=== PATIENT | male | born 1930 | race Caucasian/White ===

== ENCOUNTER 2017-03-18 16:48 | Inpatient (IN) | payer MEDICARE, OTHER ==
[~2017-03-18] VITALS: Ht 195.6 cm; Wt 115.7 kg
[~2017-03-18 16:48] MED LIST: ACYCLOVIR 800800 MG PO; CIPRO500 MG PO; COUMADIN 1MG TAB1 M1 PO; CRESTOR5 MG PO; GLUCOSAMINE HC500 MG PO; I-CAPS; MUCINEX TA600 MG/TA1 PO; NORCO 5-325 TA1 EACH PO; OMEGA-31000 MG PO; OMEPRAZOLE20 M2 PO; PROPAFENONE 15150 MG PO; VERAPAMIL E.R240 M1 PO; VITAMIN D3400 UNIT PO
[2017-03-18 16:53] VITALS: BP 159/81
[2017-03-18] MEDS ORDERED: AMIODARONE HCL100 MG PO (16:58)
[2017-03-18] MEDS ORDERED: VITAMIN D3400 UNIT PO (17:00)
[2017-03-18] MEDS ORDERED: VITAMIN E400 UNIT PO (17:01)
[2017-03-18] MEDS ORDERED: SYNTHROID75 MCG PO (17:01)
[2017-03-18] MEDS ORDERED: ASPIR 8181 MG PO (17:01)
[2017-03-18 17:19] LABS: HEMATOCRIT 41.1 % (42.0-52.0); HEMOGLOBIN 13.5 gm/dL (14.0-18.0); MCH 31.4 pg (26.0-34.0); MCHC 32.9 g/dL (28.0-37.0); MCV 95.5 fL (80.0-100.0); MPV 8.7 fl. (7.2-11.1); NUCLEATED RBCS 0 /100WBC; PLATELET COUNT* 146 thou/uL (150-400); RBC 4.31 mil/uL (4.50-6.00); RDW-CV 15.2 % (10.5-14.5); WBC 7.3 thou/uL (4.0-11.0)
[2017-03-18 17:29] LABS: ANION GAP 11 mmol/L (7-16); BUN 13 mg/dL (7-18); CALCIUM 8.5 mg/dL (8.5-10.1); CHLORIDE 98 mmol/L (98-107); CO2 27 mmol/L (21-32); GLUCOSE 132 mg/dL (70-99); POTASSIUM 3.3 mmol/L (3.5-5.1); SODIUM 136 mmol/L (136-145)
--- NOTE | 2017-03-18 17:33 | NUR ---
PT UNABLE TO PROVIDE URINE AT THIS TIME.
[2017-03-18 17:38] LABS: INFLUENZA B ANTIGEN None Detected (None Detect)
[2017-03-18 17:40] LABS: ALBUMIN 3.8 g/dL (3.4-5.0); ALKALINE PHOSPHATASE 59 U/L (46-116); INR 2.5; LIPASE 76 U/L (73-393); NT-PRO BRAIN NAT PEPTIDE 2387 pg/mL (<300); PROTIME 24.1 Seconds (9.20-11.50); SGOT 52 U/L (15-37); SGPT 38 U/L (30-65); TOTAL BILIRUBIN 0.8 mg/dL (<0.1-1.0); TOTAL PROTEIN 8.1 g/dL (6.4-8.2); TROPONIN-I LEVEL <0.06 ng/mL (<0.06)
[2017-03-18 17:41] LABS: ABSOLUTE LYMPHOCYTES 0.4 thou/uL (0.8-5.3); ABSOLUTE MONOCYTES 0.1 thou/uL (0.0-1.2); ABSOLUTE NEUTROPHILS 6.8 thou/uL (1.6-8.1); PLATELET ESTIMATE ADEQUATE
--- NOTE | 2017-03-18 18:53 | NUR ---
REPORT GIVEN TO SANDRA RHOADES.
--- NOTE | 2017-03-18 19:49 | NUR ---
PATIENT ADMITTED WITH PNEUMONIA WITH ORDERS FROM DR MATHEWS FOR PHARMACY TO DOSE VANCOMYCIN. PT HAS NO HISTORY OF RENAL DYSFUNCTION AND CURRENT LABS INCLUDE WBC=7.3, CR=1.0, CRCL (ADJUSTED BW) =68.2. PER PHARMACY PROTOCOL, PATIENT WILL RECEIVE A 2G VANCOMYCIN BOLUS, FOLLOWED BY 1G Q8H THEREAFTER. A TROUGH IS SCHEDULED FOR 03/20 AT 1130 AND PHARMACY WILL FOLLOW.
[2017-03-18 20:15] VITALS: BP 121/70
[2017-03-18 21:30] VITALS: BP 115/77
[2017-03-19] VITALS: BP 112/67
--- NOTE | 2017-03-19 00:14 | NUR ---
PATIENT ADMITTED TO FLOOR FROM ER AT 2130, ADMITTED FOR RESP DISTRESS, INFLUENCA A, AND FALL AT HOME. PATIENT SUSTAINED A CONTUSION TO BACK AND RT RIB AREA FROM FALL AT HOME. PAIN MEDS WERE GIVEN IN ER AND WHEN ARRIVED TO FLOOR PATIENT DENIED ANY PAIN. LS DIMINISHED. ABD SOFT, COUGH LOOSE, O2 2 LITERS NC, IV VANCO RUNNING, NS AT 100. NO SIGNS OF DISTRESS OR DISCOMFORT AT THIS TIME.
--- NOTE | 2017-03-19 02:47 | NUR ---
IV ACCIDENTALLY PULLED OUT BY PT. NEW SITE IN RT HAND. VANCO INFUSING. COUGH NON-PRODUCTIVE. DENIES PAIN OR DISCOMFORT.
[2017-03-19 04:11] VITALS: BP 120/80
[2017-03-19 04:21] LABS: ABSOLUTE LYMPHOCYTES 0.3 thou/uL (0.8-5.3); ABSOLUTE MONOCYTES 0.1 thou/uL (0.0-1.2); ABSOLUTE NEUTROPHILS 5.2 thou/uL (1.6-8.1); BASOPHILS 0.3 %; HEMATOCRIT 38.6 % (42.0-52.0); HEMOGLOBIN 12.5 gm/dL (14.0-18.0); LYMPHOCYTES 4.9 %; MCH 31.5 pg (26.0-34.0); MCHC 32.5 g/dL (28.0-37.0); MCV 96.9 fL (80.0-100.0); MONOCYTES 2.6 %; MPV 8.9 fl. (7.2-11.1); NUCLEATED RBCS 0 /100WBC; PLATELET COUNT* 122 thou/uL (150-400); POLYS 92.2 %; RBC 3.98 mil/uL (4.50-6.00); RDW-CV 15.5 % (10.5-14.5); WBC 5.6 thou/uL (4.0-11.0)
[2017-03-19 04:33] LABS: INR 2.3; PROTIME 22.2 Seconds (9.20-11.50)
[2017-03-19 04:56] LABS: CALCIUM 7.8 mg/dL (8.5-10.1); CREATININE 0.9 mg/dL (0.6-1.3); POTASSIUM 3.4 mmol/L (3.5-5.1)
[2017-03-19 08:00] VITALS: BP 150/87
[2017-03-19 12:48] VITALS: BP 129/70
--- NOTE | 2017-03-19 12:53 | NUR ---
ASSUMED CARE OF PT AT APPROXIMATELY 0730. PT SITTING ON EDGE OF BED WAITING FOR BREAKFAST. PT A&0X4. DENIES ANY PAIN OR SHORTNESS OF BREATH. STATES THERE IS SOME DISCOMFORT WHEN HE COUGHS DUE TO HIS BRUISED RIBS. PT TRACING AFIB ON THE TESTING CONSULTANT. ON 2L NC SAT 96%. PT IN DROPLET ISOLATION FOR INFLUENZA A. PT UP WITH 1 ASSIST TO BATHROOM. IVF. AM ASSESSMENT CHARTED. MEDICATIONS PER MAR. PT REPOSITIONS SELF IN BED WITH REMINDERS, HOURLY ROUNDING OBSERVED. BED IN LOW POSITION. BED ALARM IN PLACE. FALL PRECAUTIONS IN PLACE. CALL LIGHT WITHIN REACH. WILL CONTINUE PLAN OF CARE.
[2017-03-19 16:00] VITALS: BP 130/71
--- NOTE | 2017-03-19 18:13 | NUR ---
NO ACUTE CHANGES THROUGHOUT SHIFT. REFER TO CHARTING. PT COMPLAINED OF PAIN TO BACK FROM COUGHING. TREATED WITH TRAMADOL WITH COMPLETE RELIEF. PT ALSO STARTED ON TESSALON PEARLS. CONTINUES TO BE IN DROPLET PRECAUTIONS FOR INFLUENZA. CONTINUES TO TRACE AFIB ON THE CHUCK BONER. PT TITRATED OFF OXYGEN AND IS CURRENTLY ON RA SAT 95%. DENIES ANY SHORTNESS OF BREATH. IVF DISCONTINUED. PT UP WITH 1 ASSIST TO BATHROOM. MEDICATIONS PER MAR. PT REPOSITIONS SELF IN BED WITH REMINDERS. HOURLY ROUNDING OBSERVED. BED IN LOW POSITION. BED ALARM IN PLACE. FALL PRECAUTIONS IN PLACE. CALL LIGHT WITHIN REACH. WILL CONTINUE PLAN OF CARE.
[2017-03-19 20:40] VITALS: BP 142/92
[2017-03-20] VITALS: BP 132/86
[2017-03-20 04:00] VITALS: BP 116/76
[2017-03-20 05:42] LABS: HEMATOCRIT 38.5 % (42.0-52.0); HEMOGLOBIN 12.8 gm/dL (14.0-18.0); MCH 31.7 pg (26.0-34.0); MCHC 33.1 g/dL (28.0-37.0); MCV 95.8 fL (80.0-100.0); MPV 9.4 fl. (7.2-11.1); NUCLEATED RBCS 0 /100WBC; PLATELET COUNT* 129 thou/uL (150-400); RBC 4.02 mil/uL (4.50-6.00); RDW-CV 15.5 % (10.5-14.5); WBC 14.6 thou/uL (4.0-11.0)
[2017-03-20 05:54] LABS: INR 2.1; PROTIME 20.1 Seconds (9.20-11.50)
[2017-03-20 05:56] LABS: CREATININE 0.9 mg/dL (0.6-1.3); POTASSIUM 3.7 mmol/L (3.5-5.1)
[2017-03-20 06:12] LABS: ABSOLUTE LYMPHOCYTES 1.2 thou/uL (0.8-5.3); ABSOLUTE MONOCYTES 0.3 thou/uL (0.0-1.2); ABSOLUTE NEUTROPHILS 13.1 thou/uL (1.6-8.1); ANISOCYTOSIS 1+; PLATELET ESTIMATE DECREASED; POIKILOCYTOSIS 1+
--- NOTE | 2017-03-20 07:49 | NUR ---
Pt reports nagging cough this am; loose and non-productive. VSS; Afib per monitor. Will continue to monitor.
[2017-03-20 08:00] VITALS: BP 126/83
[2017-03-20 09:46] LABS: URINE BILIRUBIN NEGATIVE (Negative); URINE BLOOD NEGATIVE (Negative); URINE CLARITY CLEAR; URINE COLOR YELLOW; URINE GLUCOSE-RANDOM NEGATIVE (Negative); URINE KETONES NEGATIVE (Negative); URINE LEUKOCYTES-REFLEX NEGATIVE (Negative); URINE NITRITE-REFLEX NEGATIVE (Negative); URINE PROTEIN TRACE (Negative); URINE SPECIFIC GRAVITY 1.025 (1.005-1.030); URINE UROBILINOGEN 0.2 E.U./dl (0.2-1.0)
--- NOTE | 2017-03-20 11:58 | NUR ---
ASSUMED RESPONSBILITY OF PT THIS AM PT IS ALERT AND ORIENTED ON PRECAUTIONS FOR THE FLU PT WITH WET COUGH AND CONGESTION, NONPRODUCTIVE ENCOURAGED FLUIDS C/O PAIN TO RIGHT RIB AREA AND BACK ESPECIALLY WHEN COUGHING PT FELL AT HOME BRUISING ALL OVER ON COUMADIN A-FIB TRACKING ON THE MONITOR DOES GET TACHY AT TIMES BUT CONTROLLED MOSTLY IV CONT TO RIGHT HAND WITH IV ANTIBIOTICS PT STATES FOR BROTHER THE END OF THIS WEEK AND WOULD LIKE TO GO GOALS FOR THIS TO HAPPEN SBA FOR WEAKNESS OTHERWISE PT USES URINAL DARK YELLOW URINE LBM T-1 TRAMADOL GIVEN EARLIER FOR PAIN AND PLAN FOR LIDOCAINE PATCH ACCORDING TO DR MATHEWS CALL LIGHT IN REACH
[2017-03-20 12:00] VITALS: BP 130/72
--- NOTE | 2017-03-20 14:24 | NUR ---
PATIENT HAS BEEN RECEIVING VANCOMYCIN 1G Q8H FOR THE TREATMENT OF PNEUMONIA. A LEVEL DRAWN 03/20 YIELDED A RESULT OF 35 MCG/ML. HOWEVER, THE MEDICATION WAS HUNG AT 1251, PRIOR TO THE BLOOD DRAW AT 1333. THEREFORE, THIS RESULT IS NOT A TROUGH. THE PATIENT'S CRCL REMAINS STEADY AND A NEW TROUGH HAS BEEN SCHEDULED FOR 03/21 AT 1330.
--- NOTE | 2017-03-20 14:28 | NUR ---
CHART REVIEWED, SPOKE WITH PT, EXPLAINED ROLE OF CASE T. PT LIVES AT HOME WITH HIS . HE SAID HE HAS BEEN ACTIVE AND INDEP. HE HAS NO DME AT HOME, NO OXYGEN OR NEBULIZER. HE SAID HE WAS HOSPITALIZED WITH PNEUMONIA ABOUT A YEAR AGO AND WAS TOLD TO GET AN O2 SAT MONITOR TO KEEP AN EYE ON HIS SATS. HE SAID HIS ROOM AIR O2 SAT IS USUALLY ABOUT 95-97%. PT PLANS ON RETURNING HOME WITH HIS , HE DENIES ANY DISCHARGE NEEDS. CASE JIM WILL CONTINUE TO FOLLOW.
--- NOTE | 2017-03-20 14:39 | NUR ---
CALLED PHARMACY WITH CRITICAL VANC TROUGH THIS NURSE HAD ALREADY HUNG THE BAG AND DIDN'T NOTICE IT WAS TO BE DRAWN CONT THE VANC BAG AND REDRAW TOMORROW
--- NOTE | 2017-03-20 15:28 | EKG ---
[place] [address] ELECTROCARDIOGRAM REPORT Name: CATHERINEALANAEDYO Room: [address] ADM IN M.R.#: [id number] Admission: 03/18/17 Attend Phys: Topher Pérez MD Discharge: Date of : 32 Report #: [id number] THIS REPORT FOR: //name// [facility] ED Test Date: 2017-03-18 Test Time: 17:03:12 Pat Name: JESSY KENT Department: Room: [facility] Gender: Bung Driver: Alexandra BARILLAS : 1930 Requested By: Demetrio De Los Santos Order Number: [id number] MD: Joselito Baeza Measurements Intervals [place] Rate: 95 P: [place]: QRS: 84 QRSD: 100 T: -90 QT: 376 QTc: 473 Interpretive Statements Atrial fibrillation Borderline right axis deviation Repol abnrm suggests ischemia, diffuse leads No previous ECG available for comparison Electronically Signed On 03-20-2017 15:28:42 INSTRUMENT LENS GENERATOR by Joselito Baeza [email or web address] <ELECTRONICALLY SIGNED> By: Joselito Baeza MD, [facility] 03/20/17 1528 1703 1703 Joselito Baeza MD, [facility] /EPI
[2017-03-20 16:59] VITALS: BP 129/85
--- NOTE | 2017-03-20 18:02 | NUR ---
CHEST X-RAY CAME BACK WITH RIGHT RIB FRACTURE CONT WITH PRN TRAMADOL A-FIB ON THE MONITOR TACHY AT TIMES PT USES URINAL DARK YELLOW IN COLOR COUGH AND CONGESTION CONTINUES INFECTIOUS DISEASE CONSULTED
[2017-03-20 20:44] VITALS: BP 147/88
[2017-03-21] VITALS: BP 165/97
[2017-03-21 04:00] VITALS: BP 109/71
[2017-03-21 04:52] LABS: INR 2.4; PROTIME 22.7 Seconds (9.20-11.50)
[2017-03-21 05:08] LABS: MAGNESIUM 2.1 mg/dL (1.8-2.4)
--- NOTE | 2017-03-21 05:57 | NUR ---
PT IS ABLE TO COMMUNICATE NEEDS TO STAFF EFFECTIVELY. CURRENT PAIN MEDICATION REGIMEN HAS BEEN ADEQUATE FOR CONTROLLING HIS PAIN UP TO THIS TIME. DROPLET ISOLATION MAINTAINED FOR POSITIVE FLU SWAB. VANCO ON HOLD (SUPRATHERAPEUTIC) UNTIL REPEAT TROUGH TO BE DRAWN LATER TODAY.
[2017-03-21 08:15] VITALS: BP 106/69
[2017-03-21 11:38] VITALS: BP 113/69
--- NOTE | 2017-03-21 12:00 | NUR ---
ASSUMED PT CARE AT 0730, FULL ASSESMENT DONE CHARTED. PT A/O X4, VERY [place], PT HAS BRUISING FROM RECENT FALL. REVIEWED FALL RISKS WITH PT, CALL LIGHT USED APPROPRIALTY AND BED ALARM ON. PT PROVIDED WITH IS FROM RT. PT STATES HE CANNOT TAKE A DEEP BREATH, IT IS PAINFUL. PT STARTED ON MUCINEX. UNPRODUCTIVE COUGH NOTED. TRAMADOL GIVEN FOR PAIN. VSS, A FIB ON THE MONITOR. WILL CONTINUE WITH PLAN OF CARE
[2017-03-21 15:38] VITALS: BP 136/78
[2017-03-21 19:45] VITALS: BP 145/77
[2017-03-22] VITALS: BP 125/79
[2017-03-22 04:00] VITALS: BP 107/59
[2017-03-22 04:44] LABS: ABSOLUTE LYMPHOCYTES 0.6 thou/uL (0.8-5.3); ABSOLUTE MONOCYTES 0.6 thou/uL (0.0-1.2); ABSOLUTE NEUTROPHILS 7.2 thou/uL (1.6-8.1); BASOPHILS 0.1 %; EOSINOPHILS 0.1 %; HEMATOCRIT 37.4 % (42.0-52.0); HEMOGLOBIN 12.5 gm/dL (14.0-18.0); LYMPHOCYTES 6.6 %; MCH 32.1 pg (26.0-34.0); MCHC 33.5 g/dL (28.0-37.0); MCV 95.9 fL (80.0-100.0); MONOCYTES 7.2 %; MPV 9.3 fl. (7.2-11.1); NUCLEATED RBCS 0 /100WBC; PLATELET COUNT* 112 thou/uL (150-400); RDW-CV 15.4 % (10.5-14.5); WBC 8.3 thou/uL (4.0-11.0)
[2017-03-22 04:50] LABS: CALCIUM 7.8 mg/dL (8.5-10.1); CREATININE 0.9 mg/dL (0.6-1.3); POTASSIUM 3.7 mmol/L (3.5-5.1)
[2017-03-22 05:02] LABS: INR 2.6; PROTIME 24.6 Seconds (9.20-11.50)
--- NOTE | 2017-03-22 05:16 | NUR ---
Pt pleasant and coperative. States he is finally able to cough up some phlegm during this shift. Afib per monitor, VSS. ON 2L O2 per NC overnight per pt request. Breath sounds continue to be coarse; and noted to have loose, nontpoductive cough. Will continue to monitor.
[2017-03-22 08:00] VITALS: BP 138/92
--- NOTE | 2017-03-22 08:00 | NUR ---
CHNAGE OF SHIFT, BEDSIDE REPORT GIVEN ASSUMED PATIENT CARE PATIENT SEEN AT BEDSIDE AWAKE AND LAYING IN BED, NO REQUESTS AT THIS TIME
[2017-03-22 11:51] VITALS: BP 134/72
[2017-03-22 16:19] VITALS: BP 140/87
--- NOTE | 2017-03-22 19:17 | NUR ---
patient remains a and o x 4 afib, rates 70s-90s lungs coarse/dim o2 3l nc o2 sats mid 90s loose cough poor appetite last bm t-3 fair uo, dark yellow urine up with standby various bruises noted, there on admit freq c/o pain r rib, ref pain medication most of the day request for pain medication at end of day, treated with ultram with some relief remains in [facility] isolation for flu iv 22 ga in r h call light in place and instruction given and followed new orders for flexeril and increased steroids
[2017-03-22 21:08] VITALS: BP 161/96
[2017-03-23 00:05] VITALS: BP 143/80
[2017-03-23 04:00] VITALS: BP 94/64
[2017-03-23 04:59] LABS: INR 2.7; PROTIME 25.7 Seconds (9.20-11.50)
--- NOTE | 2017-03-23 06:48 | NUR ---
PT IS ABLE TO COMMUNICATE NEEDS TO STAFF EFFECTIVELY. CURRENT PAIN MEDICATION REGIMEN HAS BEEN ADEQUATE FOR CONTROLLING HIS PAIN UP TO THIS TIME. DROPLET ISOLATION FOR POSITIVE FLU SWAB MAINTAINED.
--- NOTE | 2017-03-23 07:15 | NUR ---
ASSUMED CARE OF PT ASSESSED AND DOCUMENTED. PT ON CARDIAC MONITER TRACING A-FIB HR 77. PT IS A&O WITH NO C/O OF PAIN. PAIN MED GIVEN BY PRIOR SHIFT RN FOR RIB PAIN. PT IS ON FALL PROTOCOL PER FACILITY. PT IS ON ISOLATION FOR THE FLU. PT REFUSES HIS SCD'S. EDUCATION GIVEN. .
[2017-03-23 08:00] VITALS: BP 126/80
--- NOTE | 2017-03-23 11:01 | NUR ---
PER DR PELAYO PT MAY BE REMOVED FROM ISOLATION.
[2017-03-23 12:13] VITALS: BP 145/83
[2017-03-23 16:20] VITALS: BP 137/78
--- NOTE | 2017-03-23 18:46 | NUR ---
PT HAS SET AT BEDSIDE CHAIR READING MOST OF THIS SHIFT. EDUCATION GIVEN ON DEMAND. HOURLY ROUNDING COMPLETE. PT WAS REMOVED FROM ISOLATION TODAY. PT HAS REMAINED ON ROOM AIR.
[2017-03-23 20:00] VITALS: BP 139/81
[2017-03-24 00:08] VITALS: BP 141/87
[2017-03-24 04:05] VITALS: BP 114/70
[2017-03-24 04:42] LABS: HEMATOCRIT 37.9 % (42.0-52.0); HEMOGLOBIN 12.6 gm/dL (14.0-18.0); MCH 31.5 pg (26.0-34.0); MCHC 33.2 g/dL (28.0-37.0); MCV 94.9 fL (80.0-100.0); MPV 9.1 fl. (7.2-11.1); NUCLEATED RBCS 0 /100WBC; PLATELET COUNT* 150 thou/uL (150-400); RBC 3.99 mil/uL (4.50-6.00); RDW-CV 15.2 % (10.5-14.5); WBC 8.9 thou/uL (4.0-11.0)
--- NOTE | 2017-03-24 04:44 | NUR ---
A&O X4, CALM COOPERITVE. PT [place]. PT HAS PAIN IN RIGHT RIBS, GIVEN PAIN MEDICATION X2 WITH RELIEF SHOWN. PT HAS BRUSES FROM PREVIOUS FALL AT HOME. PT REPORTS BM OVER A WEEK AGO, ACTIVE BOWEL SOUNDS, STOOL SOFTNER ORDERED. DIM LUNG SOUNDS. PT IS AFIB ON THE MONITOR, CHRONIC STABLE AFIB. ON RA O2 SAT 95. REPORTED LOOSE COUGH AND UNABLE TO TO COUGH ANYTHING UP DUE TO PAIN IN RIBS FROM BROKEN RIB. PT STANDBY DUE TO FALL. FALL PRECAUTIONS IN PLACE. HOURLY ROUNDIN FOR SAFETY. VITALS WNL.
[2017-03-24 04:48] LABS: CALCIUM 8.4 mg/dL (8.5-10.1); CREATININE 0.8 mg/dL (0.6-1.3); POTASSIUM 4.3 mmol/L (3.5-5.1)
[2017-03-24 04:51] LABS: INR 3.5; PROTIME 33.6 Seconds (9.20-11.50)
[2017-03-24 05:18] LABS: ABSOLUTE LYMPHOCYTES 0.4 thou/uL (0.8-5.3); ABSOLUTE MONOCYTES 0.2 thou/uL (0.0-1.2); ABSOLUTE NEUTROPHILS 8.4 thou/uL (1.6-8.1)
[2017-03-24 05:19] LABS: PLATELET ESTIMATE ADEQUATE
[2017-03-24 12:22] VITALS: BP 116/75
--- NOTE | 2017-03-24 13:30 | NUR ---
ASSUMED PT CARE AT 0700 PT STATES HAS PAIN WHEN UP MOVING AND DOES NOT HAVE PAIN WHEN SITTING PT UP WITH PHYSICIAL THERAPY USING WALKER AMBULATING IN HALLWAY GAVE PT PAIN MEDS REASSESSED PT STATES PAIN MEDS HELPED, PT DENIES SOA ON RA, PT IS COOPERATIVE FAMILY IN ROOM, PT HAS MULTIPLE BRUISING FROM FALL APPLIED LIDOCAINE PATCH, GAVE PT ANTIBIOTIC NO ADVERSE EFFECTS NOTED, PT IS SR ON MONITOR, WILL CONTINUE TO MONITOR
[2017-03-24 16:14] VITALS: BP 134/84
[2017-03-24 20:33] VITALS: BP 123/74
[2017-03-25] VITALS: BP 140/93
--- NOTE | 2017-03-25 03:37 | NUR ---
Pt states that he has been better able to control pain level to right side by utilizing his left side more for position changes, getting out of bed, etc. States it is still painful to cough; loose non-productive cough noted. States he coughs up some phlegm on occasion, but not able to cough very hard to clear secretions adequately. Afebrile, VSS. Otherwise no complaints. Will continue to monitor.
[2017-03-25 04:07] VITALS: BP 142/76
[2017-03-25 04:35] LABS: INR 4.7
[2017-03-25 07:30] VITALS: BP 155/92
[2017-03-25 08:00] VITALS: BP 155/92
[2017-03-25] MEDS ORDERED: PREDNISONE 10 M10 MG PO (08:45)
[2017-03-25 12:35] VITALS: BP 155/92
[2017-08-23] MEDS ORDERED: PACERONE 200 M200 M1 PO (13:36)
[2017-08-28] MEDS ORDERED: NORCO 5-325 TA1 EACH PO (14:53)
[2017-09-25] MEDS ORDERED: HYDROCODON-ACE1 EAC5 PO (14:37)
[2018-01-22] MEDS ORDERED: HYDROCODON-ACE1 EAC5 PO (08:23)
[2018-01-22] MEDS ORDERED: BUTRANS1 EAC1 TRANSDERM (15:18)
== END 2017-03-25 15:05 | disposition home or self-care (01) | DRG 871 ==
LOC: M.ERS 16:48 → M.2W 18:07 → M.TBA-ER 18:07 → M.2W 21:30
PROVIDERS: Family Medicine; Internal Medicine; ADMIT Internal Medicine
DX: A41.9 Sepsis, unspecified organism (principal); J09.X1 Influenza due to identified novel influenza A virus with pneumonia; J15.6 Pneumonia due to other Gram-negative bacteria; J44.1 Chronic obstructive pulmonary disease with (acute) exacerbation; S22.31XA Fracture of one rib, right side, initial encounter for closed fracture; J44.0 Chronic obstructive pulmonary disease with (acute) lower respiratory infection; R65.10 Systemic inflammatory response syndrome (SIRS) of non-infectious origin without acute organ dysfunction; I48.91 Unspecified atrial fibrillation; E78.5 Hyperlipidemia, unspecified; K21.9 Gastro-esophageal reflux disease without esophagitis; Z88.1 Allergy status to other antibiotic agents; Z88.8 Allergy status to other drugs, medicaments and biological substances; Z87.891 Personal history of nicotine dependence; Z79.01 Long term (current) use of anticoagulants; Z79.82 Long term (current) use of aspirin; Z79.899 Other long term (current) drug therapy; W18.39XA Other fall on same level, initial encounter; Y93.89 Activity, other specified; Y92.89 Other specified places as the place of occurrence of the external cause; Y99.8 Other external cause status

== ENCOUNTER 2017-03-27 09:56 | Emergency (ER) | payer MEDICARE, OTHER ==
[~2017-03-27] VITALS: Ht 195.6 cm; Wt 116.2 kg
[~2017-03-27 09:56] MED LIST changes: +AMIODARONE HCL100 MG PO; +ASPIR 8181 MG PO; +PREDNISONE 10 M10 MG PO; +SYNTHROID75 MCG PO; +VITAMIN E400 UNIT PO
[2017-03-27 10:57] LABS: HEMATOCRIT 43.8 % (42.0-52.0); HEMOGLOBIN 14.3 gm/dL (14.0-18.0); MCH 31.2 pg (26.0-34.0); MCHC 32.7 g/dL (28.0-37.0); MCV 95.5 fL (80.0-100.0); MPV 8.7 fl. (7.2-11.1); NUCLEATED RBCS 0 /100WBC; PLATELET COUNT* 234 thou/uL (150-400); RBC 4.59 mil/uL (4.50-6.00); RDW-CV 15.1 % (10.5-14.5); WBC 9.2 thou/uL (4.0-11.0)
[2017-03-27 11:00] LABS: ANION GAP 4 mmol/L (7-16); BUN 22 mg/dL (7-18); CALCIUM 8.5 mg/dL (8.5-10.1); CHLORIDE 99 mmol/L (98-107); CO2 35 mmol/L (21-32); GLUCOSE 122 mg/dL (70-99); POTASSIUM 3.4 mmol/L (3.5-5.1); SODIUM 138 mmol/L (136-145)
[2017-03-27 11:04] LABS: APTT 33.7 Seconds (25.0-31.3); INR 2.5; PROTIME 24.2 Seconds (9.20-11.50)
[2017-03-27 11:12] LABS: ALBUMIN 3.2 g/dL (3.4-5.0); ALKALINE PHOSPHATASE 67 U/L (46-116); LIPASE 197 U/L (73-393); SGOT 95 U/L (15-37); SGPT 160 U/L (30-65); TOTAL PROTEIN 7.6 g/dL (6.4-8.2)
[2017-03-27 11:15] LABS: ABSOLUTE LYMPHOCYTES 1.5 thou/uL (0.8-5.3); ABSOLUTE MONOCYTES 0.4 thou/uL (0.0-1.2); ABSOLUTE NEUTROPHILS 7.4 thou/uL (1.6-8.1); PLATELET ESTIMATE ADEQUATE
[2017-03-27 11:38] LABS: NT-PRO BRAIN NAT PEPTIDE 3660 pg/mL (<300); TROPONIN-I LEVEL <0.06 ng/mL (<0.06)
[2017-03-27 12:10] VITALS: BP 133/82
[2017-03-27 12:11] LABS: INFLUENZA A ANTIGEN None Detected (None Detect); INFLUENZA B ANTIGEN None Detected (None Detect)
--- NOTE | 2017-03-27 17:46 | EKG ---
[place] [address] ELECTROCARDIOGRAM REPORT Name: JESSY KENT Room: [facility]#: [id number] Admission: 03/27/17 Attend Phys: Discharge: 03/27/17 Date of : 32 Report #: [id number] THIS REPORT FOR: //name// [facility] ED Test Date: 2017-03-27 Test Time: 10:37:13 Pat Name: JESSY KENT Department: Room: Gender: M Auto Driver: Alexandra HANCOCK : 1930 Requested By: Demetrio De Los Santos Order Number: [id number] MD: Nabor Saldivar Measurements Intervals [place] Rate: 120 P: [place]: QRS: 75 QRSD: 98 T: -75 QT: 352 QTc: 498 Interpretive Statements Atrial fibrillation Nonspecific repol abnormality, diffuse leads Compared to ECG 03/18/2017 17:03:12 Possible ischemia no longer present Electronically Signed On 03-27-2017 17:46:46 ACADEMIC SPECIALIST by Nabor Saldivar [email or web address] <ELECTRONICALLY SIGNED> By: Nabor Saldivar MD, [facility] 03/27/17 1746 1037 1037 Nabor Saldivar MD, FAC /EPI
[2017-08-23] MEDS ORDERED: PACERONE 200 M200 M1 PO (13:36)
[2017-08-28] MEDS ORDERED: NORCO 5-325 TA1 EACH PO (14:53)
[2017-09-25] MEDS ORDERED: HYDROCODON-ACE1 EAC5 PO (14:37)
[2018-01-22] MEDS ORDERED: HYDROCODON-ACE1 EAC5 PO (08:23)
[2018-01-22] MEDS ORDERED: BUTRANS1 EAC1 TRANSDERM (15:18)
== END 2017-03-27 12:11 | disposition home or self-care (01) ==
LOC: M.ERS 09:56
PROVIDERS: Family Medicine
DX: R60.9 Edema, unspecified (principal); I10 Essential (primary) hypertension; I48.91 Unspecified atrial fibrillation; E03.9 Hypothyroidism, unspecified; Z95.2 Presence of prosthetic heart valve; Z98.890 Other specified postprocedural states; Z88.1 Allergy status to other antibiotic agents; Z88.8 Allergy status to other drugs, medicaments and biological substances

== ENCOUNTER → 2017-04-19 | Outpatient (CLI) | payer MEDICARE, OTHER ==
[~2017-04-19] MED LIST changes: +AZITHROMYCIN 2250 MG PO; +BUTRANS1 EAC1 TRANSDERM; +CARISOPRODOL 3350 MG PO; +CEFUROXIME500 MG PO; +COUMADIN 3 MG TA3 M1 PO; +DOXYCYCLINE 10100 MG PO; +HYDROCODON-ACE1 EAC5 PO; +LIDODERM1 EACH TRANSDERM; +PACERONE 200 M200 M1 PO; +PERCOCET PO; +PREDNISONE10 MG PO; +TESSALON PERLE100 MG PO
== END ==
LOC: M.RAD 09:59
DX: M16.0 Bilateral primary osteoarthritis of hip (principal); M47.896 Other spondylosis, lumbar region; M47.898 Other spondylosis, sacral and sacrococcygeal region; J44.1 Chronic obstructive pulmonary disease with (acute) exacerbation; J96.90 Respiratory failure, unspecified, unspecified whether with hypoxia or hypercapnia; I48.0 Paroxysmal atrial fibrillation; I35.0 Nonrheumatic aortic (valve) stenosis; J18.9 Pneumonia, unspecified organism; I10 Essential (primary) hypertension; E78.00 Pure hypercholesterolemia, unspecified

== ENCOUNTER 2017-05-25 19:27 | Inpatient (IN) | payer MEDICARE, OTHER ==
[~2017-05-25] VITALS: Ht 195.6 cm; Wt 113.1 kg
[~2017-05-25 19:27] MED LIST changes: -AZITHROMYCIN 2250 MG PO; -BUTRANS1 EAC1 TRANSDERM; -CARISOPRODOL 3350 MG PO; -CEFUROXIME500 MG PO; -COUMADIN 3 MG TA3 M1 PO; -DOXYCYCLINE 10100 MG PO; -HYDROCODON-ACE1 EAC5 PO; -LIDODERM1 EACH TRANSDERM; -PACERONE 200 M200 M1 PO; -PERCOCET PO; -PREDNISONE10 MG PO; -TESSALON PERLE100 MG PO
[2017-05-25 19:30] VITALS: BP 162/79
[2017-05-25 20:25] LABS: HEMATOCRIT 38.6 % (42.0-52.0); HEMOGLOBIN 12.6 gm/dL (14.0-18.0); MCH 31.3 pg (26.0-34.0); MCHC 32.6 g/dL (28.0-37.0); MCV 96.1 fL (80.0-100.0); MPV 8.1 fl. (7.2-11.1); NUCLEATED RBCS 0 /100WBC; PLATELET COUNT* 273 thou/uL (150-400); RBC 4.02 mil/uL (4.50-6.00); WBC 7.9 thou/uL (4.0-11.0)
[2017-05-25 20:31] LABS: ANION GAP 7 mmol/L (7-16); BUN 16 mg/dL (7-18); CALCIUM 8.8 mg/dL (8.5-10.1); CHLORIDE 103 mmol/L (98-107); CO2 29 mmol/L (21-32); CREATININE 0.8 mg/dL (0.6-1.3); GLUCOSE 116 mg/dL (70-99); INR 2.1; POTASSIUM 3.7 mmol/L (3.5-5.1); SODIUM 139 mmol/L (136-145)
[2017-05-25 20:42] LABS: ALBUMIN 3.4 g/dL (3.4-5.0); ALKALINE PHOSPHATASE 77 U/L (46-116); LIPASE 146 U/L (73-393); MAGNESIUM 1.9 mg/dL (1.8-2.4); NT-PRO BRAIN NAT PEPTIDE 1021 pg/mL (<300); SGOT 32 U/L (15-37); SGPT 27 U/L (30-65); TOTAL BILIRUBIN 0.7 mg/dL (<0.1-1.0); TOTAL PROTEIN 7.8 g/dL (6.4-8.2); TROPONIN-I LEVEL <0.06 ng/mL (<0.06)
[2017-05-25 21:03] LABS: ABSOLUTE BASOPHILS 0.2 thou/uL (0.0-0.2); ABSOLUTE EOSINOPHILS 0.2 thou/uL (0.0-0.7); ABSOLUTE LYMPHOCYTES 0.9 thou/uL (0.8-5.3); ABSOLUTE MONOCYTES 0.6 thou/uL (0.0-1.2); ABSOLUTE NEUTROPHILS 6.1 thou/uL (1.6-8.1); PLATELET ESTIMATE ADEQUATE
[2017-05-25 22:59] VITALS: BP 140/85
[2017-05-26 08:00] VITALS: BP 118/73
[2017-05-26 09:05] LABS: ABSOLUTE LYMPHOCYTES 0.3 thou/uL (0.8-5.3); ABSOLUTE MONOCYTES 0.1 thou/uL (0.0-1.2); ABSOLUTE NEUTROPHILS 7.9 thou/uL (1.6-8.1); BASOPHILS 0.2 %; HEMATOCRIT 38.8 % (42.0-52.0); LYMPHOCYTES 3.5 %; MCH 31.5 pg (26.0-34.0); MCHC 33.4 g/dL (28.0-37.0); MCV 94.4 fL (80.0-100.0); MONOCYTES 0.8 %; MPV 8.2 fl. (7.2-11.1); NUCLEATED RBCS 0 /100WBC; PLATELET COUNT* 275 thou/uL (150-400); POLYS 95.5 %; RBC 4.11 mil/uL (4.50-6.00); RDW-CV 15.6 % (10.5-14.5); WBC 8.3 thou/uL (4.0-11.0)
[2017-05-26 09:13] LABS: CALCIUM 8.7 mg/dL (8.5-10.1); CREATININE 0.9 mg/dL (0.6-1.3); POTASSIUM 3.9 mmol/L (3.5-5.1)
--- NOTE | 2017-05-26 12:48 | EKG ---
[place] [address] ELECTROCARDIOGRAM REPORT Name: JESSY KENT Room: [address] ADM IN .R.#: [id number] Admission: 05/25/17 Attend Phys: Kartik Denny Discharge: Date of : 32 Report #: [id number] THIS REPORT FOR: //name// [facility] ED Test Date: 2017-05-25 Test Time: 19:35:49 Pat Name: JESSY KENT Department: Room: [facility] Gender: M Wastewater Project Manager: BD : 1930 Requested By: Demetrio De Los Santos Order Number: [id number] MD: Joselito Baeza Measurements Intervals [place] Rate: 92 P: [place]: QRS: 74 QRSD: 103 T: 6 QT: 387 QTc: 479 Interpretive Statements 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
[2017-05-26 15:40] VITALS: BP 117/70
[2017-05-26 21:50] VITALS: BP 124/72
[2017-05-27 00:45] VITALS: BP 125/74
[2017-05-27 04:06] VITALS: BP 127/73
[2017-05-27 04:40] LABS: ABSOLUTE LYMPHOCYTES 0.4 thou/uL (0.8-5.3); ABSOLUTE MONOCYTES 0.4 thou/uL (0.0-1.2); ABSOLUTE NEUTROPHILS 11.8 thou/uL (1.6-8.1); HEMOGLOBIN 12.3 gm/dL (14.0-18.0); LYMPHOCYTES 2.8 %; MCH 31.3 pg (26.0-34.0); MCHC 33.3 g/dL (28.0-37.0); MCV 94.2 fL (80.0-100.0); MONOCYTES 3.4 %; MPV 8.8 fl. (7.2-11.1); NUCLEATED RBCS 0 /100WBC; PLATELET COUNT* 251 thou/uL (150-400); POLYS 93.8 %; RBC 3.92 mil/uL (4.50-6.00); RDW-CV 15.8 % (10.5-14.5); WBC 12.5 thou/uL (4.0-11.0)
[2017-05-27 04:44] LABS: CALCIUM 8.8 mg/dL (8.5-10.1); CREATININE 0.8 mg/dL (0.6-1.3); POTASSIUM 4.5 mmol/L (3.5-5.1)
[2017-05-27 08:00] VITALS: BP 115/56
[2017-05-27] MEDS ORDERED: PREDNISONE10 MG PO (13:21)
[2017-05-27] MEDS ORDERED: AZITHROMYCIN 2250 MG PO (13:23)
[2017-05-27] MEDS ORDERED: CEFUROXIME500 MG PO (13:24)
[2017-05-27 13:29] VITALS: BP 115/56
[2017-05-27 15:25] VITALS: BP 115/56
[2017-08-23] MEDS ORDERED: PACERONE 200 M200 M1 PO (13:36)
[2017-08-28] MEDS ORDERED: NORCO 5-325 TA1 EACH PO (14:53)
[2017-09-25] MEDS ORDERED: HYDROCODON-ACE1 EAC5 PO (14:37)
[2018-01-22] MEDS ORDERED: HYDROCODON-ACE1 EAC5 PO (08:23)
[2018-01-22] MEDS ORDERED: BUTRANS1 EAC1 TRANSDERM (15:18)
== END 2017-05-27 15:25 | disposition home or self-care (01) | DRG 194 ==
LOC: M.ERS 19:27 → M.TBA-ER 20:46 → M.ORTHSURG 23:07
PROVIDERS: Family Medicine; ADMIT Internal Medicine
DX: J15.9 Unspecified bacterial pneumonia (principal); I48.92 Unspecified atrial flutter; J44.1 Chronic obstructive pulmonary disease with (acute) exacerbation; J44.0 Chronic obstructive pulmonary disease with (acute) lower respiratory infection; R65.10 Systemic inflammatory response syndrome (SIRS) of non-infectious origin without acute organ dysfunction; I48.91 Unspecified atrial fibrillation; E03.9 Hypothyroidism, unspecified; I10 Essential (primary) hypertension; Z87.19 Personal history of other diseases of the digestive system; Z88.8 Allergy status to other drugs, medicaments and biological substances; Z72.89 Other problems related to lifestyle; Z79.01 Long term (current) use of anticoagulants; Z79.899 Other long term (current) drug therapy; Z79.82 Long term (current) use of aspirin; Z88.1 Allergy status to other antibiotic agents; Z95.2 Presence of prosthetic heart valve

== ENCOUNTER 2017-05-29 04:28 | Inpatient (IN) | payer MEDICARE, OTHER ==
[2017-05-29] VITALS (22 sets, daily range): BP systolic 107–165; BP diastolic 64–114
[~2017-05-29] VITALS: Ht 195.6 cm; Wt 106.6 kg
[~2017-05-29 04:28] MED LIST changes: +AZITHROMYCIN 2250 MG PO; +CEFUROXIME500 MG PO; +PREDNISONE10 MG PO
[2017-05-29] MEDS ORDERED: COUMADIN 3 MG TA3 M1 PO ×2 (04:44→04:45)
[2017-05-29 05:04] LABS: ABSOLUTE LYMPHOCYTES 1.1 thou/uL (0.8-5.3); ABSOLUTE MONOCYTES 0.9 thou/uL (0.0-1.2); BASOPHILS 0.2 %; EOSINOPHILS 0.1 %; HEMATOCRIT 39.8 % (42.0-52.0); HEMOGLOBIN 13.2 gm/dL (14.0-18.0); LYMPHOCYTES 10.7 %; MCH 31.1 pg (26.0-34.0); MCHC 33.1 g/dL (28.0-37.0); MCV 94.1 fL (80.0-100.0); MPV 8.6 fl. (7.2-11.1); NUCLEATED RBCS 0 /100WBC; PLATELET COUNT* 284 thou/uL (150-400); RBC 4.23 mil/uL (4.50-6.00); RDW-CV 15.9 % (10.5-14.5)
[2017-05-29 05:17] LABS: ANION GAP 8 mmol/L (7-16); BUN 31 mg/dL (7-18); CALCIUM 8.6 mg/dL (8.5-10.1); CHLORIDE 105 mmol/L (98-107); CO2 29 mmol/L (21-32); CREATININE 0.9 mg/dL (0.6-1.3); GLUCOSE 96 mg/dL (70-99); POTASSIUM 3.9 mmol/L (3.5-5.1); SODIUM 142 mmol/L (136-145)
[2017-05-29 05:19] LABS: INR 1.8; PROTIME 17.4 Seconds (9.20-11.50)
[2017-05-29 05:28] LABS: ALBUMIN 3.4 g/dL (3.4-5.0); ALKALINE PHOSPHATASE 69 U/L (46-116); MAGNESIUM 2.2 mg/dL (1.8-2.4); NT-PRO BRAIN NAT PEPTIDE 2550 pg/mL (<300); SGOT 87 U/L (15-37); SGPT 98 U/L (30-65); TOTAL BILIRUBIN 0.6 mg/dL (<0.1-1.0); TOTAL PROTEIN 7.5 g/dL (6.4-8.2); TROPONIN-I LEVEL <0.06 ng/mL (<0.06)
--- NOTE | 2017-05-29 09:32 | NUR ---
ASSUMED CARE OF PT THIS AM AROUND 07- BASIC COMBATANT SWIMMER IN PLACE ORDERED, TRACING A-FIB, CARDIZEM IN PLACE PRESCIBED AT 10ML/HR- UPON ASSESSMENT PT NOTED TO BE RESTING IN BED, WATCHING TV- PT A&O X4- CONTINENT OF BOWEL AND BLADDER- SBA WITH TRANSFERS FOR SAFETY- LCTA, DIMINISHED IN BASES- RESP EVEN AND UN-LABORED- VSS, O2 SAT 95% ON RA- ABDOMEN SOFT/ROUND/NON-TENDER, BS X4 QUADS- PT REPORTS LAST BM 05/27/17- IV NOTED TO RIGHT WRIST INTACT, CARDIZEM INFUSING PRESCIBED- 2+ BLE EDEAM NOTED- GOOD PO INTAKE NOTED WITH BREAKAST, CURRENTLY NPO AWAITING CARDIOLOGY PLANS- PT DENIES ANY C/O PAIN/DISCOMFORT AT THIS TIME- CALL LIGHT AND PERSONAL BELOONGINGS WITH IN REACH- HOURLY ROUNDS IN PLACE R/T SAFETY/NEEDS- ALL NEEDS MET AT THIS TIME-WCTM
--- NOTE | 2017-05-29 10:36 | NUR ---
CM ASSESSMENT: Pt is A&O. Resides at home with his . Normally active and independent. No DME. No hx of HH. Hx of cardiac rehab here at [facility]. No hx of SNF. Pt was just discharged from the hospital on Sunday with PNA. Stated that he started taking one of his new meds and notice his heart rate changed, at which time, Pt came to the ER. Cardiology following. Goal is to return home once medically stable. Following.
[2017-05-29 12:19] LABS: URINE BILIRUBIN NEGATIVE (Negative); URINE BLOOD NEGATIVE (Negative); URINE CLARITY CLEAR; URINE COLOR YELLOW; URINE GLUCOSE-RANDOM NEGATIVE (Negative); URINE KETONES NEGATIVE (Negative); URINE LEUKOCYTES-REFLEX NEGATIVE (Negative); URINE NITRITE-REFLEX NEGATIVE (Negative); URINE PROTEIN NEGATIVE (Negative); URINE SPECIFIC GRAVITY 1.025 (1.005-1.030); URINE UROBILINOGEN 0.2 E.U./dl (0.2-1.0)
--- NOTE | 2017-05-29 12:54 | EKG ---
[place] [address] ELECTROCARDIOGRAM REPORT Name: JESSY KENT Room: [address] ADM IN M.R.#: [id number] Admission: 05/29/17 Attend Phys: Kartik Denny Discharge: Date of : 32 Report #: [id number] THIS REPORT FOR: //name// [facility] ED Test Date: 2017-05-29 Test Time: 04:33:11 Pat Name: JESSY KENT Department: Room: [facility] Gender: M Children'S Minister: MARISA : 1930 Requested By: Jackie Naranjo Order Number: [id number] MD: Sean Huerta Measurements Intervals [place] Rate: 118 P: [place]: QRS: 83 QRSD: 100 T: -48 QT: 361 QTc: 506 Interpretive Statements Atrial fibrillation Borderline right axis deviation Repol abnrm suggests ischemia, diffuse leads Prolonged QT interval Compared to ECG 05/25/2017 19:35:49 rate increased Electronically Signed On 05-29-2017 12:54:28 INFORMATION MANAGEMENT MANAGER by Sean Huerta [email or web address] <ELECTRONICALLY SIGNED> By: Sean Huerta MD, [facility] 05/29/17 1254 0433 0433 Sean Huerta MD, [facility] /EPI
--- NOTE | 2017-05-29 16:33 | NUR ---
PT CURRENTLY RESTING IN BED, AT SIDE- HEM INSPECTOR IN PLACE ORDERED, TACING A-FIB-PO INTHIN STARTED THIS SHIFT AT 1022 WITH IV CARDAIZEM D/C'D INDICATED- PT OFF UNIT FOR CARDIAC CONVERSION FROM AROUND 1500 TILL 1625- REPORT SCOTTIE JOHNSON RN POST ATTEMPED CONVERSION WAS UNSUCESSFUL- PT REPORTED TO HAVE BEEN SHOCKED TIMES 3 WITH NO SUCESSESS- PT RETURNS TO UNIT STILL IN A FIB RATE 80'S- 100-VS 97.5 18 115/81 82 93% ON RA- UA COLLECTED THIS SHIFT AND SENT TO LAB AND RESULTED NEGATIVE-IV TO RIGHT WRIST CONTINUED, IN PLACE AND SL- DIET RE STARTED- PT DENIES ANY C/O PAIN/DISCOMFRT AT THIS TIME- CALL LIGHT AND PERSONAL BELONGINGS WITH IN REACH- ALL NEEDS MET AT THIS TIME-WCTM
--- NOTE | 2017-05-29 17:43 | TEE ---
[place] [address] TRANSESOPHAGEAL ECHOCARDIOGRAM Name: JESSY KENT Room: [address] IN [facility]#: [id number] Admission: 05/29/17 Attend Phys: Santiago Faust Discharge: Date of : 32 Date of Service: 05/29/17 1743 Report #: [id number] THIS REPORT FOR: //name// APPROVED REPORT Study performed: 05/29/2017 15:25:53 EXAM: Transesophageal Echocardiogram Patient Location: In-Patient Room #: [facility] Status: routine BSA: 2.42 HR: 105 bpm BP: 143/92 mmHg Rhythm: Atrial Fibrillation Other Information Study Quality: Good Indications Atrial Fibrillation Echo Enhancing Agent Indication: Rule out Shunt Agent(s) / Amount(s) Used: Agitated Saline 10 cc Procedure After obtaining informed consent, patient underwent transesophageal echo in the Flipping Machine Operator Holding. Type of Sedation : Conscious Sedation Sedation was administered by Odalys Snow RN. Sedation start time: 1525 Case end Time: 1550 Sedation was achieved intravenously with: Versed (4) Fentanyl (100) Transesophageal probe was inserted and advanced into esophagus without difficulty by Joselito Baeza MD, FACC. Echo enhancement indication: R/O Septal defect. Echo enhancement agent administered: Agitated Saline The LORNE was performed without complications. Synchronized Cardioversion acheived with 360 Joules after 3 attempt(s). Rhythm following Synchronized Cardioversion: Normal Sinus Rhythm Throughout the procedure, the blood pressure, pulse oximetry, cardiac rhythm, and rate were monitored. The patient tolerated the procedure without adverse effects. Recovery [address] [address] TRANSESOPHAGEAL ECHOCARDIOGRAM Name: JESSY KENT Room: [address] IN [facility]#: [id number] Admission: 05/29/17 Attend Phys: Santiago Faust Discharge: Date of : 32 Date of Service: 05/29/17 1743 Report #: [id number] from conscious sedation was uneventful and vital signs were stable. Left Ventricle The left ventricle is normal size. There is normal LV segmental wall motion. There is normal left ventricular wall thickness. Left ventricular systolic function is normal. LVEF is 55-60%. Right Ventricle The right ventricle is normal size. The right ventricular systolic function is normal. Atria Left atrium is moderately dilated. No thrombus is visualized in the left atrium or appendage. Interatrial septum is intact without evidence of ASD or PFO. Right atrium is moderately dilated. Aortic Valve The aortic valve is normal in structure. Bioprosthetic aortic valve is present. No aortic regurgitation is present. There is no aortic valvular stenosis. Mitral Valve The mitral valve is normal in structure. Mild to moderate mitral regurgitation. No evidence of mitral valve stenosis. Tricuspid Valve The tricuspid valve is normal in structure. Mild tricuspid regurgitation. Pulmonic Valve The pulmonary valve is normal in structure. There is no pulmonic valvular regurgitation. Great Vessels The aortic root is normal in size. Pericardium There is no pericardial effusion. <Conclusion> There is normal left ventricular wall thickness. Left ventricular systolic function is normal. LVEF is 55-60%. Left atrium is moderately dilated. No thrombus is visualized in the left [place] [address] TRANSESOPHAGEAL ECHOCARDIOGRAM Name: JESSY KENT Room: [address] IN [facility]#: [id number] Admission: 05/29/17 Attend Phys: Santiago Faust Discharge: Date of : 32 Date of Service: 05/29/171742 Report #: [id number] Right atrium is moderately dilated. Interatrial septum is intact without evidence of ASD or PFO. Bioprosthetic aortic valve is present. No aortic regurgitation is present. There is no aortic valvular stenosis. Mild to moderate mitral regurgitation. Mild tricuspid regurgitation. <ELECTRONICALLY SIGNED> By: Joselito Baeza MD, [facility] 05/29/171742 42 1743 Joselito Baeza MD, FACC /INF
[2017-05-30] VITALS: BP 119/81
--- NOTE | 2017-05-30 00:54 | NUR ---
RESTING COMFORTABLY WITHOUT COMPLAINTS. AFIB ON MONITOR WITH RATES BELOW 100. DENIES COMPLAINTS OF PAIN OR DISCOMFORT. NO SIGN OF DISTRESS. BED IN LOW POSITION, CALL LIGHT IN REACH. BED ALR ON. CONT. WITH PLAN OF CARE AT THIS TIME.
[2017-05-30 04:00] VITALS: BP 131/85
[2017-05-30 05:20] LABS: INR 1.7; PROTIME 16.1 Seconds (9.20-11.50)
[2017-05-30 05:24] LABS: ABSOLUTE EOSINOPHILS 0.1 thou/uL (0.0-0.7); ABSOLUTE LYMPHOCYTES 0.8 thou/uL (0.8-5.3); ABSOLUTE MONOCYTES 0.6 thou/uL (0.0-1.2); ABSOLUTE NEUTROPHILS 6.2 thou/uL (1.6-8.1); BASOPHILS 0.1 %; EOSINOPHILS 1.1 %; HEMATOCRIT 38.3 % (42.0-52.0); HEMOGLOBIN 12.6 gm/dL (14.0-18.0); LYMPHOCYTES 10.6 %; MCH 31.2 pg (26.0-34.0); MCV 94.6 fL (80.0-100.0); MONOCYTES 7.5 %; MPV 8.9 fl. (7.2-11.1); NUCLEATED RBCS 0 /100WBC; PLATELET COUNT* 228 thou/uL (150-400); POLYS 80.7 %; RBC 4.04 mil/uL (4.50-6.00); WBC 7.7 thou/uL (4.0-11.0)
[2017-05-30 05:28] LABS: CREATININE 0.8 mg/dL (0.6-1.3); POTASSIUM 4.2 mmol/L (3.5-5.1)
[2017-05-30 07:44] VITALS: BP 134/88
--- NOTE | 2017-05-30 08:32 | NUR ---
ASSUMED CARE OF PT THIS AM AROUND 0715- BOBBIN CLEANER IN PLACE ORDERED, TRACING A-FIB, RATE CONTROLLED- UPON ASSESSMENT PT NOTED TO BE RESTING IN BED, WATCHING TV- PT A&O X4- CONTINENT OF BOWEL AND BLADDER- SBA WITH TRANSFERS FOR SAFETY- LCTA, RESP EVEN AND UN-LABORED- VSS, O2 SAT 945 ON RA- NO C/O DYSPNEA NOTED- ABDOMEN SOFT/ROUND/NON-TENDER, BS X4 QUADS- PT REPORTS TO HAVE HAD BM THIS AM- 2+ BLE EDEMA NOTED, LEG ELEVTAION ENCOURAED, IV LASIX GIVEN THIS AM PRESCIBED- GOOD PO INTAKE NOTED WITH BREAKFAST THIS AM- PT DENIES ANY C/O PAIN/DISCOMFORT- CALL LIGHT AND PERSONAL BELONGINGS WITH IN REACH- HOURLY ROUNDS IN PLACE R/T SAFETY/NEEDS- ALL NEEDS MET AT THIS TIME-WCTM
--- NOTE | 2017-05-30 11:04 | CARD ---
[address] [address] CARDIAC CATH REPORT Name: JESSY KENT Room: [address] IN M.R.#: [id number] Admission: 05/29/17 Attend Phys: Kartik Denny Discharge: Date of : 32 Report #: [id number] THIS REPORT FOR: //name// CC: Joselito Faust INDICATION: Recurrent atrial fibrillation. PROCEDURE: DC cardioversion. PROCEDURE DESCRIPTION: After informed consent was obtained, the patient was brought to the cardiac holding area. He was given intravenous Versed 6 mg and IV fentanyl 125 for conscious sedation. Once the patient was adequately sedated, a LORNE was performed and documented no evidence of intracardiac thrombus. This will be reported separately. The patient was then cardioverted with 300 joules, but failed to maintain sinus rhythm. A second attempt at 360 joules again failed to maintain sinus rhythm. After a third attempt at 360 joules, the patient was finally converted to normal sinus rhythm. The patient tolerated the procedure well and without complication. The patient was returned to his room in a stable condition. IMPRESSION: 1. Persistent atrial fibrillation. 2. DC cardioversion with successful conversion to sinus rhythm after 3 attempts. <ELECTRONICALLY SIGNED> By: Joselito Baeza MD, [facility] 05/30/17 1104 1552 0020[facility] Bae[facility] MD, [facility] /nt
[2017-05-30 12:00] VITALS: BP 113/78
[2017-05-30 16:06] VITALS: BP 115/57
--- NOTE | 2017-05-30 17:07 | NUR ---
PT ISAIAH RESTING IN BED SIDE CHAIR, VISITING WITH FRIEND- BOOK REPAIRER IN PLACE ORDERED, TRACING A-FIB/RATE CONTROLED- IV TO RIGHT FA INTACT AND SL- AMIO PO CONTINUED PRESCIBED- CARDIOLOGY NOTED TO SIGNED OFF THIS AM WITH ORDERS TO SEE BANK RECONCILIATOR IN 1 WEEK- PT UP WALKING HALLWAYS WITH THIS SHIFT, TOLERATING WELL- PT DENIES ANY C/O PAIN/DISCOMFORT- GOOD PO INTAKE NOTED WITH MEALS- ALL NEEDS MET AT THIS TIME-WCTM
[2017-05-30 19:40] VITALS: BP 136/68
[2017-05-31 00:07] VITALS: BP 132/60
[2017-05-31 04:00] VITALS: BP 101/60
[2017-05-31 05:21] LABS: INR 1.5
--- NOTE | 2017-05-31 05:59 | NUR ---
A&O X4 CALM COOPERITVE. AFIB ON THE MONITOR. ADLIB. RA. VITALS WNL. HOURLY ROUNDING FOR SAFETY.
[2017-05-31 07:51] VITALS: BP 131/80
--- NOTE | 2017-05-31 08:58 | NUR ---
ASSUMED CARE OF PT THIS AM AROUND 0715- HEAD ATHLETIC TRAINER IN PLACE ORDERED, TRACING A-FIB, RATE CONTROLED- UPON ASSESSMENT PT NOTED TO BE RESTING IN BED- PT A&O X4- CONTINENT OF BOWEL AND BLADDER- UP AD-CARISA IN ROOM, STEADY GAIT NOTED- LCTA, RESP EVEN AND UN-LABORED- VSS, O2 SAT 945 ON RA- DYSPNEA NOTED ON EXERTION- ABDOMEN SOFT/ROUND/NON-TENDER, BS X QUADS- LAST BM REPORTED 05/30/17- 2+ PITTING BLE EDEMA NOTED, LEG ELEVATION ENCOURAGED- LASIX IV GIVEN PRESCIBED- GOOD PO INTAKE NOTED THIS AM WITH BREAKFAST- DENIES ANY C/O PAIN/DISCOMFORT- ALL NEEDS MET AT THIS TIME-WCTM
[2017-05-31 10:48] VITALS: BP 131/80
[2017-05-31 12:00] VITALS: BP 98/55
[2017-05-31] MEDS ORDERED: DOXYCYCLINE 10100 MG PO (12:53)
--- NOTE | 2017-05-31 14:27 | NUR ---
ORDERS RECIEVED THIS SHIFT FOR OKAY FOR PT TO BE D/C'D TO HOME THIS SHIFT PER - IV TO RIGHT WRIST D/C'D ALONG WITH ADJUNCT LECTURER PRIOR TO D/C- D/C TEACHING/EDUCATION/FOLLOW UP'S COMMUNICATED TO PT AND WITH VERBAL UNDERSTANDING RECIVED-ALL QUESTIONS AND CONCERNS ADDRESSED PRIOR TO D/C- WRITTEN EDUCATION ALONG WITH SCRITS PROVIDED TO PT AT TIME OF D/C- BELONGINGS PACKED AND ACCOUNTED FOR PER PT -PT CURRENTLY RESTING IN BED SIDE CHAIR, AT SIDE AWAITING RIDE FOR D/C- ALL NEEDS MET AT THIS TIME-WCTM
[2017-08-23] MEDS ORDERED: PACERONE 200 M200 M1 PO (13:36)
[2017-08-28] MEDS ORDERED: NORCO 5-325 TA1 EACH PO (14:53)
[2017-09-25] MEDS ORDERED: HYDROCODON-ACE1 EAC5 PO (14:37)
[2018-01-22] MEDS ORDERED: HYDROCODON-ACE1 EAC5 PO (08:23)
[2018-01-22] MEDS ORDERED: BUTRANS1 EAC1 TRANSDERM (15:18)
== END 2017-05-31 14:38 | disposition home or self-care (01) | DRG 308 ==
LOC: M.ERS 04:28 → M.TBA-ER 05:30 → M.2W 05:30
PROVIDERS: Emergency Medicine; Internal Medicine; ADMIT Internal Medicine
PROC: 5A2204Z Restoration of Cardiac Rhythm, Single (ICD-10-PCS; principal; 2017-05-29)
PROC: B24BZZ4 Ultrasonography of Heart with Aorta, Transesophageal (ICD-10-PCS; 2017-05-29)
DX: I48.1 Persistent atrial fibrillation (principal); I50.33 Acute on chronic diastolic (congestive) heart failure; I11.0 Hypertensive heart disease with heart failure; E78.5 Hyperlipidemia, unspecified; E03.9 Hypothyroidism, unspecified; J44.9 Chronic obstructive pulmonary disease, unspecified; Z95.2 Presence of prosthetic heart valve; Z88.1 Allergy status to other antibiotic agents; Z79.899 Other long term (current) drug therapy; Z88.8 Allergy status to other drugs, medicaments and biological substances; Z79.01 Long term (current) use of anticoagulants

== ENCOUNTER 2017-08-11 09:09 | Emergency (ER) | payer MEDICARE, OTHER ==
[~2017-08-11] VITALS: Ht 195.6 cm; Wt 106.6 kg
[~2017-08-11 09:09] MED LIST changes: +COUMADIN 3 MG TA3 M1 PO; +DOXYCYCLINE 10100 MG PO
[2017-08-11] MEDS ORDERED: NORCO 5-325 TA1 EACH PO (09:22)
[2017-08-11] MEDS ORDERED: CARISOPRODOL 3350 MG PO (09:22)
[2017-08-11] MEDS ORDERED: TESSALON PERLE100 MG PO (09:22)
[2017-08-11] MEDS ORDERED: LIDODERM1 EACH TRANSDERM (09:59)
[2017-08-11] MEDS ORDERED: PERCOCET PO (09:59)
[2017-08-11 10:31] VITALS: BP 138/59
[2017-08-23] MEDS ORDERED: PACERONE 200 M200 M1 PO (13:36)
[2017-08-28] MEDS ORDERED: NORCO 5-325 TA1 EACH PO (14:53)
[2017-09-25] MEDS ORDERED: HYDROCODON-ACE1 EAC5 PO (14:37)
[2018-01-22] MEDS ORDERED: HYDROCODON-ACE1 EAC5 PO (08:23)
[2018-01-22] MEDS ORDERED: BUTRANS1 EAC1 TRANSDERM (15:18)
== END 2017-08-11 10:32 | disposition home or self-care (01) ==
LOC: M.ERS 09:09
DX: S39.012A Strain of muscle, fascia and tendon of lower back, initial encounter (principal); I48.91 Unspecified atrial fibrillation; I10 Essential (primary) hypertension; E78.5 Hyperlipidemia, unspecified; Z88.1 Allergy status to other antibiotic agents; Z88.8 Allergy status to other drugs, medicaments and biological substances; X50.0XXA Overexertion from strenuous movement or load, initial encounter; Y93.89 Activity, other specified; Y92.89 Other specified places as the place of occurrence of the external cause; Y99.8 Other external cause status

== ENCOUNTER → 2017-08-17 | Outpatient (CLI) | payer MEDICARE, OTHER ==
[~2017-08-17] MED LIST changes: +BUTRANS1 EAC1 TRANSDERM; +CARISOPRODOL 3350 MG PO; +HYDROCODON-ACE1 EAC5 PO; +LIDODERM1 EACH TRANSDERM; +PACERONE 200 M200 M1 PO; +PERCOCET PO; +TESSALON PERLE100 MG PO
== END ==
LOC: M.RAD 08:36
DX: M47.896 Other spondylosis, lumbar region (principal); M41.86 Other forms of scoliosis, lumbar region

== ENCOUNTER → 2017-08-23 | Outpatient (CLI) | payer MEDICARE, OTHER ==
--- NOTE | 2017-09-05 14:05 | PAINCON ---
[address] [address] PAIN MANAGEMENT CONSULTATION Name: JESSY KENT Room: [facility] JERRY Curly#: [id number] Admission: 08/23/17 Attend Phys: Naren Lin MD Discharge: Date of : 31 Report #: [id number] THIS REPORT FOR: //name// CC: Joselito Lin DATE OF SERVICE: 08/23/2017 CHIEF COMPLAINT: "Pain in the back after lifting some concrete in my garage." HISTORY OF PRESENT ILLNESS: The patient is an 87-year-old gentleman who has been referred to the pain clinic for evaluation. The patient states that on 08/03/2017 he was working in his home. He had a bag of cement. He moved it. Since that time, he has had pain and discomfort, which has been quite problematic. It has been so intense, he has been unable to engage in activities of daily living. He is no longer able to lie in his bed flat. He is sleeping up in a chin. Pain is problematic with coughing. Movements can be quite debilitating. He denies any other trauma. Denies any bowel or bladder dysfunction. Denies any similar pain prior to this episode. Denies any significant pain radiating down into his legs. No problems with incontinence. He describes his pain as a 5-6 and rise to the level of 10 when he goes to move. He has been treatment with steroids. He is not sure that this provided any significant long-term benefit. He is on Coumadin, so he is not to take nonsteroidal anti-inflammatory medications. ALLERGIES: CIPRO, OMEPRAZOLE, LEVOFLOXACIN. CURRENT MEDICATIONS: Pacerone 200 mg, aspirin 81 mg, Soma 350 mg t.i.d., vitamin D3 400 units, glucosamine 500 mg, hydrocodone 5/325, Synthroid 75 mcg, Lidoderm patch, omega 3 fatty acids, Crestor 20 mg at bedtime, verapamil 240 mg, vitamin E 400 units, and Coumadin 3 mg Sunday, , Sunday, Sunday. PAST MEDICAL HISTORY: 1. Atrial fibrillation. 2. Hypertension. 3. Hyperlipidemia. 4. Aortic valve replacement. 5. COPD. PAST SURGICAL HISTORY: Aortic valve replacement, hernia repair x 3, left knee surgery, and fractured rib in 02/2017, and left knee replacement. REVIEW OF SYSTEMS: Questionnaire in the chart indicates 12-point review, decreased appetite, fatigue, weakness, wears glasses contacts, blurred vision, hearing loss, heart trouble, shortness of breath with walking, swelling in the ankles and feet, changes in bowel movements, frequent [place] [address] PAIN MANAGEMENT CONSULTATION Name: JESSY KENT [facility] [id number] Admission: 08/23/17 Attend Phys: Naren Lin MD Discharge: Date of : 31 Report #: [id number] force, straining, urination, and incontinence; joint pain, joint stiffness, weakness of muscles and joints, muscle pain, cramps, difficulty walking, memory loss and loss of consciousness. The patient indicates he is 87 years old. LABORATORY DATA: X-ray series of lumbar spine 6-views noted increasing low back pain at the L5-S1 level. Following lifting injury, lumbar alignment is anatomical. There are diffuse moderate degenerative changes involving the lumbar spine with mild levoscoliosis. There are multiple mobile small endplate deformities, which have a common appearance. Disk spaces are preserved. No acute fracture noted. SI joint appears intact. Nothing for acute fracture seen. PAIN CLINIC ASSESSMENT: 1. Osteoarthritis. The patient has some arthritic changes in his low back as per the x-ray of the lumbar spine. 2. Height 5 feet and 5 inches, weight 228 pounds, BMI is 27. 3. Vital signs: Blood pressure 139/68, heart rate 73, respiratory rate 16, room air saturation 98%, temperature 98. 4. Pain intensity 3 out 10 until moving then it can rise to a level of 10/10. 5. Fall risk. The patient has not fallen in the last 3 months. 6. Blood thinner. The patient is on a blood thinner. He is on Coumadin for aortic valve replacement. 7. History of hypertension. The patient is being treated for hypertension. 8. Risk assessment tool. 9. Functional assessment told him. 10. Recreational drug use. The patient denies use of recreational drugs. 11. Tobacco use. The patient denies use of tobacco at this juncture. 12. Alcohol: The patient denies use of alcohol. PHYSICAL EXAMINATION: GENERAL: The patient is well-developed white male. He appears his stated age. He is alert and oriented x 3. Affect is appropriate. Does complain of pain with movement. Speech is fluent. HEENT: Normocephalic, atraumatic. Extraocular eye muscles intact. Hearing generally within normal limits. Mucous membranes are moist. NECK: Without adenopathy. Good range of motion. LUNGS: Clear to auscultation without rales or wheezing. HEART: Regular rate. ABDOMEN: Nontender. MUSCULOSKELETAL: Lower extremity muscle strength is decreased secondary to the patient's lancinating pain in the low back area. Moves slowly from his chair to the examination table. Complains of pain and discomfort, which is intense. The patient stops and gasps. Complains of pain and discomfort, which is quite severe. Slowly moves from a sitting to a lying position on the bed. Palpation in the area of the left posterior superior iliac spine area causes some discomfort. Palpation in the muscles of the gluteus trey/[place] [address] PAIN MANAGEMENT CONSULTATION Name: WARRENEDY HIGGINSO Room: [facility] Curly#: [id number] Admission: 08/23/17 Attend Phys: Naren Lin MD Discharge: Date of : 31 Report #: [id number] can reproduce a significant component of the patient's pain. He is not having pain radiating down into his legs. Difficult for the patient to perform the Channing's maneuver. Complains of some pain and discomfort in his low back area, but not specific to the SI joint letting his leg fly hang in the dependent position. Left and right did not really radiated into the SI joints. Does complain of some generalized pain across his low back area. Palpation in the area of the posterior superior iliac spine, while the patient was sitting and leaning forward as tying his shoes did reproduce some pain and discomfort again in that same gluteus trey/latissimus dorsi area. IMPRESSION: 1. Myofascial pain, left posterior superior iliac spine/gluteus trey/latissimus dorsi area. 2. Hypertension. 3. Atrial fibrillation with chronic anticoagulation, aortic valve replacement. 4. Hyperlipidemia. RECOMMENDATIONS: We discussed treatment options with the patient. He will contact his cardiac doctors. If he is able to decrease his Coumadin to a level of 1.2 or thereabout. We will consider a trigger point injection to the affected area. Risks and benefits of injecting the patients on Coumadin was discussed. At this juncture, he will check with his doctor and when he returns to the pain clinic, we will then proceed with a trigger point injection to the affected area. Hopefully, this will help quell the patient's pain and give him some relief. We would like to thank you for letting us participate in his care. We hope he continues to improve. <ELECTRONICALLY SIGNED> By: Naren Lin MD 09/05/17 1405 1732 0412N. Wang Lin MD /[facility]
== END ==
LOC: M.PC 00:52
DX: I10 Essential (primary) hypertension (principal); I48.91 Unspecified atrial fibrillation; E78.5 Hyperlipidemia, unspecified; M79.1 Myalgia; J44.9 Chronic obstructive pulmonary disease, unspecified; Z95.2 Presence of prosthetic heart valve

== ENCOUNTER → 2017-08-28 | Outpatient (CLI) | payer MEDICARE, OTHER ==
--- NOTE | 2017-09-05 14:05 | PAINCON ---
[address] [address] PAIN MANAGEMENT CONSULTATION Name: JESSY KENT Room: [facility] JERRY Rawls#: [id number] Admission: 08/28/17 Attend Phys: Naren Lin MD Discharge: Date of : 31 Report #: [id number] THIS REPORT FOR: //name// CC: Joselito Lin DATE OF SERVICE: 08/28/2017 FOLLOWUP COMPLAINT: Here for an injection in the low back. FOLLOWUP HISTORY: The patient is an 87-year-old gentleman who has been referred to the pain clinic before evaluation. The patient has had pain and discomfort, which has been problematic since about 08/03/2017. States that he was working in his home. There was a bag of cement. He elected to move it. After lifting the bag of cement and repositioning in the room, noted worsening of pain and discomfort. He has been experiencing what he describes as severe pain in his low back. Activities of daily living have become more problematic. Coughing is painful. The patient notes that when he goes from a sitting to a standing position or vice versa that he can notice worsening of pain and discomfort. He denies any significant pain at this juncture radiating down his legs, but he does note areas in his back where he can place his finger, which reproduced the pain and discomfort. He did notice one episode since we saw him last. We had some pain that radiated down the lateral side of his leg, the lateral portion of his thigh. He rates his pain as a 4 during the course of day. He finds that hydrocodone is beneficial and would like to continue it at this juncture. ALLERGIES: CIPRO, OMEPRAZOLE, LEVOFLOXACIN. CURRENT MEDICATIONS: Pacerone 200 mg, aspirin 81 mg, Soma 350 mg t.i.d., vitamin D 400 International Units, glucosamine 500 mg, hydrocodone 5/325, Synthroid 75 mcg, and Lidoderm patch, omega 3 fatty acids, Crestor 20 mg at bedtime, verapamil 240 mg, vitamin E 400 units, Coumadin 3 mg Sunday, , Sunday, Sunday. PAIN CLINIC ASSESSMENT: 1. Osteoarthritis, the patient has some osteoarthritic changes in his low back per x-ray of the lumbar spine. 2. Height 6 feet 5 inches, weight 228 pounds, BMI is 27. 3. Vital signs: Blood pressure 136/72, heart rate 67, respiratory rate 16, room air saturation 95%, temperature 98.1. 4. Pain intensity 10. 5. Fall risk. The patient has not fallen in the last 3 months. 6. Blood thinner. The patient is on Coumadin and stopped it. He had an INR of 1.2 at the beginning of our procedure. 7. History of hypertension. The patient is being treated for hypertension. 8. [place] [address] PAIN MANAGEMENT CONSULTATION Name: JESSY KENT [id number] Admission: 08/28/17 Attend Phys: Naren Lin MD Discharge: Date of : 31 Report #: [id number] 9. Functional assessment tool. 10. Recreational drug use. The patient denies any use of recreational drugs. 11. Tobacco: The patient denies use of tobacco. 12. Alcohol: The patient denies use of alcohol. PHYSICAL EXAMINATION: GENERAL: The patient is a well-developed white male. He appears his stated age. His affect is appropriate. Speech is fluent. HEENT: Normocephalic, atraumatic. Extraocular eye muscles intact. Hearing generally within normal limits. Mucous membranes are moist. NECK: Without adenopathy. Good range of motion. LUNGS: Clear to auscultation without rales or wheezing. HEART: Regular rate. S1, S2. ABDOMEN: Nontender. MUSCULOSKELETAL: Lower extremity muscle strength is judged to be generally 5/5 for the major muscle groups. Notes some worsening of pain and decreased muscle strength when the patient gets the shooting pain in the low back area. Use his hands to arise from a sitting to a standing position. Still complains of pain and discomfort in the left low back area near the posterior superior iliac spine area. Palpation in the area of the posterior superior iliac spine/gluteus trey/latissimus dorsi, reproduce pain and discomfort. IMPRESSION: 1. Myofascial pain, left posterior superior iliac spine/gluteus trey/latissimus dorsi area. 2. Hypertension. 3. Atrial fibrillation with chronic anticoagulation, aortic valve replacement. 4. Hyperlipidemia. RECOMMENDATIONS: We discussed treatment options with the patient. Risks and benefits of a trigger point injection were discussed. The patient has stopped his Coumadin. He does monitor his Coumadin at home. Today it was 1.2. He brought in his log, which corroborated his statement of coagulation. We discussed the possible treatment, which includes trigger point injections. Possibility of infection, increased muscle soreness, no improvement in pain, worsening of pain were discussed. The patient elects to proceed. PROCEDURE NOTE: The patient was placed in the sitting position. His back was sterilely prepped with a chlorhexidine solution and allowed to dry on the left posterior buttocks area near the gluteus trey/levator scapula and posterior superior iliac spine. Palpation in these areas revealed a component of the patient's pain. A 25-gauge needle was then advanced into the area of the trigger point. A total of 10 mL of 0.5% bupivacaine and 80 mg Depo-Medrol was injected. The patient tolerated the procedure well. There were no complications. He remained in the pain clinic for an appropriate amount of time. He will follow up in the future. A script for hydrocodone 5 [place] [address] PAIN MANAGEMENT CONSULTATION Name: JESSY KENT Room: [facility]#: [id number] Admission: 08/28/17 Attend Phys: Naren Lin MD Discharge: Date of : 31 Report #: [id number] one p.o. q.6 hours p.r.n., total of 75 has been written. The patient will call us if he has any problems with his medications. We would like to thank you for letting us participate in his care. He will restart his Coumadin tonight. <ELECTRONICALLY SIGNED> By: Naren Lin MD 09/05/17 1405 1522 [id number]. Wang Lin MD /nt
== END | disposition home or self-care (01) ==
LOC: M.PC 02:00
DX: M79.1 Myalgia (principal); I10 Essential (primary) hypertension; I48.91 Unspecified atrial fibrillation; Z79.01 Long term (current) use of anticoagulants; E78.5 Hyperlipidemia, unspecified; Z88.8 Allergy status to other drugs, medicaments and biological substances; Z79.899 Other long term (current) drug therapy

== ENCOUNTER → 2017-09-06 | Outpatient (CLI) | payer MEDICARE, OTHER ==
--- NOTE | 2017-09-20 15:18 | PAINCON ---
[address] [address] PAIN MANAGEMENT CONSULTATION Name: JESSY KENT Room: [facility] JERRY Rawls#: [id number] Admission: 09/06/17 Attend Phys: Naren Lin MD Discharge: Date of : 31 Report #: [id number] THIS REPORT FOR: //name// CC: Joselito Lin DATE OF SERVICE: 09/06/2017 FOLLOWUP COMPLAINT: The injection in the back that we did last time has been really helpful. That pain is about gone. I am having pain down in my left hip. FOLLOWUP HISTORY: The patient is an 87-year-old gentleman who has been followed in the pain clinic because of pain and discomfort in his back. As you recall, he was lifting a heavy item on 08/03/2017. It was a heavy bag of cement. He chose to move it. After lifting the bag and repositioning it, he noticed some worsening of pain in his low back. Pain was quite problematic and is severe. The patient was sleeping in a recliner because of the severity of the pain. He underwent a trigger point injection at the last visit. He notes that that pain has pretty much resolved and is less problematic. At this juncture, he notes pain and discomfort involving his left hip. Pain is on the outer surface of his left hip. Pushing in this area can reproduce pain. He rates his pain as a 3-4. He finds that hydrocodone is somewhat helpful. He has stopped taking his Coumadin. His desire is to undergo an injection today. He has not taken his Coumadin since 08/22/2017. ALLERGIES: CIPROFLOXACIN, LEVOFLOXACIN, OMEPRAZOLE, ZOCOR. CURRENT MEDICATIONS: Pacerone 200 mg, aspirin 81 mg, Soma 350 mg 1 p.o. t.i.d., vitamin D 400 international units, glucosamine 500 mg, hydrocodone 5/325, Synthroid 75 mcg, Lidoderm patch, omega 3 fatty acids, Crestor 20 mg at bedtime, verapamil 240 mg, vitamin E 400 units, Coumadin 3 mg Sunday, , Sunday and Sunday. PAIN CLINIC ASSESSMENT: 1. 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 X-ray of his lumbar spine support that. 2. Height 6 feet 5 inches, weight 220 pounds, BMI is 26. 3. Vital signs: Blood pressure 129/59, heart rate 71, respiratory rate 16, room air saturation 97%, temperature 97.8. 4. Pain intensity 3-4/10. 5. Fall risk. The patient has not fallen in the last 3 months. 6. Blood thinner. The patient is on a blood thinning agent and takes Coumadin. We would recommend that he resume use of his Coumadin. 7. History of hypertension. The patient is being treated for hypertension. 8. Risk assessment tool. 9. [place] [address] PAIN MANAGEMENT CONSULTATION Name: JESSY KENT [id number] Admission: 09/06/17 Attend Phys: Naren Lin MD Discharge: Date of : 31 Report #: [id number] 10. Recreational drug use. The patient denies use of any recreational drug use. 11. Tobacco: The patient denies use of tobacco. 12. Alcohol: The patient denies use of alcohol. PHYSICAL EXAMINATION: GENERAL: The patient is a well-developed white male. Appears stated age. He is alert and oriented x 3. His affect is appropriate. HEENT: Normocephalic, atraumatic. Extraocular muscles intact. Sclerae nonicteric. Hearing within normal limits. Mucous membranes are moist. NECK: Without adenopathy. Good range of motion. LUNGS: Clear to auscultation without rales or wheezing. HEART: Regular rate. S1, S2. ABDOMEN: Nontender. MUSCULOSKELETAL: Lower extremity strength is judged to be 5/5 for the major muscle groups. He notes some pain and some discomfort in the left greater trochanteric area. Palpation of the left greater trochanteric area causes reproduction of the patient's pain. He notes that the pain in the lower portion of his back in the mid posterior superior iliac spine area has improved. IMPRESSION: 1. Myofascial pain improved after iliac/gluteus trey injection. 2. Pain, left greater trochanteric area - trochanteric bursitis. 3. Hypertension. 4. Atrial fibrillation with chronic anticoagulation, aortic valve replacement. 5. Hyperlipidemia. RECOMMENDATIONS: We discussed treatment options with the patient. Risks and benefits of trigger point injection were discussed. The patient's back feels like it is improved. He does have pain and discomfort in the left greater trochanteric area. We discussed a trochanteric injection. He feels that given the pain that he is experiencing and reproduction of his pain during the interview that this is the area that is causing most of his discomfort and would like to proceed with an injection. Possible complication of the procedure, which could include infection, increased muscle soreness, worsening of pain, no improvement in pain, and infection were reviewed. The patient elects to proceed. PROCEDURE NOTE: The patient was placed in the right lateral decubitus position. His left hip area was sterilely prepped with a chlorhexidine solution and allowed to dry. The left greater trochanteric area was palpated. We found the area of discomfort. A 25-gauge needle was then advanced into the area. A skin wheal was placed. A 25-gauge spinal needle was then advanced to the area of discomfort. A total of 80 mg Depo-Medrol, 40 mg triamcinolone and 10 mL of 0.25% bupivacaine was injected. The patient tolerated the procedure well. There were no complications. A total of 26 seconds [place] [address] PAIN MANAGEMENT CONSULTATION Name: JESSY KENT Room: [facility]#: [id number] Admission: 09/06/17 Attend Phys: Naren Lin MD Discharge: Date of : 31 Report #: [id number] Pain decreased to 1 at the time of discharge. We would like to thank you for letting us participate in his care. He will follow up in the future should he need in the future. <ELECTRONICALLY SIGNED> By: Naren Lin MD 09/20/17 1518 1513 0034N. Wang Lin MD /nt
== END | disposition home or self-care (01) ==
LOC: M.PC 01:24
DX: M70.62 Trochanteric bursitis, left hip (principal); M79.1 Myalgia; I10 Essential (primary) hypertension; E78.5 Hyperlipidemia, unspecified; I48.91 Unspecified atrial fibrillation; J44.1 Chronic obstructive pulmonary disease with (acute) exacerbation; Z79.01 Long term (current) use of anticoagulants; Z95.2 Presence of prosthetic heart valve; Z88.8 Allergy status to other drugs, medicaments and biological substances; Z79.891 Long term (current) use of opiate analgesic; Z79.899 Other long term (current) drug therapy; Z98.890 Other specified postprocedural states; Z79.82 Long term (current) use of aspirin

== ENCOUNTER → 2017-09-18 | Outpatient (CLI) | payer MEDICARE, OTHER ==
--- NOTE | 2017-09-20 15:18 | PAINCON ---
[address] [address] PAIN MANAGEMENT CONSULTATION Name: EDY KENTO Room: [facility] JERRY Rawls#: [id number] Admission: 09/18/17 Attend Phys: Naren Lin MD Discharge: Date of : 31 Report #: [id number] THIS REPORT FOR: //name// CC: Joselito Lin DATE OF SERVICE: 09/18/2017 FOLLOWUP HISTORY: "Pain in my hip is better, but I am still having pain across my back." FOLLOWUP HISTORY: The patient is an 87-year-old gentleman who has been seen in the pain clinic. He continues to have pain and discomfort in the low back area. As you may recall, he is an 87-year-old gentleman who decided to move a heavy object in his house. After repositioning the cement bag he noticed pain and discomfort in his back. It continues to be problematic. He continues to have pain, which is severe enough that he is unable to get into bed to sleep. He has been sleeping in the recliner. He feels that the pain in the middle of his back was helpful. He underwent trigger point injections for that area. Noted some pain and discomfort in the left greater trochanteric area at the last visit and underwent an injection in the area of the bursa at that visit. He notes that pain has improved, still has some pain across the lower portion of his back, down into the area of his hip joints. He has difficulty going from a sitting to a standing position. It has noted that his weight has changed. He has lost 13 pounds. The patient states that he has no appetite. He complains of some numbness and tingling down into his right calf. This may increase as the day progresses. Finds that Oakley can be somewhat helpful. He has not used the Soma. He does not take Soma and Oakley at the same time. He is concerned about getting addicted to medications. Rates his pain as a 2 when sitting, rises significantly higher when he gets up to start to ambulate. ALLERGIES: CIPROFLOXACIN, LEVOFLOXACIN, OMEPRAZOLE, AND ZOCOR. MEDICATIONS: Pacerone, aspirin 81 mg, Soma 350 mg 1 p.o. t.i.d. takes it episodically, vitamin D 400 international units, glucosamine 500 mg, hydrocodone 5/325, Synthroid 75 mcg and Lidoderm patch, omega fatty acids, Crestor 20 mg at bedtime, verapamil 240 mg, vitamin E 400 units, Coumadin 3 mg Tuesdays, , Saturdays and Sundays. PAIN CLINIC ASSESSMENT: 1. 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 X-ray lumbar spine supports that. 2. Height 6 feet 5 inches, weight 215 pounds, BMI is 25.4. 3. Vital signs: Blood pressure 137/80, heart rate 75, respiratory rate 16, [facility] [address] [place] [address] PAIN MANAGEMENT CONSULTATION Name: JESSY KENT Room: [facility] Curly#: [id number] Admission: 09/18/17 Attend Phys: Naren Lin MD Discharge: Date of : 31 Report #: [id number] room air saturation 95%, temperature 98.6. 4. Pain intensity 2/10 when sitting, increases to a higher level with activity. 5. Fall risk. The patient has not fallen in the last 3 months. 6. Blood thinner. The patient is on Coumadin. He will stop this medication in preparation for a SI joint injection left and right at the next visit. 7. History of hypertension. 8. Risk assessment tool. 9. Functional assessment tool. 10. Recreational drug use. The patient denies use of recreational drugs. 11. Tobacco: The patient denies use of tobacco. 12. Alcohol: The patient denies use of alcohol. PHYSICAL EXAMINATION: GENERAL: The patient is a well-developed white male. He appears his stated age. He is alert and oriented x 3. His affect is appropriate. HEENT: Normocephalic, atraumatic. Extraocular eye muscles intact. Sclerae nonicteric. Hearing within normal limits. Mucous membranes are moist. NECK: Without adenopathy. Good range of motion. LUNGS: Clear to auscultation without rales or rhonchi. HEART: S1, S2 regular rate and rhythm. ABDOMEN: Nontender. MUSCULOSKELETAL: Lower extremity strength is judged to be 4+/5 for the major muscle groups. The patient uses his arms to push himself from a sitting to a standing position. Moves gingerly. Palpation of the back and trochanteric areas reproduce some pain and discomfort. The patient has complained of pain and discomfort when sitting and rocking forward that pain and discomfort is in his hip areas, feels there is motion in this area. Channing's sign is positive. IMPRESSION: 1. Pain in the SI joint areas bilaterally. 2. Myofascial pain improved with iliac/gluteus trey injection. 3. Pain in the greater trochanteric area, which has improved since injecting the greater trochanteric area. 4. Hypertension. 5. Atrial fibrillation with chronic anticoagulation, aortic valve replacement history. 6. Hyperlipidemia. RECOMMENDATIONS: We discussed treatment options with the patient. They include injecting the affected SI joint areas with local anesthetic and steroid. The patient still is having pain and discomfort when difficulty ambulating. He has difficulty sleeping in his bed because it is too painful to get up. He sleeps in the recliner because it enables him to go from a sitting to a standing position with less discomfort. The patient will stop his Coumadin. He will then return to the pain clinic and [place] [address] PAIN MANAGEMENT CONSULTATION Name: JESSY KENT Room: [facility]#: [id number] Admission: 09/18/17 Attend Phys: Naren Lin MD Discharge: Date of : 31 Report #: [id number] We would like to thank you for letting us participate in his care. Hopefully, the patient continues to note improvement. <ELECTRONICALLY SIGNED> By: Naren Lin MD 09/20/17 1518 1302 0005Naren Lin MD /nt
== END ==
LOC: M.PC 05:00
DX: M53.3 Sacrococcygeal disorders, not elsewhere classified (principal); I10 Essential (primary) hypertension; I48.91 Unspecified atrial fibrillation; E78.5 Hyperlipidemia, unspecified; M79.1 Myalgia

== ENCOUNTER → 2017-09-25 | Outpatient (CLI) | payer MEDICARE, OTHER ==
--- NOTE | 2017-09-27 08:42 | PAINCON ---
[address] [address] PAIN MANAGEMENT CONSULTATION Name: JESSY KENT Room: [facility] NYAAmie Rawls#: [id number] Admission: 09/25/17 Attend Phys: Naren Lin MD Discharge: Date of : 31 Report #: [id number] THIS REPORT FOR: //name// CC: Joselito Lin DATE OF SERVICE: 09/25/2017 FOLLOWUP COMPLAINT: "Still have pain in my low back and I am still sleeping in the recliner." FOLLOWUP HISTORY: The patient is an 87-year-old gentleman who has been seen in the pain clinic. As you may recall, he was cleaning his garage area. There was a bag of cement. He elected to move it. He has noted pain and discomfort since that time. He rates his pain as a 1-2 while sitting and it rises to an 8-9 with standing and activity. Finds it is quite difficult to move. He has been sleeping in his recliner. He has stopped taking his Coumadin. His INR is 1.1 today. He would like to consider treatment. The patient is using a walker. Describes his pain is excruciating when he is active. Notes it is quite difficult to go from a lying to a standing position. Has some discomfort going from a sitting to a standing position. Notes that the pain that he had in the bursa has improved. It was felt that the shot for the bursitis was helpful in that area. Has noted some improvement in the pain after injection of the paraspinous muscles, but still feels overall that things are still problematic and have kept him from staying engaged in life. It has found that hydrocodone 5/325 taken about 1 q. 6 hours has been helpful. He feels that the medication is wearing off prematurely and he is still less active. He has continued to take the Soma for muscle spasms on a p.r.n. basis. The patient is unable to take any other nonsteroidal anti-inflammatory medications given that he is on Coumadin. ALLERGIES: CIPROFLOXACIN, LEVOFLOXACIN, OMEPRAZOLE, and ZOCOR. MEDICATIONS: Pacerone, aspirin 81 mg, Soma 350 mg 1 p.o. t.i.d., taken p.r.n., vitamin D 400 international units, glucosamine 500 mg, hydrocodone 5/325, Synthroid 75 mcg, Lidoderm patch, omega fatty acids, Crestor 20 mg at bedtime, verapamil 240 mg, vitamin E 400 units, Coumadin 3 mg Sunday, , Sunday and Sunday. PAIN CLINIC ASSESSMENT: 1. 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 X-ray lumbar spine supports these findings. 2. Height 6 feet 5 inches, weight 215 pounds, BMI is 25. 3. Vital signs: Blood pressure 137/80, heart rate 75, respiratory rate 16, room air saturation is 96%. 4. Pain intensity 2, while sitting, rises to an 8-9 [place] [address] PAIN MANAGEMENT CONSULTATION Name: YOLIJESSY [id number] Admission: 09/25/17 Attend Phys: Naren Lin MD Discharge: Date of : 31 Report #: [id number] 5. Fall risk. The patient has not fallen in the last 3 months. 6. Blood thinner. The patient is on Coumadin. He has stopped his medication and thought of undergoing a SI joint injection today. 7. History of hypertension. 8. Risk assessment tool. 9. Functional assessment tool. 10. Recreational drugs use. The patient denies use of recreational drugs. 11. Tobacco: The patient denies use of tobacco. 12. Alcohol: The patient denies use of alcohol. PHYSICAL EXAMINATION: GENERAL: The patient is well developed white male. He appears his stated age. He is alert and oriented x 3. His affect is appropriate. Does seem to be having significant amounts of pain with facial grimacing during the interview. HEENT: Normocephalic, atraumatic. Extraocular eye muscles intact. Sclerae nonicteric. Hearing within normal limits. Mucous membranes are moist. NECK: Without adenopathy. Good range of motion. LUNGS: Clear to auscultation without rales or rhonchi. HEART: S1, S2, regular rate and rhythm. ABDOMEN: Nontender. MUSCULOSKELETAL: The patient has pain and discomfort in the lower portion of his back and muscle strength is judged to be 4/5 for the major muscle groups in the lower extremity. The patient notes that his limbs start to give way because of the pain and intensity in the lower portion of his back with changes at the positioning such as walking. He moves in a slow and calculated way. Uses a rolling walker. The patient notes pain and discomfort in his low back area. When placed in the left and right lateral position. Notes increased pain in the SI joint areas with posterior examination of pain with external compression on the iliac areas bilaterally. Notes pain and discomfort that radiates down into the contralateral SI joint. Channing's sign is positive. IMPRESSION: 1. Pain in the SI joints bilaterally. 2. Myofascial pain improves with iliac/gluteus trey injection, but still problematic. 3. Pain in the greater trochanteric area improved after injecting the greater trochanteric area. 4. Hypertension. 5. Atrial fibrillation with chronic anticoagulation with aortic valve replacement history. 6. Hyperlipidemia. RECOMMENDATIONS: We discussed treatment options with the patient and his . Risks and benefits of a SI joint injection were discussed. They include but are not limited to infection, no improvement worsening of pain and numbness. Should the local anesthetic involve both the sciatic nerves. [place] [address] PAIN MANAGEMENT CONSULTATION Name: JESSY KENT Room: [facility]#: [id number] Admission: 09/25/17 Attend Phys: Naren Lin MD Discharge: Date of : 31 Report #: [id number] PROCEDURE NOTE: The patient was assisted in getting on the examination table. There was significant amount of grimacing and phonation during this portion. Fluoroscopy used in the anterior, posterior, evaluation of the SI joint was used on the left as well as on the right side. A 20-gauge spinal needle was advanced into the SI joint on the left. A total of 8 mL of 0.25% bupivacaine and 80 mg Depo-Medrol was injected into the SI joint on the left. A total of 80 mg of steroid was injected/Depo-Medrol in the right SI joint with 8 mL of 0.25% bupivacaine. The patient tolerated the procedure well. There were no complications. He will be given a script to go to physical therapy. He will follow up in the future as needed. We would like to thank you for letting us participate in his care. We hope he continues to improve. <ELECTRONICALLY SIGNED> By: Naren Lin MD 09/27/17 0842 1515 0023N. Wang Lin MD /nt
== END | disposition home or self-care (01) ==
LOC: M.PC 05:33
DX: M53.3 Sacrococcygeal disorders, not elsewhere classified (principal); Z88.8 Allergy status to other drugs, medicaments and biological substances; Z79.899 Other long term (current) drug therapy; I10 Essential (primary) hypertension; I48.91 Unspecified atrial fibrillation; Z79.01 Long term (current) use of anticoagulants; E78.5 Hyperlipidemia, unspecified
CPT/HCPCS: G0260

== ENCOUNTER 2017-10-22 11:18 | Emergency (ER) | payer MEDICARE, OTHER ==
[~2017-10-22] VITALS: Ht 195.6 cm; Wt 95.3 kg
[~2017-10-22 11:18] MED LIST changes: -BUTRANS1 EAC1 TRANSDERM
[2017-10-22 12:12] LABS: ABSOLUTE BASOPHILS 0.1 thou/uL (0.0-0.2); ABSOLUTE EOSINOPHILS 0.1 thou/uL (0.0-0.7); ABSOLUTE LYMPHOCYTES 0.7 thou/uL (0.8-5.3); ABSOLUTE MONOCYTES 0.5 thou/uL (0.0-1.2); ABSOLUTE NEUTROPHILS 4.7 thou/uL (1.6-8.1); BASOPHILS 0.9 %; EOSINOPHILS 1.5 %; HEMATOCRIT 37.6 % (42.0-52.0); HEMOGLOBIN 12.4 gm/dL (14.0-18.0); LYMPHOCYTES 11.2 %; MCH 31.8 pg (26.0-34.0); MCHC 33.1 g/dL (28.0-37.0); MCV 96.3 fL (80.0-100.0); MONOCYTES 8.6 %; MPV 7.6 fl. (7.2-11.1); NUCLEATED RBCS 0 /100WBC; PLATELET COUNT* 257 thou/uL (150-400); POLYS 77.8 %; RBC 3.91 mil/uL (4.50-6.00); RDW-CV 15.4 % (10.5-14.5)
[2017-10-22 12:25] LABS: CALCIUM 8.8 mg/dL (8.5-10.1); CREATININE 0.9 mg/dL (0.6-1.3); POTASSIUM 3.9 mmol/L (3.5-5.1)
[2017-10-22 12:29] LABS: ALBUMIN 2.9 g/dL (3.4-5.0); TOTAL BILIRUBIN 0.3 mg/dL (<0.1-1.0); TOTAL PROTEIN 7.1 g/dL (6.4-8.2)
[2017-10-22 16:52] LABS: URINE BILIRUBIN NEGATIVE (Negative); URINE BLOOD NEGATIVE (Negative); URINE CLARITY CLEAR; URINE COLOR YELLOW; URINE GLUCOSE-RANDOM NEGATIVE (Negative); URINE KETONES NEGATIVE (Negative); URINE LEUKOCYTES-REFLEX NEGATIVE (Negative); URINE NITRITE-REFLEX NEGATIVE (Negative); URINE PROTEIN NEGATIVE (Negative); URINE SPECIFIC GRAVITY 1.015 (1.005-1.030); URINE UROBILINOGEN 0.2 E.U./dl (0.2-1.0)
[2017-10-22 18:45] VITALS: BP 140/70
[2018-01-22] MEDS ORDERED: HYDROCODON-ACE1 EAC5 PO (08:23)
[2018-01-22] MEDS ORDERED: BUTRANS1 EAC1 TRANSDERM (15:18)
== END 2017-10-22 18:46 | disposition home or self-care (01) ==
LOC: M.ERS 11:18
PROVIDERS: Personal Emergency Response Attendant
DX: S32.030A Wedge compression fracture of third lumbar vertebra, initial encounter for closed fracture (principal); S32.040A Wedge compression fracture of fourth lumbar vertebra, initial encounter for closed fracture; S32.050A Wedge compression fracture of fifth lumbar vertebra, initial encounter for closed fracture; I48.91 Unspecified atrial fibrillation; I10 Essential (primary) hypertension; E78.5 Hyperlipidemia, unspecified; Z88.1 Allergy status to other antibiotic agents; Z88.8 Allergy status to other drugs, medicaments and biological substances; W18.39XA Other fall on same level, initial encounter; Y93.89 Activity, other specified; Y92.89 Other specified places as the place of occurrence of the external cause; Y99.8 Other external cause status

== ENCOUNTER → 2017-10-25 | Outpatient (CLI) | payer MEDICARE, OTHER ==
[~2017-10-25] VITALS: Ht 195.6 cm; Wt 95.3 kg
[~2017-10-25] MED LIST changes: +BUTRANS1 EAC1 TRANSDERM
[2017-10-25 07:50] VITALS: BP 117/61
[2017-10-25 08:24] LABS: HEMATOCRIT 41.2 % (42.0-52.0); HEMOGLOBIN 13.6 gm/dL (14.0-18.0); MCH 31.7 pg (26.0-34.0); MCHC 32.9 g/dL (28.0-37.0); MCV 96.3 fL (80.0-100.0); RBC 4.28 mil/uL (4.50-6.00); RDW-CV 15.7 % (10.5-14.5); WBC 6.1 thou/uL (4.0-11.0)
[2017-10-25 08:32] LABS: CALCIUM 8.9 mg/dL (8.5-10.1); CREATININE 0.8 mg/dL (0.6-1.3); POTASSIUM 3.7 mmol/L (3.5-5.1)
[2017-10-25 08:34] LABS: APTT 24.9 Seconds (25.0-31.3); INR 1.3; PROTIME 12.9 Seconds (9.20-11.50)
[2017-10-25 08:36] LABS: TOTAL BILIRUBIN 0.3 mg/dL (<0.1-1.0); TOTAL PROTEIN 7.4 g/dL (6.4-8.2)
[2017-10-25 11:55] VITALS: BP 139/62
[2017-10-25 12:51] VITALS: BP 131/61
== END | disposition home or self-care (01) ==
LOC: M.INT 07:31
PROVIDERS: Radiology Diagnostic Radiology
DX: M80.08XA Age-related osteoporosis with current pathological fracture, vertebra(e), initial encounter for fracture (principal); M54.5 Low back pain; I10 Essential (primary) hypertension; E78.5 Hyperlipidemia, unspecified; I48.91 Unspecified atrial fibrillation; J44.1 Chronic obstructive pulmonary disease with (acute) exacerbation; Z79.01 Long term (current) use of anticoagulants; Z95.2 Presence of prosthetic heart valve; Z88.8 Allergy status to other drugs, medicaments and biological substances; Z79.82 Long term (current) use of aspirin; Z79.899 Other long term (current) drug therapy

== ENCOUNTER → 2017-12-11 | Outpatient (CLI) | payer MEDICARE, OTHER ==
--- NOTE | 2018-01-07 10:00 | PAINCON ---
[address] [address] PAIN MANAGEMENT CONSULTATION Name: JESSY KENT Room: [facility] NYAAmie Rawls#: [id number] Admission: 12/11/17 Attend Phys: Naren Lin MD Discharge: Date of : 31 Report #: [id number] THIS REPORT FOR: //name// CC: Joselito Lin DATE OF SERVICE: 12/11/2017 FOLLOWUP COMPLAINT: "I am still having some pain and I am getting somewhat weaker. I need to see how my back is healing." FOLLOWUP HISTORY: The patient is an 87-year-old gentleman. As you may recall, he lifted some heavy items. There was cement that was in his garage. He suffered a compression fracture at that point. He has undergone a kyphoplasty. He states it has been about 6-8 weeks since he had the procedure. He is interested in noting the status of his back. He still has pain and discomfort and would like to know whether or not he has a new compression fracture. The patient states that he has a physical therapist feels that he needs to be evaluated prior to resumption of physical therapy. The patient slept in his bed for the last few nights. His son put a lift/trapeze over his bed to help him move from a lying to a sitting position. Notes that the pain is quite problematic when he goes from a little supine to a standing sitting/standing position. Note some increased pain and discomfort when he coughs when. He has lost about 30 pounds overall. He is now using a walker for this more appropriate for his height. He is bending over less. He still is unsteady on his feet. He would like to return to physical therapy to increase his activity level. Rates his pain as a 1 when sitting. Goes to an 8-9 when he goes to a standing position. Occasionally uses [place] 10/325 p.r.n. Has used Soma in the past for muscle spasms. Notes that significant muscle spasms can be problematic when he is active. He is still on Coumadin and has not stopped that medication. ALLERGIES: CIPROFLOXACIN AND LEVOFLOXACIN, OMEPRAZOLE AND ZOCOR. CURRENT MEDICATIONS: Pacerone, aspirin 81 mg, Soma 350 mg 1 p.o. t.i.d. p.r.n., vitamin D 400 mg, glucosamine 500 mg, hydrocodone 5/325 one p.o. p.r.n., Synthroid 75 mcg, Lidoderm patches, omega fatty acids, Crestor 20 mg at bedtime, verapamil 240 mg, vitamin E 400 mg and Coumadin 3 mg Sunday, , Sunday, Sunday. PAIN CLINIC ASSESSMENT: 1. The patient does have some arthritic changes in his low back area. 2. Height 6 feet 5 inches. Weight 202 pounds and BMI 24. 3. VITAL SIGNS: Blood pressure 130/62, heart rate 78, respiratory rate 16, room air saturation is 97%, temperature 97.9. Pain intensity 1 while sitting [facility] [address] [place] [address] PAIN MANAGEMENT CONSULTATION Name: JESSY KENT Room: [facility]#: [id number] Admission: 12/11/17 Attend Phys: Naren Lin MD Discharge: Date of : 31 Report #: [id number] with standing. 4. Fall risk. The patient has not fallen, but does need some assistance feels unstable on his feet. 5. Blood thinner. The patient continues on Coumadin. 6. History of hypertension. 7. Risk assessment tool. 8. Functional assessment tool. 9. Recreational drug use. The patient denies use of recreational drugs. 10. Tobacco: The patient denies use of tobacco. 11. Alcohol: The patient denies use of alcohol. PHYSICAL EXAMINATION: GENERAL: The patient is a well-developed white male, appears his stated age. He is alert and oriented x 3. His affect is appropriate. His is with him. HEENT: Normocephalic, atraumatic. Extraocular eye muscles intact. Sclerae nonicteric. Hearing is within normal limits. Mucous membranes were moist. NECK: Without adenopathy. Good range of motion. LUNGS: Clear to auscultation without rhonchi. HEART: History of atrial fibrillation and history of aortic valve replacement. ABDOMEN: Nontender. MUSCULOSKELETAL: The patient has pain in the lower portion of his back. Notes increased pain when he coughs. Has pain and discomfort significant increasing when he goes from a sitting to a standing position. Walks with use of a rolling walker. Somewhat unstable on his feet. Notes that walking for more than a few minutes can increase his pain and discomfort. IMPRESSION: 1. Status post compression fracture in the low back area. 2. Myofascial pain. 3. Hypertension. 4. Atrial fibrillation with chronic anticoagulation with the aortic valve replacement history. 5. Hyperlipidemia. RECOMMENDATIONS: We discussed treatment options with the patient. Risks and benefits of an x-ray to evaluate the current status of his back and did note whether or not he has additional compression fracture will be performed. Hopefully, the patient continues to improve. He would then proceed with physical therapy to increase his muscle strengths. He will call us if he has any concerns. He should continue with his opioid medications to help mitigate his pain while he is trying to increase his level of activity[place] [address] PAIN MANAGEMENT CONSULTATION Name: YOLIEDYO Room: [facility]#: [id number] Admission: 12/11/17 Attend Phys: Naren Lin MD Discharge: Date of : 31 Report #: [id number] the pain clinic and have this refilled. We would like to thank you for letting us participate in his care. We hope he continues to improve. <ELECTRONICALLY SIGNED> By: Naren Lin MD 01/07/18 1000 1611 2329N. Wnag Lin MD /nt
== END ==
LOC: M.PC 10-02 10:40
DX: S32.040D Wedge compression fracture of fourth lumbar vertebra, subsequent encounter for fracture with routine healing (principal); M41.86 Other forms of scoliosis, lumbar region; M79.1 Myalgia; I10 Essential (primary) hypertension; E78.5 Hyperlipidemia, unspecified; I48.91 Unspecified atrial fibrillation; X58.XXXD Exposure to other specified factors, subsequent encounter

== ENCOUNTER → 2017-12-19 | Outpatient (CLI) | payer MEDICARE, OTHER | LOC: M.MRI 12:37 | DX: S32.14XA Type 1 fracture of sacrum, initial encounter for closed fracture (principal); S32.049A Unspecified fracture of fourth lumbar vertebra, initial encounter for closed fracture; S32.059A Unspecified fracture of fifth lumbar vertebra, initial encounter for closed fracture; M47.896 Other spondylosis, lumbar region; X58.XXXA Exposure to other specified factors, initial encounter; Y93.89 Activity, other specified; Y92.89 Other specified places as the place of occurrence of the external cause; Y99.8 Other external cause status ==

== ENCOUNTER → 2018-01-22 | Outpatient (CLI) | payer MEDICARE, OTHER ==
--- NOTE | 2018-02-06 16:28 | PAINCON ---
[address] [address] PAIN MANAGEMENT CONSULTATION Name: JESSY KENT Room: [facility] JERRY Rawls#: [id number] Admission: 01/22/18 Attend Phys: Naren Lin MD Discharge: Date of : 31 Report #: [id number] THIS REPORT FOR: //name// CC: Joselito Lin DATE OF SERVICE: 01/22/2018 CHIEF COMPLAINT: "I have got some questions ____." HISTORY OF PRESENT ILLNESS: The patient is an 87-year-old gentleman who has been followed in the pain clinic because of chronic pain. As you recall, he suffers from compression fractures. He did have a vertebroplasty. Continues to have pain and discomfort in the lower portion of his back. He has recently been provided with a brace. Feels that the brace is helpful. It helps him to sit up in a more upright position. He is somewhat limited in certain activities because of the brace, but overall his feels that this helps improve his posture and keeps him standing erect. He is concerned about when he can go back to more normal activities. He does not wear the brace when he is sitting or sleeping. Has some question as to whether or not he can continue mowing his lawn and doing other activities. He would like to increase his activity level. He would like to have exercises that would be beneficial. His biggest concern is that he has lost significant muscle bulk. He has been hospitalized over the last couple of years a number of times and each time he feels that he is losing more and more muscle. Feels that the Butrans medication is helpful. He has less episodes where he awakens from sleep with a significant amount of pain. His says he is more alert and has fewer of those episodes of being increasingly sleepy after taking pain medicines in the past. Overall, things are going reasonably well. He is seeking the opinion of a neurosurgeon. States that in about February, he will see a surgeon and note their comments. ALLERGIES: CIPROFLOXACIN, LEVOFLOXACIN, OMEPRAZOLE, ZOCOR. MEDICATIONS: Pacerone, 81 mg aspirin, Soma 350 mg 1 p.o. t.i.d., p.r.n., vitamin D 400, Butrans 5 mcg per hour to skin, Synthroid 75 mcg, Lidoderm patches, omega fatty acids, Crestor 20 mg at bedtime, verapamil 240 mg, vitamin E 400 mg, Coumadin 3 mg Sunday, , Sunday, and Sunday. PAIN CLINIC ASSESSMENT/PQRS: 1. The patient does have some arthritic changes in his lower back with a history of compression fracture. The patient has not been treated for rheumatoid arthritis. 2. Height 6 feet 5 inches, weight 210 pounds, BMI is 25. 3. Vital signs: Blood pressure 136/72, heart rate 80, respiratory rate 16, room air saturation 95%, temperature 99, pain clinic score 1/10. 4. Fall risk. The patient has not fallen in the last 3 months. Does walk with [facility] [address] [place] [address] PAIN MANAGEMENT CONSULTATION Name: JESSY KENT Room: [facility]#: [id number] Admission: 01/22/18 Attend Phys: Naren Lin MD Discharge: Date of : 31 Report #: [id number] his walker. 5. Blood thinner. The patient is on Coumadin. 6. History of hypertension. The patient is being treated for hypertension. 7. Risk assessment tool. 8. Functional assessment tool. 9. Recreational drug use. The patient denies use of recreational drugs. 10. Tobacco: The patient denies use of tobacco. 11. Alcohol: The patient denies use of alcohol. PHYSICAL EXAMINATION: GENERAL: The patient is a well-developed, well-nourished white male. Appears his stated age. He is with his . She has macular degeneration. HEENT: Normocephalic, atraumatic. Extraocular eye muscles intact. Sclerae nonicteric. Hearing is within normal limits. Mucous membranes are moist. NECK: Without adenopathy, good range of motion. LUNGS: Clear to auscultation. HEART: History of atrial fibrillation with history of aortic valve replacement. ABDOMEN: Nontender. MUSCULOSKELETAL: The patient has some pain in the lower portion of his back. He does have his brace in place. Notes that this helps to keep him erect. Continues to walk with aid of a rolling walker. Has some discomfort in his low back area with certain activities. IMPRESSION: 1. Status post compression fracture of the low back area. 2. Myofascial pain. 3. Hypertension. 4. Atrial fibrillation with chronic coagulation for aortic valve replacement. 5. Hyperlipidemia. RECOMMENDATIONS: We had a long talk with the patient and his for about 20 minutes. We explained that I think it would be reasonable for him to see a physical therapist. They can decide which exercises at this juncture, he might be able to do with the least likelihood of injuring his back. We explained to him that probably mowing his lawn and doing other things like that of activities that might be ill advised at this juncture. We will continue with the patient's Butrans patch. He finds that this is helpful. His thinks it is helpful. He has less episodes where he wakes from sleep and is uncomfortable. Rates his pain as a /10 at this juncture. The patient states that he is going to see a neurosurgeon in February. We may consider another MRI to note the healing in the lower portion of his back. A script for physical therapy has been written. Renewal of his Butrans patch has been performed. He will call us [place] [address] PAIN MANAGEMENT CONSULTATION Name: JESSY KENT Room: [facility]#: [id number] Admission: 01/22/18 Attend Phys: Naren Lin MD Discharge: Date of : 31 Report #: [id number] We would like to thank you for letting us participate in his care. We hope he continues to improve. <ELECTRONICALLY SIGNED> By: Naren Lin MD 02/06/18 1628 1613 1929N. Wang Lin MD /nt
== END ==
LOC: M.PC 05:06
DX: S32.000D Wedge compression fracture of unspecified lumbar vertebra, subsequent encounter for fracture with routine healing (principal); M79.18 Myalgia, other site; I10 Essential (primary) hypertension; I48.91 Unspecified atrial fibrillation; E78.5 Hyperlipidemia, unspecified; Z79.01 Long term (current) use of anticoagulants; X58.XXXD Exposure to other specified factors, subsequent encounter

== ENCOUNTER → 2018-02-08 | Outpatient (CLI) | payer MEDICARE, OTHER | LOC: M.MRI 08:04 | DX: S32.029D Unspecified fracture of second lumbar vertebra, subsequent encounter for fracture with routine healing (principal); S32.10XD Unspecified fracture of sacrum, subsequent encounter for fracture with routine healing; M48.062 Spinal stenosis, lumbar region with neurogenic claudication; M25.78 Osteophyte, vertebrae; M51.26 Other intervertebral disc displacement, lumbar region; X58.XXXD Exposure to other specified factors, subsequent encounter ==

== ENCOUNTER 2018-03-04 08:15 | Emergency (ER) | payer MEDICARE, OTHER ==
[~2018-03-04] VITALS: Ht 195.6 cm; Wt 93.9 kg
[2018-03-04] MEDS ORDERED: BUPRENORPHINE1 EAC2 TOP (08:25)
[2018-03-04] MEDS ORDERED: COUMADIN 4 MG TA4 M1 PO (08:34)
[2018-03-04 08:41] LABS: ABSOLUTE BASOPHILS 0.1 thou/uL (0.0-0.2); ABSOLUTE EOSINOPHILS 0.2 thou/uL (0.0-0.7); ABSOLUTE LYMPHOCYTES 0.8 thou/uL (0.8-5.3); ABSOLUTE MONOCYTES 0.5 thou/uL (0.0-1.2); ABSOLUTE NEUTROPHILS 4.2 thou/uL (1.6-8.1); BASOPHILS 1.4 %; EOSINOPHILS 2.8 %; HEMOGLOBIN 12.7 gm/dL (14.0-18.0); LYMPHOCYTES 14.1 %; MCH 30.7 pg (26.0-34.0); MCHC 33.3 g/dL (28.0-37.0); MONOCYTES 8.8 %; MPV 8.2 fl. (7.2-11.1); NUCLEATED RBCS 0 /100WBC; PLATELET COUNT* 224 thou/uL (150-400); POLYS 72.9 %; RBC 4.13 mil/uL (4.50-6.00); RDW-CV 14.3 % (10.5-14.5); WBC 5.8 thou/uL (4.0-11.0)
[2018-03-04 08:55] LABS: ANION GAP 6 mmol/L (7-16); BUN 10 mg/dL (7-18); CALCIUM 8.9 mg/dL (8.5-10.1); CHLORIDE 104 mmol/L (98-107); CO2 29 mmol/L (21-32); CREATININE 0.7 mg/dL (0.6-1.3); GLUCOSE 88 mg/dL (70-99); POTASSIUM 3.9 mmol/L (3.5-5.1); SODIUM 139 mmol/L (136-145)
[2018-03-04 08:59] LABS: ALKALINE PHOSPHATASE 86 U/L (46-116); LIPASE 147 U/L (73-393); SGOT 29 U/L (15-37); SGPT 21 U/L (30-65); TOTAL BILIRUBIN 0.3 mg/dL (<0.1-1.0); TOTAL PROTEIN 7.6 g/dL (6.4-8.2); TROPONIN-I LEVEL <0.06 ng/mL (<0.06)
[2018-03-04] MEDS ORDERED: DOXYCYCLINE 10100 MG PO (09:28)
[2018-03-04 09:44] VITALS: BP 135/72
--- NOTE | 2018-03-04 17:33 | EKG ---
[place] [address] ELECTROCARDIOGRAM REPORT Name: CATHERINEJESSY WARNER Room: [facility]#: [id number] Admission: 03/04/18 Attend Phys: Discharge: 03/04/18 Date of : 31 Report #: [id number] THIS REPORT FOR: //name// [facility] ED Test Date: 2018-03-04 Test Time: 08:18:53 Pat Name: JESSY KENT Department: Room: Gender: M Health/Safety Job Titles: PARRISH : 1930 Requested By: Jose Bailey Order Number: [id number] MD: Sean Huerta Measurements Intervals [place] Rate: 112 P: [place]: QRS: 82 QRSD: 96 T: -27 QT: 351 QTc: 479 Interpretive Statements Atrial fibrillation Borderline right axis deviation Borderline repol abnormality, diffuse leads Borderline prolonged QT interval Compared to ECG 05/29/2017 04:33:11 no change Electronically Signed On 03-04-2018 17:33:45 PRODUCTION CONTROL SUPERVISOR by Sean Huerta [email or web address] <ELECTRONICALLY SIGNED> By: Sean Huerta MD, [facility] 03/04/18 1733 7 7 Sean Huerta MD, [facility] /EPI
== END 2018-03-04 09:46 | disposition home or self-care (01) ==
LOC: M.ERS 08:15
PROVIDERS: Emergency Medicine Emergency Medical Services
DX: R00.2 Palpitations (principal); J18.9 Pneumonia, unspecified organism; I48.91 Unspecified atrial fibrillation; I10 Essential (primary) hypertension; E78.5 Hyperlipidemia, unspecified; J44.9 Chronic obstructive pulmonary disease, unspecified; Z88.1 Allergy status to other antibiotic agents; Z88.8 Allergy status to other drugs, medicaments and biological substances

== ENCOUNTER → 2018-03-14 | Outpatient (CLI) | payer MEDICARE, OTHER ==
[~2018-03-14] MED LIST changes: +BUPRENORPHINE1 EAC2 TOP; +COUMADIN 4 MG TA4 M1 PO
== END ==
LOC: M.RAD 12:01
DX: J90 Pleural effusion, not elsewhere classified (principal); J18.9 Pneumonia, unspecified organism

== ENCOUNTER → 2018-03-27 | Outpatient (CLI) | payer MEDICARE, OTHER ==
[~2018-03-27] MED LIST changes: +COUMADIN 5 MG TA5 M1 PO; +CRESTOR20 MG PO; +MULTAQ 400 MG400 MG PO; +VERAPAMIL ER240 M1 PO; +VITAMIN D1000 UNI1 PO
== END ==
LOC: M.RAD 10:30
DX: M85.89 Other specified disorders of bone density and structure, multiple sites (principal); M80.00XA Age-related osteoporosis with current pathological fracture, unspecified site, initial encounter for fracture

== ENCOUNTER 2018-03-28 08:55 | Inpatient (IN) | payer MEDICARE, OTHER ==
[~2018-03-28] VITALS: Ht 193 cm; Wt 95.3 kg
[~2018-03-28 08:55] MED LIST changes: -COUMADIN 5 MG TA5 M1 PO; -CRESTOR20 MG PO; -MULTAQ 400 MG400 MG PO; -VERAPAMIL ER240 M1 PO; -VITAMIN D1000 UNI1 PO
[2018-03-28 08:59] VITALS: BP 145/73
[2018-03-28] MEDS ORDERED: AMIODARONE HCL100 MG PO (09:20)
[2018-03-28] MEDS ORDERED: VITAMIN D1000 UNI1 PO (09:21)
[2018-03-28] MEDS ORDERED: GLUCOSAMINE HC500 MG PO (09:21)
[2018-03-28] MEDS ORDERED: CRESTOR20 MG PO (09:22)
[2018-03-28] MEDS ORDERED: VERAPAMIL ER240 M1 PO (09:23)
[2018-03-28] MEDS ORDERED: COUMADIN 5 MG TA5 M1 PO (09:24)
[2018-03-28 09:37] LABS: ABSOLUTE BASOPHILS 0.1 thou/uL (0.0-0.2); ABSOLUTE EOSINOPHILS 0.1 thou/uL (0.0-0.7); ABSOLUTE LYMPHOCYTES 0.7 thou/uL (0.8-5.3); ABSOLUTE MONOCYTES 0.5 thou/uL (0.0-1.2); ABSOLUTE NEUTROPHILS 3.6 thou/uL (1.6-8.1); BASOPHILS 1.8 %; EOSINOPHILS 1.6 %; HEMATOCRIT 39.9 % (42.0-52.0); MCH 29.9 pg (26.0-34.0); MCHC 32.5 g/dL (28.0-37.0); MCV 92.2 fL (80.0-100.0); MONOCYTES 10.1 %; MPV 8.2 fl. (7.2-11.1); NUCLEATED RBCS 0 /100WBC; PLATELET COUNT* 258 thou/uL (150-400); POLYS 72.5 %; RBC 4.33 mil/uL (4.50-6.00); RDW-CV 15.3 % (10.5-14.5)
[2018-03-28 09:44] LABS: CALCIUM 8.9 mg/dL (8.5-10.1)
[2018-03-28 09:49] LABS: ALBUMIN 3.3 g/dL (3.4-5.0); TOTAL BILIRUBIN 0.4 mg/dL (<0.1-1.0); TOTAL PROTEIN 7.9 g/dL (6.4-8.2)
[2018-03-28 09:53] LABS: APTT 32.4 Seconds (25.0-31.3); INR 1.6; PROTIME 16.5 Seconds (9.20-11.50)
[2018-03-28 09:57] LABS: BE 2.6 mmol/L (-2 to +3); HCO3 28.5 mmol/L (22.0-26.0); PO2 70.4 mmHg (75.0-100.0); pH 7.383 (7.340-7.450)
[2018-03-28 11:59] LABS: URINE BILIRUBIN NEGATIVE (Negative); URINE BLOOD NEGATIVE (Negative); URINE CLARITY CLEAR; URINE COLOR YELLOW; URINE GLUCOSE-RANDOM NEGATIVE (Negative); URINE KETONES NEGATIVE (Negative); URINE LEUKOCYTES-REFLEX NEGATIVE (Negative); URINE NITRITE-REFLEX NEGATIVE (Negative); URINE PROTEIN NEGATIVE (Negative); URINE UROBILINOGEN 0.2 E.U./dl (0.2-1.0)
[2018-03-28 12:12] LABS: NT-PRO BRAIN NAT PEPTIDE 1334 pg/mL (<300); TROPONIN-I LEVEL <0.06 ng/mL (<0.06)
--- NOTE | 2018-03-28 13:47 | EKG ---
[place] [address] ELECTROCARDIOGRAM REPORT Name: JESSY KENT Room: [place] [address] ADM IN .R.#: [id number] Admission: 03/28/18 Attend Phys: Topher Pérez MD Discharge: Date of : 31 Report #: [id number] THIS REPORT FOR: //name// [facility] ED Test Date: 2018-03-28 Test Time: 09:01:20 Pat Name: JESSY KENT Department: Room: [facility] Gender: Leather Staker: Alexandra BARILLAS : 1930 Requested By: Neda Peralta Order Number: [id number] MD: Nabor Saldivar Measurements Intervals [place] Rate: 87 P: CT: QRS: 77 QRSD: 98 T: -7 QT: 393 QTc: 473 Interpretive Statements Atrial flutter Borderline T abnormalities, inferior leads Baseline wander in lead(s) V4 Compared to ECG 03/04/2018 08:18:53 T-wave abnormality now present Atrial fibrillation no longer present Electronically Signed On 03-28-2018 13:47:19 RECEIVING ASSOCIATE by Nabor Saldivar [email or web address] <ELECTRONICALLY SIGNED> By: Nabor Saldivar MD, FACC 03/28/18 1347 0901 0901 Nabor Saldivar MD, FAC /EPI
[2018-03-28 14:20] VITALS: BP 136/82
[2018-03-28 14:30] VITALS: BP 133/81
--- NOTE | 2018-03-28 18:46 | NUR ---
PT ADMITTED FROM ED THIS AFTERNOON. PT HAS HX OF AFIB AND PNEUMONIA SYMPTOMS X3 WEEKS. PT HAS HAD SOA AND IS TOLERATING 2L PER NC THIS SHIFT. PT IS UP W SBA THIS SHIFT AND HAS NO C/O PAIN AT THIS TIME. PT WAITING FOR 3 DAYS UNTIL HE HAS BEEN OFF COUMADIN FOR THE APPROPRIATE TIME FOR THORACENTESIS. PT FAMILY UPDATED. NEUROLOGY, CARDIOLOGY, AND PULMONOLGY ALL CONSULTED FOR THIS PATIENT THIS SHIFT. PT HAS HX OF AFIB AND IS CURRENTLY IN AFIB WITH A CONTROLLED RATE.
[2018-03-28 19:50] VITALS: BP 155/86
[2018-03-29] VITALS (7 sets, daily range): BP systolic 96–133; BP diastolic 48–77
--- NOTE | 2018-03-29 01:20 | NUR ---
ASSUMED CARE OF PT AT 1900. PT IS ALERT AND ORIENTED. VSS. PERRLA. NO COMNPLANTS OF PAIN. PT IS IN A FIB ON THE TELEMETRY. PT IS RESTING COMFORTABLY IN BED. RESPIRATIONS ARE EVEN AND NONLABORED. WILL CONTINUE TO MONITOR PT.
[2018-03-29] MEDS ORDERED: SYNTHROID75 MCG PO (05:10)
[2018-03-29 05:11] LABS: HEMATOCRIT 37.5 % (42.0-52.0); HEMOGLOBIN 12.1 gm/dL (14.0-18.0); MCH 29.9 pg (26.0-34.0); MCHC 32.4 g/dL (28.0-37.0); MCV 92.4 fL (80.0-100.0); MPV 8.1 fl. (7.2-11.1); NUCLEATED RBCS 0 /100WBC; PLATELET COUNT* 264 thou/uL (150-400); RBC 4.06 mil/uL (4.50-6.00); RDW-CV 15.1 % (10.5-14.5); WBC 7.5 thou/uL (4.0-11.0)
[2018-03-29 05:29] LABS: PROTIME 20.6 Seconds (9.20-11.50)
[2018-03-29 06:08] LABS: CALCIUM 8.7 mg/dL (8.5-10.1); CREATININE 0.9 mg/dL (0.6-1.3); POTASSIUM 4.7 mmol/L (3.5-5.1)
[2018-03-29 08:17] LABS: ABSOLUTE LYMPHOCYTES 0.5 thou/uL (0.8-5.3); ABSOLUTE MONOCYTES 0.2 thou/uL (0.0-1.2); ABSOLUTE NEUTROPHILS 6.9 thou/uL (1.6-8.1)
[2018-03-29 08:18] LABS: ANISOCYTOSIS 1+; PLATELET ESTIMATE ADEQUATE; POIKILOCYTOSIS 1+
--- NOTE | 2018-03-29 13:10 | NUR ---
Nutrition: pt seen for nutrition risk screen. Pt reported his appetite is very good. Reported wt loss earlier in 2018 related to a fall/fx. Wt down only 10 lb in past 6 months. Pt was sometimes drkinking supplement DIRECTOR REGULATORY COMPLIANCE, does not think he needs any at this time. Wt iw WNL. Albumin mildly low. Solumedrol and other meds reviewed. Pt at low-mild nutrition risk.
--- NOTE | 2018-03-29 15:10 | NUR ---
Pt is A&O. Resides at home with his . Supportive family that is invovled in POC. Pt has a walker that he can use if needed. No hx of HH or SNF. Hx of cardiac rehab. goal is home at ct. Following for disposition.
--- NOTE | 2018-03-30 02:11 | NUR ---
RECIEVED REPORT AND ASSUMED CARE AT 1900. ESCALATOR INSTALLER IN PLACE. VITAL SIGNS ARE STABLE. PT UP ADLIB AND ON 2L NC. PT DENIES ANY PAIN AT THIS TIME. ASSESSMENT COMPLETED, DISCUSSED PLAN OF CARE AND PT UNDERSTANDS. BED LOCKED AND CALL LIGHT WITHIN REACH. FALL PRECAUTIONS IN PLACE. HOURLY ROUNDING COMPLETE AND ALL NEEDS MET. NURSING WILL CONTINUE TO MONITOR.
[2018-03-30 04:00] VITALS: BP 125/83
[2018-03-30 05:25] LABS: ABSOLUTE LYMPHOCYTES 0.2 thou/uL (0.8-5.3); ABSOLUTE MONOCYTES 0.1 thou/uL (0.0-1.2); ABSOLUTE NEUTROPHILS 9.2 thou/uL (1.6-8.1); BASOPHILS 0.1 %; HEMATOCRIT 37.4 % (42.0-52.0); HEMOGLOBIN 12.3 gm/dL (14.0-18.0); LYMPHOCYTES 2.6 %; MCH 30.3 pg (26.0-34.0); MCHC 32.8 g/dL (28.0-37.0); MCV 92.2 fL (80.0-100.0); MONOCYTES 1.2 %; NUCLEATED RBCS 0 /100WBC; PLATELET COUNT* 257 thou/uL (150-400); POLYS 96.1 %; RBC 4.05 mil/uL (4.50-6.00); RDW-CV 15.5 % (10.5-14.5); WBC 9.6 thou/uL (4.0-11.0)
[2018-03-30] MEDS ORDERED: MULTAQ 400 MG400 MG PO (05:33)
[2018-03-30 05:42] LABS: INR 1.6; PROTIME 16.7 Seconds (9.20-11.50)
[2018-03-30 05:58] LABS: ALBUMIN 3.1 g/dL (3.4-5.0); CALCIUM 8.4 mg/dL (8.5-10.1); CREATININE 0.9 mg/dL (0.6-1.3); POTASSIUM 4.7 mmol/L (3.5-5.1); TOTAL BILIRUBIN 0.3 mg/dL (<0.1-1.0)
--- NOTE | 2018-03-30 06:49 | CON ---
[address] [address] CONSULTATION Name: JESSY KENT Room: [address] IN M.R.#: [id number] Admission: 03/28/18 Attend Phys: Topher Pérez MD Discharge: Date of : 31 Report #: [id number] THIS REPORT FOR: //name// CC: Topher Romero REASON FOR CONSULTATION: Pleural effusion. HISTORY OF PRESENT ILLNESS: This is an 88-year-old male patient who sees Dr. Samuel from pulmonary practice at [facility]. He has a history of COPD. He smoked for a very long time. He quit around 25 years ago. He is not on oxygen or regular inhalers at home. 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 He was hospitalized for 1 month and was treated one year for a TB. According to him, they did not confirmed it, but they suspected it, so they treated him for TB. He described a procedure for diagnostic purposes, sounded like mediastinoscopy at that time and he told me they took biopsies from the left lung. His current CT scan showing significant calcification on the left side and he told me he always had abnormal looking chest x-ray on the left side of his lung and he told me also they think it is related to the TB that was treated long time ago. He presented to the hospital with increasing shortness of breath. Four weeks prior to hospitalization, he saw his primary care doctor for productive cough and was put on antibiotic and he also was found to have AFib and started on anticoagulation. He reported the cough actually improved somewhat with antibiotic, but he resumed his symptoms again. Three weeks ago, he was started on Spiriva and never before. As mentioned above, he is not on oxygen. Per the admission record, he had some slurring of speech recently. He was found to have pleural effusion and he is scheduled for thoracentesis soon when his INR is at the safe level. He denied any lower extremity edema. He denied any chest pain. He denied any congestion or sick contact. PAST MEDICAL HISTORY: Atrial fibrillation, on anticoagulation; history of COPD, history of previous smoking, history of compression fracture, history of hygroma, hyperlipidemia, valve replacement surgery. PAST SURGICAL HISTORY: Includes valve replacement surgery and what he described as mediastinoscopy in the past. HOME MEDICATIONS: Aspirin, verapamil, amiodarone, lovastatin, Coumadin and recently started on Spiriva. ALLERGIES: CIPROFLOXACIN, OMEPRAZOLE, SIMVASTATIN, [place] [address] CONSULTATION Name: JESSY KENT Room: [address] [place] [facility]#: [id number] Admission: 03/28/18 Attend Phys: Topher Pérez MD Discharge: Date of : 31 Report #: [id number] SOCIAL HISTORY: Ex-smoker, smoked for a very long time, but quit 25 years ago. Carries diagnosis of COPD. Does not drink alcohol excessively. REVIEW OF SYSTEMS: No fever, no chills, no blurring of vision. He did not give me a clear history of PNDs or orthopnea. He denied sick contacts. Cough is still present. He has congestion. He denied any bruising or recent fall, rash or skin changes. The rest of the review of system was negative. A 12-point reviewed with the patient. PHYSICAL EXAMINATION: GENERAL: He is on 2 liter oxygen, O2 saturation of 96%. Speaks in full sentences, slightly tachypneic at the end of the symptoms. HEENT: Head: Normocephalic, atraumatic. Pupils are reactive to light. Oral cavity, moist mucous membranes. External ears look healthy and normal. Nasal cavity, patent passages. Oral cavity, Mallampati of 2. NECK: Supple. No palpable lymph node. No palpable thyroid. Trachea is central. CHEST: Diminished air movement bilaterally, prolonged expiratory phase, rare occasional wheeze. HEART: S1, S2, no murmur. ABDOMEN: Benign, soft, lax, nontender, positive bowel sounds. EXTREMITIES: Lower extremities, no edema noted. No calf tenderness. SKIN: Normal for age and race, no rash. PSYCHIATRIC: Mood and affect appropriate. NEUROLOGIC: Moving all 4 extremities spontaneously. No focal weakness. Cranial nerves are grossly normal. LYMPHATICS: No palpable lymph node. LABORATORY DATA: Reviewed. His creatinine is 1 and his bicarbonate 31, chloride of 101, potassium 4, sodium 137. BNP elevated at 1334. His INR was 2 today, 1.6 yesterday. His ABG, 7.3/49/70. This was done on room air. He had a chest x-ray that showed basilar infiltrate. CT of the chest showed right lower lobe atelectasis with parenchymal scarring and right-sided pleural effusion and extensive left-sided pleural calcification. IMPRESSION: 1. Acute hypoxic respiratory failure. 2. Chronic obstructive pulmonary disease exacerbation. 3. Pulmonary infiltrate. 4. Pleural effusion. 5. Elevated BNP, picture of congestive heart failure. PLAN: 1. The patient had LORNE back in May that demonstrates ejection fraction of 55-60% at that time. His BNP is elevated at this point with bilateral pleural effusion, more on the right than the left, which is suggestive for CHF. 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 He told me he was treated for TB for one year and had a repeat course few years later based on abnormal chest x-ray when he was in [facility]. He is not producing any sputum at this point. I agree with treating him for pneumonia at this point. I am going to put him on bronchodilators. His heart rate is less than 100. I will put him on steroids to help with the COPD exacerbation. 2. Awaiting thoracentesis. I agree with checking for Mycobacterium TB in the fluids. Thank you for the consult. We will continue to follow along with you. <ELECTRONICALLY SIGNED> By: Mikki Buckley MD 03/30/18 0649 0920 [id number] Campos MD /nt
--- NOTE | 2018-03-30 08:20 | NUR ---
PT RESTING IN BED, APPEARS ALERT O X 4, DENIES CHEST PAIN, DENIES SOB AT REST, DENIES PAIN. PLAN ON THORANCEBTESIS ON Sunday04-01-18, DR CHASE HERE TO SEE, A-FIB ON MONITOR
[2018-03-30 08:43] VITALS: BP 134/76
[2018-03-30 11:30] VITALS: BP 108/59
[2018-03-30 15:10] VITALS: BP 125/69
--- NOTE | 2018-03-30 17:21 | NUR ---
PT RESTING IN BED, WITHOUT C/O, STATES SOME SOB WITH ACTIVITY, REMAINS O X4, SPOUSE AT SIDE MOST OF DAY. A-FIB ON MONITOR 80S-110S, RATE INCRAESE WITH ACTIVITY, PLAN ON THORANCENTESIS ON Sunday04-01-18
[2018-03-30 20:00] VITALS: BP 118/75
[2018-03-31] VITALS: BP 132/78
[2018-03-31 04:00] VITALS: BP 131/84
[2018-03-31 05:40] LABS: ABSOLUTE LYMPHOCYTES 0.3 thou/uL (0.8-5.3); ABSOLUTE MONOCYTES 0.3 thou/uL (0.0-1.2); ABSOLUTE NEUTROPHILS 10.1 thou/uL (1.6-8.1); HEMATOCRIT 37.3 % (42.0-52.0); HEMOGLOBIN 12.6 gm/dL (14.0-18.0); LYMPHOCYTES 2.8 %; MCH 31.1 pg (26.0-34.0); MCHC 33.7 g/dL (28.0-37.0); MCV 92.1 fL (80.0-100.0); MPV 8.3 fl. (7.2-11.1); NUCLEATED RBCS 0 /100WBC; PLATELET COUNT* 253 thou/uL (150-400); POLYS 94.2 %; RBC 4.05 mil/uL (4.50-6.00); RDW-CV 15.4 % (10.5-14.5); WBC 10.7 thou/uL (4.0-11.0)
[2018-03-31 05:44] LABS: INR 1.4; PROTIME 13.9 Seconds (9.20-11.50)
--- NOTE | 2018-03-31 05:54 | NUR ---
ASSUMED PT CARE @ 1930. A+OX4. FAMILY AND AT BEDSIDE. NO PAIN OR DISCOMFORT REPORTED OR NOTED. AFIB TRACING ON MONITOR. DENIES SOA (ONLY OBSERVED PT RESTING IN BED). CALL LIGHT IN REACH. HOURLY ROUNDING FOR SAFETY.
[2018-03-31 05:56] LABS: CALCIUM 8.6 mg/dL (8.5-10.1); CREATININE 0.8 mg/dL (0.6-1.3); POTASSIUM 4.7 mmol/L (3.5-5.1)
--- NOTE | 2018-03-31 08:09 | NUR ---
PT RESTING IN BED, EXTREMELY [place], APPEARS ALERT O X 4, DENIES CHEST PAIN, SOB AT REST, ON O2 AT 2L PER NC, SATS 93% , DENIES PAIN OR DISCOMFORT, A-FIB ON MONITOR
[2018-03-31 08:12] VITALS: BP 125/85
[2018-03-31 11:40] VITALS: BP 125/72
[2018-03-31 15:50] VITALS: BP 130/76
--- NOTE | 2018-03-31 18:53 | NUR ---
PT UP AD CARISA IN ROON TODAY, REMAISN ALERT O X 4, DENIES CHEST P[AIN, SOME SOB WITH EXERTION, HAD R LOWER LOBE PLEUAL EFFUSION, PLAN ON THORANCENTESIS IN, AM, PT WILL BE NPO AT MIDNIGHT, AMIODARONE D/C , STARTED ON MULTAQ HER HOME MEDS
[2018-03-31 20:20] VITALS: BP 135/85
[2018-04-01] VITALS (7 sets, daily range): BP systolic 106–136; BP diastolic 52–88
--- NOTE | 2018-04-01 02:47 | NUR ---
RECIEVED REPORT AND ASSUMED CARE AT 1950. TELEPRINTER INSTALLER IN PLACE. PULSE TACHY, OTHER THAN THAT VITAL SIGNS STABLE. PT UP WITH STANDBY ASSIST WTIH WALKER. PT DENIES ANY PAIN AT THIS TIME. ASSESSMENT COMPLETED, DISCUSSED PLAN OF CARE AND PT UNDERSTANDS. BED LOCKED AND CALL LIGHT WITHIN REACH. FALL PRECATIONS IN PLACE. HOURLY ROUNDING DONE AND ALL NEEDS MET. NURSING WILL CONTINUE TO MONITOR.
[2018-04-01 05:30] LABS: HEMATOCRIT 38.4 % (42.0-52.0); HEMOGLOBIN 12.7 gm/dL (14.0-18.0); MCH 30.4 pg (26.0-34.0); MCV 92.1 fL (80.0-100.0); MPV 8.5 fl. (7.2-11.1); NUCLEATED RBCS 0 /100WBC; PLATELET COUNT* 258 thou/uL (150-400); RBC 4.17 mil/uL (4.50-6.00); RDW-CV 15.9 % (10.5-14.5); WBC 9.6 thou/uL (4.0-11.0)
[2018-04-01 05:40] LABS: INR 1.2; PROTIME 11.8 Seconds (9.20-11.50)
[2018-04-01 05:53] LABS: CALCIUM 8.6 mg/dL (8.5-10.1); CREATININE 0.8 mg/dL (0.6-1.3); POTASSIUM 4.6 mmol/L (3.5-5.1)
[2018-04-01 06:57] LABS: ABSOLUTE LYMPHOCYTES 0.1 thou/uL (0.8-5.3); ABSOLUTE MONOCYTES 0.4 thou/uL (0.0-1.2); ABSOLUTE NEUTROPHILS 9.1 thou/uL (1.6-8.1); PLATELET ESTIMATE ADEQUATE
[2018-04-01 09:57] LABS: CLARITY HAZY; COLOR AMBER; SOURCE THORACENTESIS; TOTAL VOLUME 1800 ml
[2018-04-01 11:04] LABS: BF LYMPHOCYTES 92 %; BF POLYS 8 %; BF TISSUE 60 /100 WBC
[2018-04-01 11:05] LABS: BF MONOCYTES 0 %; BF RBC 3092 /mm3
--- NOTE | 2018-04-01 14:00 | CON ---
[address] [address] CONSULTATION Name: JESSY KENT Room: [address] ADM IN M.R.#: [id number] Admission: 03/28/18 Attend Phys: Topher Pérez MD Discharge: Date of : 31 Report #: [id number] THIS REPORT FOR: //name// CC: Topher Romero DATE OF SERVICE: 03/28/2018 HISTORY OF PRESENT ILLNESS: This is an 88-year-old male patient who was evaluated by me for some altered mental status. There is some question that this patient was confused yesterday. He does not think he was much confused. There is some question that at one time some speech difficulty was noticed. He does not believe that is the case. No paralysis was noticed. He had multiple systemic problems and that include dyspnea. He feels better. At one time, his walking was not good, but he said he is becoming better in that regard. REVIEW OF SYSTEMS: Indicate that the patient had shortness of breath. There was some question of pneumonia. He has atrial fibrillation. He is on chronic anticoagulation. He had some productive cough. He did have some neurological symptom as described above. He did have a valve placement in the past. He did undergo an MRI of the brain that does not show any acute changes. He does have some back issues, he said that make his walking difficult. I carried out the 14-point review of systems, in general, he feels his breathing is better. He does not believe his eyes and ears are affected. He does not complain of any chest pain, any nausea, vomiting. He does have chronic musculoskeletal problem. No constitutional, dermatological, hematological, psychiatric, throat, allergic symptom associated with present symptomatology. PAST MEDICAL HISTORY: Negative for any stroke. FAMILY HISTORY: Negative for early age stroke. SOCIAL HISTORY: He lives with his and his provided part of the history. He says he drinks alcohol only on special occasions. PHYSICAL EXAMINATION: Indicate he is alert, responsive, oriented, able to follow simple command. His speech and concentration looks mostly unremarkable. His cranial nerve examination is unremarkable. Strength, sensation, reflexes and tone is symmetrical. There is no meningeal sign. There is no carotid bruit. I could not look at the fundus. He is moderately built individual who does not have any dysmorphic features of eyes, ears and face. His vision and hearing looks adequate. He has no thyroid mass. Pulses are somewhat difficult to feel, but there is no papilledema. Blood pressure is 96/48, respirations 18, pulse is 96, temperature is 98.4. He did have an MRI, which was unremarkable. LABORATORY DATA: Indicate a white count of 7.5. Sodium is 140[place] [address] CONSULTATION Name: JESSY KENT Room: [address] IN .R#: [id number] Admission: 03/28/18 Attend Phys: Topher Pérez MD Discharge: Date of : 31 Report #: [id number] IMPRESSION: It would appear that his symptoms were most likely secondary to encephalopathy that is because of multiple systemic problems this patient has. It is unlikely it is transient ischemic attack. There is some question of speech difficulty and we will get an MRA to complete the workup. RECOMMENDATIONS: Presently, I will basically observe him and see if he has any more symptoms. I will await an MRA done. He is already on anticoagulation and I do not think much different need to be done if he continues to be stable. I discussed that aspect with the patient and he understands it and he wants to follow this plan. Thank you very much for this referral and if you have any question, please feel free to contact us. <ELECTRONICALLY SIGNED> By: Boom Curtis MD 04/01/18 1400 1753 0016Boom Curtis MD /nt
--- NOTE | 2018-04-01 15:44 | NUR ---
vss, pt was given d/c orders, called david TOOK OUT IV, HELP PT GET DRESSED AND PLACED IN WHEEL CHAIR, PROVITED D/C INSTRUCTIONS AND GAVE D/C PAPERS TO DAVID, HOURLY ROUNDS COMPLETED AND ALL PT BELONINGS AND PLACED WITH PT, PT TAKEN OUT WITH STAFF TO CAR,
--- NOTE | 2018-04-01 19:01 | NUR ---
VSS, ASSUMED CARE THIS AM, ASSESSMENT PERFORMED AND CHARTED, FALL PRECAUTIONS IN PLACE AND CALL LIGHT IN REACH, PT IS A&O4 AND ON 2L NC PRN, PT DENIES ANY PAIN IS UP AD CARISA, AFIB ON THE MONITOR, HIS GOAL IS TO IMPROVE BREATHING, HOURLY ROUNDS COMPLETED AND WILL FOLLOW WITH PLAN OF CARE, ALL GOALS MET.
[2018-04-02 03:59] VITALS: BP 132/89
[2018-04-02 05:15] LABS: ABSOLUTE LYMPHOCYTES 0.6 thou/uL (0.8-5.3); ABSOLUTE MONOCYTES 0.8 thou/uL (0.0-1.2); BASOPHILS 0.2 %; HEMATOCRIT 38.3 % (42.0-52.0); HEMOGLOBIN 12.8 gm/dL (14.0-18.0); LYMPHOCYTES 5.5 %; MCH 30.8 pg (26.0-34.0); MCHC 33.4 g/dL (28.0-37.0); MCV 92.2 fL (80.0-100.0); MONOCYTES 7.5 %; MPV 8.3 fl. (7.2-11.1); NUCLEATED RBCS 0 /100WBC; PLATELET COUNT* 223 thou/uL (150-400); POLYS 86.8 %; RBC 4.15 mil/uL (4.50-6.00); RDW-CV 15.8 % (10.5-14.5); WBC 10.4 thou/uL (4.0-11.0)
[2018-04-02 05:21] LABS: INR 1.2; PROTIME 11.9 Seconds (9.20-11.50)
[2018-04-02 05:32] LABS: CALCIUM 8.4 mg/dL (8.5-10.1); CREATININE 0.9 mg/dL (0.6-1.3); POTASSIUM 4.5 mmol/L (3.5-5.1)
[2018-04-02 08:00] VITALS: BP 139/61
--- NOTE | 2018-04-02 09:35 | NUR ---
PT IS ABLE TO COMMUNUICATE HIS NEEDS TO STAFF EFFECTIVELY. HE HAS DENIED THE NEED FOR PAIN MEDICATION UP TO THIS TIME. PT CURRENTLY OFF COUMADIN FOR THORACENTESIS PROCEDURE YESTERDAY.
--- NOTE | 2018-04-02 10:03 | NUR ---
ASSUMED CARE OF PT AT 0730. PT RESTING AT EDGE OF BED WAITING FOR BREAKFAST. PT A&0X4, DENIES ANY PAIN OR SHORTNESS OF BREATH AT THIS TIME. PT TRACING AFIB ON THE CABLE ENGINEER OUTSIDE PLANT. RATE IN TO LOW 100'S. PT ON RA SAT 94%. PT STATES HE IS BREATHING MUCH BETTER TODAY AFTER THORACENTESIS YESTERDAY. AWAITING PLEURAL FLUID RESULTS AT THIS TIME. PT UP AD CARISA IN ROOM. PT GOAL FOR TODAY IS INCREASE ACTIVITY AND MONITOR OXYGEN SATURATION AND HEART RATE. AM ASSESSMENT CHARTED. MEDICATIONS PER MAY. PT REPOSITIONS SELF. HOURLY ROUNDING OBSERVED. BED IN LOW POSITION. CALL LIGHT WITHIN REACH. WILL CONTINUE PLAN OF CARE.
[2018-04-02 12:00] VITALS: BP 108/62
[2018-04-02 15:13] LABS: BODY FLUID PH 7.6 (Not Estab.)
[2018-04-02 16:56] VITALS: BP 108/58
--- NOTE | 2018-04-02 18:37 | NUR ---
NO ACUTE CHANGES THROUGHOUT SHIFT. REFER TO CHARTING. PT PROGRESSING TOWARDS GOALS. PT REMAINED ON RA SAT UPPER 90'S. DENIES ANY SHORTNESS OF BREATH. PT CONTINUES TO TRACE AFIB ON THE REWARDS CONSULTANT. RATE IN THE LOW 100'S-110'S. PT TOOK A SHOWER THIS AFTERNOON. AT BEDSIDE AND UPDATED ON CURRENT PLAN OF CARE. PT RESTARTED ON COUMADIN THIS EVENING. MEDICATIONS PER MAY. PT REPOSITIONS SELF. HOURLY ROUNDING OBSERVED. BED IN LOW POSITION. CALL LIGHT WITHIN REACH. WILL CONTINUE PLAN OF CARE.
[2018-04-02 19:20] VITALS: BP 126/81
--- NOTE | 2018-04-02 23:35 | NUR ---
PT ASSESSMENT COMPLETE, REFER TO COMPUTER CHARTING FOR FURTHER DETAILS. PT TRACING AFIB ON MONITOR. PT DENIES PAIN, DARRELL, N/V/D. PT UP ADLIB TO BR WITH STEADY GAIT. PT DENIES ANY FURTHER NEEDS. HOURLY ROUNDING FOR SAFETY. VSS. CLWR.
[2018-04-03] VITALS: BP 130/81
[2018-04-03 04:00] VITALS: BP 104/55
--- NOTE | 2018-04-03 05:33 | NUR ---
PT PROGRESSING TOWARDS GOALS. PT HAS REMAINED ON ROOM AIR WITH ADEQUATE O2 SATS. PT HAS SLEPT COMFORTABLY T/O THIS SHIFT. UP ADLIB TO BR WITH STEADY GAIT. VSS. NO NEW CONCERNS AT THIS TIME.
[2018-04-03 05:36] LABS: HEMATOCRIT 37.7 % (42.0-52.0); HEMOGLOBIN 12.3 gm/dL (14.0-18.0); MCHC 32.7 g/dL (28.0-37.0); MCV 91.9 fL (80.0-100.0); MPV 8.6 fl. (7.2-11.1); RBC 4.1 mil/uL (4.50-6.00); RDW-CV 15.8 % (10.5-14.5); WBC 7.8 thou/uL (4.0-11.0)
[2018-04-03 05:46] LABS: INR 1.1; PROTIME 11.4 Seconds (9.20-11.50)
[2018-04-03 05:49] LABS: CALCIUM 8.1 mg/dL (8.5-10.1); CREATININE 0.8 mg/dL (0.6-1.3); MAGNESIUM 2.1 mg/dL (1.8-2.4); POTASSIUM 3.9 mmol/L (3.5-5.1)
[2018-04-03 08:00] VITALS: BP 124/81
[2018-04-03 08:12] LABS: BODY FLUID AMYLASE 28 U/L (()); BODY FLUID LDH 149 IU/L (()); BODY FLUID PROTEIN 3.6 g/dL (())
[2018-04-03 08:15] LABS: SOURCE THORACENTESIS
[2018-04-03] MEDS ORDERED: LASIX 20 MG TAB20 MG PO (10:52)
[2018-04-03] MEDS ORDERED: PREDNISONE 10 M10 MG PO (10:52)
[2018-04-03] MEDS ORDERED: VENTOLIN HFA 1818 GM INH (10:52)
[2018-04-03] MEDS ORDERED: AZITHROMYCIN 2250 MG PO (10:52)
[2018-04-03 12:00] VITALS: BP 112/54
--- NOTE | 2018-04-03 13:34 | NUR ---
ASSUMED CARE OF PATIENT THIS AM AT 0730. PATIENT IS ALERT AND ORIENTED X 4. HE DENIES PAIN AND DISCOMFORT. TELE SHOWS A FIB. PATIENT EAGER TO DISCHARGE TO HOME. DR IN TO ROUND AND ORDERS WRITTEN. UNSURE AT THIS TIME IF PATIENT IS TO DISCHARGE TODAY. NO FALLS OR INJURY. PATIENT DENIES SOA.
[2018-04-03 16:00] VITALS: BP 99/62
--- NOTE | 2018-04-03 17:33 | 2DMMODE ---
[place] [address] 2 D/M-MODE ECHOCARDIOGRAM Name: JESSY KENT Room: [address] IN [facility]#: [id number] Admission: 03/28/18 Attend Phys: Topher Pérez, Discharge: Date of : 31 Date of Service: 04/03/18 1732 Report #: [id number] THIS REPORT FOR: //name// APPROVED REPORT Study performed: 04/03/2018 14:26:44 EXAM: Comprehensive 2D, Doppler, and color-flow Echocardiogram Patient Location: In-Patient Room #: [facility] BSA: 2.16 HR: 94 bpm BP: 112/54 mmHg Other Information Study Quality: Good Indications Congestive Heart Failure 2D Dimensions IVSd: 13.10 (7-11mm) LVOT Diam: 20.29 (18-24mm) LVDd: 39.57 mm PWd: 8.37 (7-11mm) Ascending Ao: 30.79 (22-36mm) LVDs: 26.88 (25-40mm) Aortic Root: 26.50 mm Volumes Left Atrial Volume (Systole) LA ESV Index: 22.70 mL/m2 Aortic Valve AoV Peak Fredis.: 1.38 m/s AO Peak Gr.: 7.60 mmHg LVOT Max P.58 mmHg AO Mean Gr.: 4.39 mmHg LVOT Mean P.29 mmHg LVOT Max V: 0.80 m/s AO V2 VTI: 21.47 cm LVOT Mean V: 0.52 m/s SUNIL (VTI): 1.95 cm2 LVOT V1 VTI: 12.93 cm Mitral Valve MV Decel. Time: 191.20 ms MV PHT: 55.45 ms MVA (PHT): 3.97 [place]2 [place] [address] 2 D/M-MODE ECHOCARDIOGRAM Name: JESSY KENT Room: [address] IN ..#: [id number] Admission: 03/28/18 Attend Phys: Topher Pérez, Discharge: Date of : 31 Date of Service: 04/03/18 1732 Report #: [id number] TDI Medial E' Fredis.: 0.12 m/s Lateral E' Fredis.: 0.12 m/s Pulmonary Valve PV Peak Fredis.: 0.74 m/s PV Peak Gr.: 2.19 mmHg Tricuspid Valve RAP Estimate: 5.00 mmHg TR Peak Gr.: 20.60 mmHg RVSP: 25.60 mmHg PA Pressure: 25.60 mmHg Left Ventricle The left ventricle is normal size. There is normal LV segmental wall motion. There is normal left ventricular wall thickness. Left ventricular systolic function is normal. The left ventricular ejection fraction is within the normal range. LVEF is 60%. This study is not technically sufficient to allow evaluation of the LV diastolic function due to atrial fibrillation. Right Ventricle Right ventricle is mildly dilated. The right ventricular systolic function is normal. Atria Left atrium is mildly dilated. Right atrium is severely dilated. Aortic Valve Mild aortic valve sclerosis. Bioprosthetic aortic valve is present. No aortic regurgitation is present. There is no aortic valvular stenosis. Mitral Valve There is mitral annular calcification. Mitral valve leaflets are mildly thickened. Mild mitral regurgitation. No evidence of mitral valve stenosis. Tricuspid Valve The tricuspid valve is normal in structure. Moderate tricuspid regurgitation. Pulmonic Valve The pulmonary valve is normal in structure. There is no pulmonic [place] [address] 2 D/M-MODE ECHOCARDIOGRAM Name: EDY KENTO Room: [address]#: [id number] Admission: 03/28/18 Attend Phys: Topher Pérez, Discharge: Date of : 31 Date of Service: 04/03/18 1732 Report #: [id number] Great Vessels The aortic root is normal in size. IVC is normal in size and collapses >50% with inspiration. Pericardium There is no pericardial effusion. <Conclusion> The left ventricle is normal size. There is normal left ventricular wall thickness. Left ventricular systolic function is normal. The left ventricular ejection fraction is within the normal range. LVEF is 60%. This study is not technically sufficient to allow evaluation of the LV diastolic function due to atrial fibrillation. Right ventricle is mildly dilated. Left atrium is mildly dilated. Right atrium is severely dilated. Mild aortic valve sclerosis. No aortic regurgitation is present. There is no aortic valvular stenosis. There is mitral annular calcification. Mitral valve leaflets are mildly thickened. Mild mitral regurgitation. No evidence of mitral valve stenosis. The tricuspid valve is normal in structure. Moderate tricuspid regurgitation. IVC is normal in size and collapses >50% with inspiration. There is no pericardial effusion. There is normal LV segmental wall motion. Bioprosthetic aortic valve is present. <ELECTRONICALLY SIGNED> By: Aaron Arciniega MD, FACC 04/03/18 1732 [id number] Aaron Arciniega MD, FACC /INF
--- NOTE | 2018-04-04 11:09 | PATH ---
[address] [address] PATHOLOGY RPT PROCEDURE Name: JESSY KENT Room: [address] IN [facility]#: [id number] Admission: 03/28/18 Date of : 31 Discharge: 04/03/18 Report #: [id number] Path Case #: [id number] Note [facility] Accession Number: [id number] TESTS RESULT FLAG UNITS REF RANGE LAB Clinician Provided Cytology Information No. of containers..01 Other (Miscellaneous) Source: RIGHT PLEURAL FLUID DIAGNOSIS: 02 RIGHT PLEURAL FLUID INCONCLUSIVE. MESOTHELIAL CELLS, FEW INFLAMMATORY CELLS AND RARE ATYPICAL CELLS, FAVOR REACTIVE MESOTHELIAL CELLS. THIS INTERPRETATION INCLUDES EVALUATION OF A CELL BLOCK. Signed out by: 02 Levi Dejesus MD, Pathologist NPI- [id number] Performed by: 01 Ivana Corbett, Medical Laboratory Technicians ([facility]) Gross description: 01 40 ML, YELLOW, CLEAR /LCS FLAG LEGEND: L-Low Normal,H-High Normal,LL-Alert Low,HH-Alert High <-Panic Low,>-Panic High,A-Abnormal,AA-Critical Abnormal Performed at: [address] [place] [address] Petey Henning MD, [address] [place] [address] [address] [place] [address] Levi Dejesus MD, Specimen Comment: A courtesy copy of this report has been sent to Specimen Comment: [phone]. Specimen Comment: Report sent to Specimen Comment: A duplicate report has been generated due to demographic updates. Performed at: [address], [place], [place] [id number] MD Petey Henning MD Phone: [phone]
== END 2018-04-03 18:10 | disposition home or self-care (01) | DRG 177 ==
LOC: M.ERS 08:55 → M.TBA-ER 11:55 → M.2W 11:55
PROVIDERS: Internal Medicine; Personal Emergency Response Attendant; ADMIT Internal Medicine
PROC: 0W993ZZ Drainage of Right Pleural Cavity, Percutaneous Approach (ICD-10-PCS; principal; 2018-04-01)
DX: J15.6 Pneumonia due to other Gram-negative bacteria (principal); J96.01 Acute respiratory failure with hypoxia; J90 Pleural effusion, not elsewhere classified; J44.1 Chronic obstructive pulmonary disease with (acute) exacerbation; J44.0 Chronic obstructive pulmonary disease with (acute) lower respiratory infection; I48.2 Chronic atrial fibrillation; I50.9 Heart failure, unspecified; J98.4 Other disorders of lung; I07.1 Rheumatic tricuspid insufficiency; E78.5 Hyperlipidemia, unspecified; I11.0 Hypertensive heart disease with heart failure; Z95.2 Presence of prosthetic heart valve; Z88.1 Allergy status to other antibiotic agents; Z88.8 Allergy status to other drugs, medicaments and biological substances; Z87.891 Personal history of nicotine dependence; Z83.6 Family history of other diseases of the respiratory system; Z79.01 Long term (current) use of anticoagulants; Z79.899 Other long term (current) drug therapy; Z79.82 Long term (current) use of aspirin

== ENCOUNTER 2018-04-07 03:05 | Inpatient (IN) | payer MEDICARE, OTHER ==
[~2018-04-07] VITALS: Ht 193 cm; Wt 92.0 kg
[2018-04-07] VITALS (8 sets, daily range): BP systolic 97–146; BP diastolic 50–71
[~2018-04-07 03:05] MED LIST changes: +COUMADIN 5 MG TA5 M1 PO; +CRESTOR20 MG PO; +LASIX 20 MG TAB20 MG PO; +MULTAQ 400 MG400 MG PO; +VENTOLIN HFA 1818 GM INH; +VERAPAMIL ER240 M1 PO; +VITAMIN D1000 UNI1 PO
[2018-04-07] MEDS ORDERED: POTASSIUM20 PO (03:25)
[2018-04-07 03:31] LABS: BE 3.4 mmol/L (-2 to +3); PCO2 47.4 mmHg (35.0-45.0); pH 7.403 (7.340-7.450)
[2018-04-07 03:35] LABS: PO2 42.5 mmHg (75.0-100.0)
[2018-04-07 03:40] LABS: HEMATOCRIT 41.5 % (42.0-52.0); HEMOGLOBIN 13.3 gm/dL (14.0-18.0); MCH 29.6 pg (26.0-34.0); MCHC 32.2 g/dL (28.0-37.0); MCV 92.1 fL (80.0-100.0); MPV 8.3 fl. (7.2-11.1); NUCLEATED RBCS 0 /100WBC; PLATELET COUNT* 192 thou/uL (150-400); RDW-CV 16.1 % (10.5-14.5); WBC 16.3 thou/uL (4.0-11.0)
[2018-04-07 03:48] LABS: ANION GAP 4 mmol/L (7-16); BUN 23 mg/dL (7-18); CALCIUM 8.7 mg/dL (8.5-10.1); CHLORIDE 100 mmol/L (98-107); CO2 36 mmol/L (21-32); CREATININE 1.1 mg/dL (0.6-1.3); GLUCOSE 95 mg/dL (70-99); POTASSIUM 4.3 mmol/L (3.5-5.1); SODIUM 140 mmol/L (136-145)
--- NOTE | 2018-04-07 03:54 | NUR ---
RES[facility] THERAPY HERE FOR BREATHING TREATMENT
[2018-04-07 03:59] LABS: ALBUMIN 3.4 g/dL (3.4-5.0); ALKALINE PHOSPHATASE 79 U/L (46-116); INR 1.6; NT-PRO BRAIN NAT PEPTIDE 1645 pg/mL (<300); PROTIME 16.4 Seconds (9.20-11.50); SGOT 40 U/L (15-37); SGPT 91 U/L (30-65); TOTAL BILIRUBIN 0.5 mg/dL (<0.1-1.0); TOTAL PROTEIN 7.7 g/dL (6.4-8.2); TROPONIN-I LEVEL <0.06 ng/mL (<0.06)
[2018-04-07 04:34] LABS: BE 4.1 mmol/L (-2 to +3); PCO2 47.5 mmHg (35.0-45.0)
[2018-04-07 04:36] LABS: PO2 195.1 mmHg (75.0-100.0)
--- NOTE | 2018-04-07 04:40 | NUR ---
CHANNEL BUSINESS MANAGER NOTIFIED FOR TELE BED PATIENT AND FAMILY AWARE OF ADMISSION
[2018-04-07 05:00] LABS: URINE BILIRUBIN NEGATIVE (Negative); URINE BLOOD NEGATIVE (Negative); URINE CLARITY CLEAR; URINE COLOR YELLOW; URINE GLUCOSE-RANDOM NEGATIVE (Negative); URINE KETONES NEGATIVE (Negative); URINE LEUKOCYTES-REFLEX 1+ (Negative); URINE NITRITE-REFLEX NEGATIVE (Negative); URINE PROTEIN NEGATIVE (Negative); URINE UROBILINOGEN 0.2 E.U./dl (0.2-1.0)
[2018-04-07 05:41] LABS: CASTS None Seen /LPF (None Seen); CRYSTALS None Seen /LPF (None Seen); MUCUS 0-3 Light strn/LPF (None Seen); SQUAMOUS 0-3 Few /LPF (0-3); URINE RBC 0-2 Rare /HPF (0-2); URINE WBC-REFLEX 6-15 Few /HPF (0-5); WBC CLUMPS Few (None Seen)
--- NOTE | 2018-04-07 06:00 | NUR ---
PT RECIEVED FROM ED. ALERT AND ORIENTED X4. SAT MAINTAINED IN 15L IN NRB MASK. CALL LIGHT WITHIN REACH AND BED IN LOW POSITION. DENIES PAIN. SOB PRESENT WITH EXERTION. AFIB ON THE TELE MONITOR. CARDIZEM DRIP RUNNING AT 5ML/HR. VSS AND CHARTED.
[2018-04-07 06:01] LABS: ABSOLUTE LYMPHOCYTES 1.3 thou/uL (0.8-5.3); ABSOLUTE MONOCYTES 0.3 thou/uL (0.0-1.2); ABSOLUTE NEUTROPHILS 14.7 thou/uL (1.6-8.1); ANISOCYTOSIS 1+; PLATELET ESTIMATE ADEQUATE
[2018-04-07 06:02] LABS: TOXIC GRANULATION Occasional
--- NOTE | 2018-04-07 08:38 | NUR ---
DR ROSARIO NOTIFIED OF CONSULT FOR THORACENTESIS
--- NOTE | 2018-04-07 10:00 | NUR ---
PT HAD CT CHEST THIS AM IS NOW ON 2L NC SATURATING 95%, DENIES SOA OF PAIN. WILL CONTINUE TO ASSESS.
--- NOTE | 2018-04-07 12:49 | NUR ---
PT ODD UNIT TO U/S FOR THORACENTESIS PER DR. URRUTIA.
--- NOTE | 2018-04-07 13:51 | EKG ---
[place] [address] ELECTROCARDIOGRAM REPORT Name: JESSY KENT Room: [address] ADM IN M.R.#: [id number] Admission: 04/07/18 Attend Phys: Ollie Al MD Discharge: Date of : 32 Report #: [id number] THIS REPORT FOR: //name// [facility] ED Test Date: 2018-04-07 Test Time: 03:32:33 Pat Name: JESSY ALEXANDERKAYARONALDO Department: Room: [facility] Gender: M Custom Decorating Consultant: GL : 1930 Requested By: Jackie Naranjo Order Number: [id number] MD: Nabor Saldivar Measurements Intervals [place] Rate: 105 P: ME: QRS: 75 QRSD: 91 T: -3 QT: 363 QTc: 480 Interpretive Statements Atrial fibrillation Borderline T abnormalities, inferior leads Borderline prolonged QT interval Compared to ECG 03/28/2018 09:01:20 Atrial flutter no longer present T-wave abnormality still present Electronically Signed On 04-07-2018 13:51:03 [employer] by Nabor Saldivar [email or web address] <ELECTRONICALLY SIGNED> By: Nabor Saldivar MD, FACC 04/07/18 1351 0332 0332 Nabor Saldivar MD, FAC /EPI
--- NOTE | 2018-04-07 15:02 | NUR ---
PT RETURN TO UNIT AROUNF 1330 TODAY. U/S REPORTS 2LITERS PULLED OFF DURING THORACENTESIS. FAMILY AT BEDSIDE AND PT EATING LUNCH. WILL CONTINUE TO ASSESS.
--- NOTE | 2018-04-07 17:45 | NUR ---
SPOKE WITH DR REES AND HUNTER TO GIVE COUMADIN PO.
[2018-04-08] VITALS: BP 123/76
[2018-04-08 03:54] LABS: HEMATOCRIT 37.8 % (42.0-52.0); HEMOGLOBIN 12.2 gm/dL (14.0-18.0); MCH 29.7 pg (26.0-34.0); MCHC 32.2 g/dL (28.0-37.0); MPV 8.8 fl. (7.2-11.1); RBC 4.11 mil/uL (4.50-6.00); RDW-CV 16.3 % (10.5-14.5); WBC 12.6 thou/uL (4.0-11.0)
[2018-04-08 04:00] VITALS: BP 97/56
[2018-04-08 04:10] LABS: ALBUMIN 2.8 g/dL (3.4-5.0); CALCIUM 8.2 mg/dL (8.5-10.1); CREATININE 0.9 mg/dL (0.6-1.3); POTASSIUM 4.6 mmol/L (3.5-5.1); TOTAL BILIRUBIN 0.4 mg/dL (<0.1-1.0); TOTAL PROTEIN 6.8 g/dL (6.4-8.2)
[2018-04-08 04:37] LABS: PROTIME 26.4 Seconds (9.20-11.50)
--- NOTE | 2018-04-08 04:45 | NUR ---
ASSUMED CARE OF PT AFTER REPORT AT 1930. PT A&OX4. VSS. PHYSICAL ASSESSMENT COMPLETED AND CHARTED. PT ON RA WITH 94% O2 SAT. PT TRACING AFIB ON TELE. PT UP ADLIB TO RESTROOM. DENIES ANY PAIN OR DISCOMFORT. PT RESTED WELL ON BED. HOURLY ROUNDING OBSERVED. CALL LIGHT WITHIN REACH. BED IN LOW POSITION.
[2018-04-08 04:46] LABS: INR 2.6
[2018-04-08 08:00] VITALS: BP 129/78
[2018-04-08 11:59] VITALS: BP 120/59
--- NOTE | 2018-04-08 13:09 | NUR ---
Pt is A&O. Resides at home with his . Pt just dc last week. Independent with ADLs. Pt has walker at home that he can use if needed. No hx of HH or SNF. Goal is home at dc. Following.
[2018-04-08 16:00] VITALS: BP 129/63
--- NOTE | 2018-04-08 18:40 | NUR ---
PT ASSESSMENT CHARTED. VSS THROUGHOUT SHIFT. UP AD CARISA IN ROOM. NO COMPLAINTS THROUGHOUT SHIFT.
[2018-04-08 19:51] VITALS: BP 124/75
[2018-04-09] VITALS (9 sets, daily range): BP systolic 104–139; BP diastolic 63–77
--- NOTE | 2018-04-09 04:36 | NUR ---
ASSUMED CARE OF PT AFTER REPORT AT 1930. PT A&OX4. VSS. PHYSICAL ASSESSMENT COMPLETED AND CHARTED .PT ON RA WITH 94% O2 SAT. PT TRACING AFIB ON TELE. PT UPADLIB TO RESTROOM. DENIES ANY PAIN OR DISCOMFORT. PT RESTED WELL ON BED. HOURLY ROUNDING OBSERVED. CALL LIGHT WITHIN REACH. BED IN LOW POSITION.
[2018-04-09 05:22] LABS: HEMATOCRIT 36.7 % (42.0-52.0); MCHC 32.8 g/dL (28.0-37.0); MCV 91.4 fL (80.0-100.0); MPV 8.9 fl. (7.2-11.1); RBC 4.02 mil/uL (4.50-6.00); RDW-CV 15.6 % (10.5-14.5); WBC 17.9 thou/uL (4.0-11.0)
[2018-04-09 05:25] LABS: CALCIUM 8.6 mg/dL (8.5-10.1); CREATININE 0.9 mg/dL (0.6-1.3); INR 3.2; POTASSIUM 4.8 mmol/L (3.5-5.1); PROTIME 32.2 Seconds (9.20-11.50)
--- NOTE | 2018-04-09 09:15 | NUR ---
ASSUMED PT. CARE AND RECEIVED REPORT AT 0730. PT A/OX4, VSS, MONITOR ON TRACING AFIB. PT. DENIES CURRENT PAIN, AND STATES BREATHING IS IMPROVED SINCE ADMISSION. ON RA @ 95%. FULL ASSESSMENT COMPLETED, REFER TO CHARTING. PT. WITH GOOD APPETITE AT BREAKFAST. CALL LIGHT IN REACH, WILL CONTINUE WITH PLAN OF CARE.
--- NOTE | 2018-04-09 11:13 | CON ---
[address] [address] CONSULTATION Name: CATHERINEKAYAEDY HIGGINSO Room: [address] IN M.R.#: [id number] Admission: 04/07/18 Attend Phys: Ollie Al MD Discharge: Date of : 31 Report #: [id number] THIS REPORT FOR: //name// CC: Ollie Romero DATE OF SERVICE: 04/09/2018 INFECTIOUS DISEASE CONSULTATION ATTENDING PHYSICIAN: Ollie Al M.D. REASON FOR EVALUATION: Recurrent right-sided pleural effusion in the setting pneumonitis. HISTORY OF PRESENT ILLNESS: Chart reviewed, the patient examined. This is an 88-year-old gentleman with known chronic obstructive pulmonary disease, who has been hospitalized for the second time in the last couple of weeks with complaints of progressive dyspnea. He has been hospitalized and underwent thoracentesis roughly a week ago, removed about 1.5 liters of fluid. So far, this microbiology testing has been unremarkable. He did improve in a brief period of time and was discharged, only to return on 04/07/2018 with progressive shortness of breath. At this point, he underwent second thoracentesis, took off 2 liters, again both on the right side. He denies any particular fevers. He has had some weight loss since July of this year at 45-50 pounds. He does report a bit of a cough with blood-tinged sputum. He has been empirically started on antimicrobial therapy, including ceftriaxone and vancomycin. 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 He does note [place]. He would drink unpasteurized milk. He denies any significant gastrointestinal-related complaints. ALLERGIES: CIPROFLOXACIN, OMEPRAZOLE AND SIMVASTATIN. CURRENT MEDICATIONS: Include prednisone, vancomycin, verapamil, atorvastatin, warfarin, ipratropium and albuterol inhaler, ceftriaxone, furosemide, potassium chloride, cholecalciferol, aspirin, famotidine, Dronedarone and levalbuterol. PAST MEDICAL HISTORY: Above-noted COPD, history of atrial fibrillation, hypertension, hyperlipidemia and valve replacement. SOCIAL HISTORY: Former smoker, occasional ethanol. FAMILY HISTORY: Noncontributory. REVIEW OF SYSTEMS: Otherwise unremarkable. A 10-point [place] [address] CONSULTATION Name: JESSY KENT Room: [address]#: [id number] Admission: 04/07/18 Attend Phys: Ollie Al MD Discharge: Date of : 31 Report #: [id number] otherwise noted in the history of present illness. PHYSICAL EXAMINATION: GENERAL: He is pleasant, cooperative, appears slightly undernourished. He is in mild distress. He is not having significant coughing. He states his speech has improved. He is able to complete sentence now, as he could not before due to his dyspnea. HEENT: Unremarkable. Extraocular muscles intact. No oral lesions. NECK: Supple. LUNGS: Scattered breath sounds, somewhat diminished overall. HEART: Appears to be regular. I do not appreciate a murmur. ABDOMEN: Soft, nontender. There is no distention. GENITOURINARY: Deferred. RECTAL: Deferred. LABORATORY DATA: Prealbumin of 21.1. Electrolytes: Sodium 136, potassium 4.8, chloride 100, bicarbonate is 33, BUN and creatinine 20 and 0.9, anion gap of 3 and estimated GFR of 80. CBC: White count of 17.9, H and H 12.0 and 36.7 and platelets of 156,000. Urine culture is pending. MRSA PCR was negative. Electrolytes: Sodium 138, potassium 4.6, chloride 100 and bicarbonate is 34. LFTs unremarkable. Albumin of 2.8. Total protein 6.8. Reviewed ultrasound-guided thoracentesis. CTA chest PE protocol, no CT evidence of pulmonary embolus, increasing infiltrates in the superior left lower lobe with persistent bilateral lobe infiltrates, most prominent in the right lower lobe, with consolidation of the right lower lobe infiltrate. ASSESSMENT AND PLAN: Recurrent pulmonary effusions in the setting of likely pneumonitis. He does have history of smoking, history of TB. We will try to collect some sputum for AFB. I think I will go ahead and I think put him in isolation. We will discuss with Pulmonary. May need bronchoscopy. At this point, we will keep him on empiric antibacterial therapy. <ELECTRONICALLY SIGNED> By: Maximus Navarrete MD 04/09/18 1113 0940 [id number] francisco Navarrete MD /nt
--- NOTE | 2018-04-09 12:37 | NUR ---
RECEIVED CALL FROM RADIOLOGIST THAT PT. HAD MODERATE RIGHT PNEUMO. HE STATED HE WOULD CONTACT DR. RINALDI TO DISCUSS. YOUCALLMD SENT TO DR. RINALDI BY THIS RN WELL TO INFORM OF FINDING.
--- NOTE | 2018-04-09 19:53 | NUR ---
PT. MOVED TO ROOM 233 FOR AIRBORNE PRECAUTIONS IMPLEMENTED BY DR. PELAYO. PT. AND EDUCATED ON CHANGE. PT. AND INFORMED OF XRAY FINDINGS AND NEED FOR CHEST TUBE PLACEMENT. PT. WENT TO IR AT APPROX. 1500, RETURNED AT APPROX. 1615. THERE WAS SOME MINOR BLOOD DRAINAGE TO GAUZE AT INSERTION SITE, AREA MARKED TO WATCH, CHEST TUBE PLACED ON SUCTION PER ORDERS WITH APPROX. 400 MLS OUT QUICKLY. CONTINUED TO MONITOR PT. AT APPROX. 1720 IT WAS NOTED THAT CHEST TUBE DRESSING WAS SATURATED AND LEAKING BLOOD. IR TECH ON UNIT, NOTIFIED OF NEED TO SPEAK WITH DR. ROSARIO. SPOKE TO DR. ROSARIO VIA PHONE, ORDER RECEIVED TO HOLD PRESSURE AND CONTACT HIMS FOR POSSIBLE INR REVERSAL. PRESSURE HELD AND INCLUSIVE DRESSING REPLACED. DR. MATHEWS NOTIFIED AND ORDER RECEIVED FOR 2 UNITS OF FFP (IF OKAY WITH CV- SPOKE WITH DR. LÓPEZ AND OKAY WITH GETTING FFP WITH AFIB/VALVE REPLACEMENT). ALSO RECEIVED ORDER TO CONSULT SURGERY FOR POSSIBLE INTERVENTION/FURTHER SUTURES AT CHEST TUBE SITE. DR. ARELY PICKARD IN FOR CONSULT. PRESSURE HELD AGAIN AND NEW PRESSURE DRESSING PLACED WITH DR. PICKARD. PT. LEFT UNIT AT APPROX. [address] PER ORDERS. REPORT GIVEN TO BOBBI RHOADES AT BEDSIDE TO CONTINUE CARE. PT. WAS GIVEN UPDATE PRIOR TO LEAVING ON PLAN OF CARE FOR BLOOD PRODUCTS.
[2018-04-10] VITALS: BP 94/64
--- NOTE | 2018-04-10 03:20 | NUR ---
ASSUMED CARE OF PT AT 1900. PT IS ALERT AND ORIENTED. VSS. PERRLA. NO COMPLAINTS OF PAIN. CHEST TUBE IS IN PLACE ON LEFT LATERAL CHEST. CHEST TUBE APPEARS TO BE FUNCTIONING WELL. NO LEAKS DETECTED. SUCTION IS SET AT [id number]. LARGE AMOUNT OF SEROUS ANGUOUS DRAINAGE. HOWEVER, PT IS BLEEDING AROUND CHEST TUBE SITE. WE HAVE GIVEN PT 2 UNITS OF FFP'S AND HELD PRESSURE FOR 15 TO 20 MINUTES. BLEEDING HAS SLOWED BUT STILL CONTINUES. PT IS IN A FIB ON THE TELEMETRY. PT IS RESTING COMFORTABLY IN BED. RESPIRATIONS ARE EVEN AND NONLABORED. WILL CONTINUE TO MONITOR PT.
[2018-04-10 04:00] VITALS: BP 109/74
[2018-04-10 04:57] LABS: HEMATOCRIT 32.1 % (42.0-52.0); HEMOGLOBIN 10.6 gm/dL (14.0-18.0); MCH 30.3 pg (26.0-34.0); MPV 8.5 fl. (7.2-11.1); NUCLEATED RBCS 0 /100WBC; PLATELET COUNT* 144 thou/uL (150-400); RBC 3.49 mil/uL (4.50-6.00); RDW-CV 16.5 % (10.5-14.5); WBC 13.8 thou/uL (4.0-11.0)
[2018-04-10 05:07] LABS: CALCIUM 7.9 mg/dL (8.5-10.1); CREATININE 0.8 mg/dL (0.6-1.3); POTASSIUM 4.7 mmol/L (3.5-5.1)
[2018-04-10 05:42] LABS: ABSOLUTE MONOCYTES 0.6 thou/uL (0.0-1.2); ABSOLUTE NEUTROPHILS 12.3 thou/uL (1.6-8.1); PLATELET ESTIMATE DECREASED
[2018-04-10 05:43] LABS: ANISOCYTOSIS 1+; POIKILOCYTOSIS 1+
[2018-04-10 08:30] VITALS: BP 105/58
--- NOTE | 2018-04-10 08:30 | NUR ---
ASSUMED PT. CARE AND RECEIVED REPORT AT 0730. PT A/OX4, VSS, MONITOR ON TRACING AFIB. PT. DENIES CURRENT PAIN/SOB. ON 1L NC @98%. FULL ASSESMENT COMPLETED, REFER TO CHARTING. CHEST TUBE REMAINS IN PLACE, CONTINUES TO BLEED AROUND INSERTION SITE, DRESSING CHANGED BY NOC RN AT 0700 AND REINFORCED DURING A.M ASSESSMENT BY THIS RN. CONTACTED IR TO INFORM RADIOLOGIST OF PT. CONSISTANT BLEEDING THROUGH THE NIGHT. ORDER RECEIVED FOR 1 UNIT FFP AND REPEAT INR POST. PT. AND FAMILY UPDATED ON PLAN OF CARE. IR RN UP TO FLOOR TO ASSESS AND REDRESS CHEST TUBE. CALL LIGHT IN REACH, WILL CONTINUE WITH PLAN OF CARE.
[2018-04-10 10:55] VITALS: BP 100/65; BP 98/48
[2018-04-10 11:10] LABS: BODY FLUID PROTEIN 3.1 g/dL (())
[2018-04-10 12:55] LABS: INR 1.7; PROTIME 17.1 Seconds (9.20-11.50)
--- NOTE | 2018-04-10 14:54 | CON ---
[address] [address] CONSULTATION Name: JESSY KENT Room: [place] [address] ADM IN M.R.#: [id number] Admission: 04/07/18 Attend Phys: Ollie Al MD Discharge: Date of : 31 Report #: [id number] THIS REPORT FOR: //name// CC: Ollie Romero REASON FOR CONSULTATION: Pulmonary infiltrate and shortness of breath. REFERRING PHYSICIAN: Maximus Navarrete M.D. HISTORY OF PRESENT ILLNESS: This is an 88-year-old male patient with shortness of breath for almost 24 hours prior to hospitalization. He was hospitalized at this facility back on 03/28/2018. At that time, he had a pleural effusion with shortness of breath and he was treated for COPD exacerbation in addition to CHF exacerbation. He had thoracentesis. That pleural fluid analysis was suggestive for transudative fluid. He was treated as CHF. His echocardiogram at that time demonstrated a preserved EF of 60% and he was found to be in AFib. He was discharged home after thoracentesis in improved medical condition. He went to rehab, then from rehab to home. Then, he woke up at night with shortness of breath, although he did not have cough or wheezes. Upon arrival, he underwent thoracentesis, where he had almost 2000 mL of fluid aspirated that was sent to the lab, but no analysis was done yet. His CT scan of the chest demonstrated infiltrate in the left lower lobe, which is new compared to the CT scan that was done back on 03/28/2018, in addition to recurrence of the pleural effusion. Of note, he has a background history of presumed TB, treated with oral treatment back in the 1960s and he ended up with restrictive lung disease and pleural calcification on the left side. Also he told me he had some procedure at that time for biopsy, what he described as mediastinoscopy. When I saw him this morning, he looked overall comfortable, in no distress and he was on room air. PAST MEDICAL HISTORY: Atrial fibrillation, anticoagulation by Coumadin; history of COPD; history of smoking; history of compression fracture; history of hyperlipidemia and valve replacement surgery. PAST SURGICAL HISTORY: Valve replacement surgery and mediastinoscopy. HOME MEDICATIONS: Aspirin, verapamil, amiodarone, lovastatin, Coumadin and Spiriva. Noted also he was discharged on Lasix and tapering dose of steroids. FAMILY HISTORY: Reviewed with the patient, noncontributory. ALLERGIES: CIPROFLOXACIN, OMEPRAZOLE AND SIMVASTATIN. REVIEW OF SYSTEMS: A 12-point review of systems reviewed with the patient and negative, other than as mentioned above. He has no lower extremity edema. PHYSICAL EXAMINATION: [place] [address] CONSULTATION Name: JESSY KENT Room: [address] IN .R.#: [id number] Admission: 04/07/18 Attend Phys: Ollie Al MD Discharge: Date of : 31 Report #: [id number] VITAL SIGNS: On examination, during my visit, he was on room air with saturation more than 90%, blood pressure 127/77, breathing 19 times a minute, pulse rate of 100 and temperature 36.3. GENERAL: Awake, alert, oriented, speaks in full sentences, not in distress. HEENT: Oral cavity, moist mucous membrane. Mallampati of 2. Pupils reactive to light. External ears look healthy and normal. NECK: No lymphadenopathy. Neck full range of movement. CHEST: Diminished air movement at the bases. Some rhonchi. No wheezes. HEART: S1, S2. No murmur, no gallop. ABDOMEN: Benign, soft, lax, nontender. EXTREMITIES: Lower extremity, no edema. NEUROLOGIC: Moving 4 extremities spontaneously. No focal weakness. Cranial nerves grossly normal. LYMPHATICS: No palpable lymph nodes. SKIN: Normal for age and race. No rash. LABORATORY DATA: His admission labs, white blood count 16.3, hemoglobin of 13.3 and platelet of 192,000. His INR was 1.6, today 3.2. ABG 7.41/47/195. His respiratory virus panel is pending. His BNP is elevated at 1645 with a creatinine of 0.9 and BUN of 21. IMPRESSION: 1. Acute respiratory failure, improving. 2. Pleural effusion, recurrent. 3. History of tuberculosis. 4. Pulmonary infiltrate. 5. Pneumonia. PLAN: The previous pleural fluid analysis was transudative. We will do a repeat analysis again today. We will do the LDH protein, cultures and repeat the gram stain in addition to TB stain and adenosine deaminase. He definitely had a new infiltrate on his CT scan. I would continue antibiotics. He is not having active wheezes; p.o. steroids will be appropriate. To continue scheduled nebulization treatment. Discussed with the patient. We will follow along with you. <ELECTRONICALLY SIGNED> By: Mikki Buckley MD 04/10/18 1454 0942 [id number] Campos MD /nt
[2018-04-10 15:54] VITALS: BP 98/60
--- NOTE | 2018-04-10 19:53 | NUR ---
PT. CONTINUED TO HAVE CONSISTANT BLEEDING THROUGH OUT THE MORNING. 1 UNIT FFP GIVEN ALONG WITH VIT K INFUSION. PT. WAS TAKEN BACK DOWN TO IR AND HAD NEW, LARGER CHEST TUBE PLACED THIS AFTERNOON. SINCE THIS TIME DRESSING HAS REMAINED INTACT WITH SMALL QUARTER SIZED BLOOD SPOT ONLY. PT. HAS NOT HAD SOB TODAY, AND HAS REMAINED STABLE THROUGH OUT. HOURLY ROUNDING COMPLETED THROUGH OUT THE DAY FOR PT. SAFETY. PT. PT. SON MARIANELA REQUESTED DR. RINALDI PHONE HIM TODAY. DR. RINALDI PROVIDED WITH PHONE NUMBER TO CALL.
[2018-04-10 20:00] VITALS: BP 100/55
--- NOTE | 2018-04-10 22:13 | NUR ---
PATIENT ACCIDENTALLY DISCONTINUED CHEST TUBE WHILE GETTING OUT OF BED WITHOUT ASSISTANCE AT APPROXIMATELY 2115. CHEST TUBE SITE SEALED APPROPRIATELY. STAT CHEST XRAY COMPLETED AND RESULTS CALLED TO DR. CHRISTIANSEN, INTERVENTIONAL RADIOLOGIST CO OP. ORDERS RECEIVED FOR REPEAT CHEST XRAY IN AM AT 0700. PATIENT DENIES DISTRESS. O2 SATS 98% ON ROOM AIR. CONTINUOUS O2 MONITOR IN PLACE. PATIENT REMINDED TO CALL FOR ASSISTANCE BEFORE GETTING OUT OF BED. PATIENT VERBALIZES UNDERSTANDING. BED ALARM IN PLACE. CALL LIGHT WITHIN REACH.
[2018-04-10 22:59] LABS: SOURCE PLEURAL
[2018-04-10 23:00] LABS: SOURCE PLEURAL
[2018-04-11] VITALS: BP 118/62
[2018-04-11 04:00] VITALS: BP 105/81
[2018-04-11 04:05] LABS: ADENOVIRUS Negative (Negative); INFLUENZA A Negative (Negative); INFLUENZA B Negative (Negative); METAPNEUMOVIRUS Negative (Negative); PARAINFLUENZA 1 Negative (Negative); PARAINFLUENZA 2 Negative (Negative); PARAINFLUENZA 3 Negative (Negative); RHINOVIRUS Negative (Negative); RSV A Negative (Negative); RSV B Negative (Negative)
[2018-04-11 05:22] LABS: INR 1.2; PROTIME 12.6 Seconds (9.20-11.50)
[2018-04-11 05:29] LABS: ABSOLUTE EOSINOPHILS 0.1 thou/uL (0.0-0.7); ABSOLUTE LYMPHOCYTES 0.8 thou/uL (0.8-5.3); ABSOLUTE MONOCYTES 0.7 thou/uL (0.0-1.2); ABSOLUTE NEUTROPHILS 9.9 thou/uL (1.6-8.1); BASOPHILS 0.1 %; EOSINOPHILS 0.8 %; HEMATOCRIT 25.9 % (42.0-52.0); LYMPHOCYTES 6.6 %; MCH 30.7 pg (26.0-34.0); MCHC 33.4 g/dL (28.0-37.0); MCV 91.9 fL (80.0-100.0); MONOCYTES 6.3 %; MPV 8.6 fl. (7.2-11.1); NUCLEATED RBCS 0 /100WBC; PLATELET COUNT* 124 thou/uL (150-400); POLYS 86.2 %; RBC 2.82 mil/uL (4.50-6.00); RDW-CV 15.9 % (10.5-14.5); WBC 11.5 thou/uL (4.0-11.0)
[2018-04-11 05:32] LABS: HEMOGLOBIN 8.6 gm/dL (14.0-18.0)
[2018-04-11 05:46] LABS: CALCIUM 7.5 mg/dL (8.5-10.1); CREATININE 0.7 mg/dL (0.6-1.3); POTASSIUM 4.2 mmol/L (3.5-5.1)
--- NOTE | 2018-04-11 06:58 | NUR ---
NO DESATURATIONS NOR RESPIRATORY DISTRESS NOTED FOR THE REST OF THE SHIFT, AFTER CHEST TUBE REMOVAL.
[2018-04-11 08:20] VITALS: BP 101/59
[2018-04-11 09:12] LABS: BODY FLUID LDH 194 IU/L (())
[2018-04-11 12:00] VITALS: BP 90/53
[2018-04-11 16:00] VITALS: BP 97/68
--- NOTE | 2018-04-11 18:00 | NUR ---
PT VSS WITH HR IN THE 120-140'S & SOFT BP'S-TEAM AWARE. PT AFIB ON THE MONITOR AND TEAM OKAY WITH HOLDING ANTICOAGULANTS AT THIS TIME. PT TOLERATING IV ABS THIS SHIFT AND NO C/O CHEST PAIN RELATED TO PNEUMO AND REMOVED CHEST TUBE THIS SHIFT. PT COMPLIANT WITH CALLING OUT FOR AMBULATORY ASSISTANCE. PT VANC TROUGH WAS THERAPEUTIC. DR GRANT WITH IR CALLED EARLY THIS MORNING AND HE STATED THAT LONG PT DID NOT HAVE ANY CHANGES IN RESPIRATORY STATUS WE WERE FINE TO HOLD OFF ANY FURTHER INTERVENTION-HE LEFT HIS CALL BACK NUMBER OF [phone] FOR ANY FOLLOW UP QUESTIONS. DR MEDINA GAVE A VERBAL ORDER TO KEEP THE PATIENT ON 2L PER NC UNTIL FURTHER NOTICE. SPOKE WITH DOYLE WITH INFECTION CONTROL AND SHE STATED THAT THE ONLY PRECAUTIONS THAT NEEDS TO BE MAINTAINED IS THE N95 MASK AT THIS TIME AND ONCE 3 NEGATIVE SPUTUM SPECIMENS HAVE BEEN RECIEVED THE PT CAN BE REMOVED FROM TB AIRBORNE PRECAUTIONS. DOYLE ALSO STATED IT WAS FINE TO REUSE THE MASKS FOR EACH INDIVIDUAL LONG THEY ARE NOT SOILED AND ARE CHANGED Q SHIFT. DR PELAYO STATED HE HAD NOT SEEN ANY RESULTS FROM ANY SPUTUM CULTURES TO DATE AND THAT HE HAD BEEN FOLLOWING UP DAILY WITH LAB. FOLLOWED UP WITH JULIET LOZADA AT 1809 REGARDING THIS ISSUE AND THEY STATED THEY ONLY SEE THE PENDING RESULTS WELL AND THAT THESE RESULTS OFTEN TAKE WEEKS TO RESULT.
[2018-04-11 20:00] VITALS: BP 104/61
[2018-04-12] VITALS: BP 103/57
[2018-04-12 04:00] VITALS: BP 110/74
--- NOTE | 2018-04-12 05:05 | NUR ---
ASSUMED PT CARE @1930. PT AWAKE AND ORIENTED X4. NOT IN DISTRESS. O2 @ 2L PER NC, O2 SAT IS AT 97-98. GASOLINE PLANT OPERATOR IN PLACE, TRACING AFIB AT 120's TO 130's, DR LÓPEZ INFORMED THROUGH ANSWERING MACHINE AT APPROX 2319. PT REMAINED STABLE AND DENIES CHEST PAIN. CALL LIGHT WITHIN REACH. HOURLY ROUNDING DONE FOR SAFETY.
[2018-04-12 05:06] LABS: HEMATOCRIT 26.3 % (42.0-52.0); HEMOGLOBIN 8.6 gm/dL (14.0-18.0); MCHC 32.7 g/dL (28.0-37.0); MCV 91.7 fL (80.0-100.0); MPV 7.9 fl. (7.2-11.1); RBC 2.87 mil/uL (4.50-6.00); RDW-CV 15.8 % (10.5-14.5)
[2018-04-12 05:10] LABS: CALCIUM 7.7 mg/dL (8.5-10.1); CREATININE 0.8 mg/dL (0.6-1.3); POTASSIUM 4.1 mmol/L (3.5-5.1)
[2018-04-12 05:20] LABS: INR 1.1; PROTIME 11.6 Seconds (9.20-11.50)
--- NOTE | 2018-04-12 07:57 | PATH ---
[address] [address] PATHOLOGY RPT PROCEDURE Name: JESSY KENT Room: [place] [address] ADM IN .R.#: [id number] Admission: 04/07/18 Date of : 31 Discharge: Report #: [id number] Path Case #: [id number] Note [facility] Accession Number: [id number] TESTS RESULT FLAG UNITS REF RANGE LAB Clinician Provided Cytology Information No. of containers..01 Other (Miscellaneous) Source: RIGHT PLEURAL FLUID DIAGNOSIS: 02 RIGHT PLEURAL FLUID INCONCLUSIVE. LOW CELLULARITY WITH FEW ATYPICAL, SINGLE CELLS AND BACKGROUND OF FEW REACTIVE MESOTHELIAL CELLS, AND INFLAMMATORY CELLS. THIS INTERPRETATION INCLUDES EVALUATION OF A CELL BLOCK. Signed out by: 02 Levi Dejesus MD, Pathologist NPI- [id number] Performed by: 01 Uzair Coleman, Net Finisher ([facility]) Gross description: 01 45 ML, YELLOW, CLOUDY /LCS FLAG LEGEND: L-Low Normal,H-High Normal,LL-Alert Low,HH-Alert High <-Panic Low,>-Panic High,A-Abnormal,AA-Critical Abnormal Performed at: [address] [place] [address] Petey Henning MD, [address] [place] [id number] Levi Dejesus MD, Specimen Comment: A courtesy copy of this report has been sent to Specimen Comment: [phone]. Specimen Comment: Report sent to Performed at: [address], [place], [place] [id number] MD Petey Henning MD Phone: [phone]
[2018-04-12 08:10] VITALS: BP 98/55
[2018-04-12 11:46] VITALS: BP 86/52
--- NOTE | 2018-04-12 13:05 | NUR ---
PT HAS BEEN HYPOTENSIVE THIS SHIFT, A-FIB ON MONITOR HEART RATE RANGING FROM 120-140 WITH INCREASED RATE TO 160S WITH EXERTION, TEAM AWARE. PRODUCTION RECORDER[employer]S [employer] GERALD STATED THEY WOULD FOLLOW UP WITH DR MEZA AND DR RINALDI NOTIFIED, NO NEW ORDERS AT THIS TIME. PT TO HAVE CHEST TUBE PLACED AROUND 1300 IN IR, PT AND FAMILY AGREEABLE TO PLAN. PT REMOVED FROM ISOLATION PRECAUTIONS PER DR PELAYO. WILL ATTEMPT TO TRANSFER PT TO DIFFERENT ROOM CLOSER TO NURSES STATION FOR CHEST TUBE AND AMBULATION NEEDS AND WILL USE ALL FOUR BEDRAILS TO ASSIST PT WITH CALLING OUT FOR AMBULATION NEEDS AND CHEST TUBE PRECAUTIONS. PT AND FAMILY AGREEABLE TO THIS PLAN. DR MEDINA ORDERED 02 TO BE MAINTAINED AT 2-3L PER NC, SPECIMEN CUPS AT BEDSIDE FOR SPUTEM SAMPLES PRN. FALL PRECAUTIONS ARE IN PLACE.
--- NOTE | 2018-04-12 13:38 | CON ---
[address] [address] CONSULTATION Name: JESSY KENT Room: [place] [address] ADM IN M.R.#: [id number] Admission: 04/07/18 Attend Phys: Ollie Al MD Discharge: Date of : 31 Report #: [id number] THIS REPORT FOR: //name// CC: Ollie Romero PRIMARY CARE PHYSICIAN: Dr. Miguel Montgomery. TAWER: Dr. Singh. CHIEF COMPLAINT: Shortness of breath. HISTORY OF PRESENT ILLNESS: The patient is an 88-year-old man with a history of heart disease and atrial fibrillation who presents with increasing shortness of breath over the last several days. He was found to have pleural effusions and volume overload on x-ray. He was noted to be in atrial fibrillation, which is a chronic problem with initially elevated ventricular responses. This is chronic, ongoing cardiovascular issue for this particular patient. He had been on amiodarone and had prior manager cable convert him in the past and currently his plan with his rfid analyst at [facility] apparently is for him to be loaded with dronedarone and plan for an outpatient cardioversion. He was just recently in the hospital at [facility] with what sounds like congestive heart failure. Records are not available at this time. He was discharged with instructions to take Lasix and potassium apparently based on his weight, but had not really been taking it. He has a mild oxygen requirement of 2-3 liters, but is respiring comfortably in his bed. He really does not feel his atrial fibrillation. He has minimal complaints of palpitations. PAST MEDICAL HISTORY: He has history of TAVR 1-1/2 years ago. He has atrial fibrillation, which seemingly is paroxysmal. He has no documented history of prior GA, but records are pending. He has hypertension, chronic obstructive pulmonary disease. HOME MEDICATIONS: Include aspirin, warfarin 5 mg daily, rosuvastatin 20 mg at bedtime, verapamil 240 mg at bedtime, dronedarone 400 mg p.o. b.i.d., potassium chloride 20 mEq daily, glucosamine, cholecalciferol. ALLERGIES: He has allergies to CIPRO, SIMVASTATIN, OMEPRAZOLE, LEVOFLOXACIN. SOCIAL HISTORY: He is a nonsmoker actively but does drink occasionally. REVIEW OF SYSTEMS: GENERAL: No fevers or chills. CARDIOVASCULAR: Denies chest pressure or tightness[place] [address] CONSULTATION Name: JESSY KENT Room: [address]#: [id number] Admission: 04/07/18 Attend Phys: Ollie Al MD Discharge: Date of : 31 Report #: [id number] exertion. Positive orthopnea. MUSCULOSKELETAL: No significant edema. NEUROLOGIC: No headaches or blurry vision. SKIN: No rashes. GENERAL: No fevers or chills. No falls. HEMATOLOGIC: No anemia or bleeding disorders. PHYSICAL EXAMINATION: VITAL SIGNS: Blood pressures in the 140s/70s. His weight on admission was 207 pounds, O2 initial oxygen requirement was 4 liters. GENERAL: He is alert, in no apparent distress. EYES: EOMs are intact. No facial asymmetry. NECK: Supple. No jugular venous distention. CARDIOVASCULAR: Irregular. Faint systolic murmur. LUNGS: Diminished breath sounds. EXTREMITIES: There is no peripheral edema. ABDOMEN: Nontender, nondistended. X-RAY: Chest CTA demonstrated no evidence of pulmonary embolus. Persistent moderate right-sided pleural effusion, persistent bilateral lower lobe infiltrates, right greater than left with consolidation, cardiomegaly. ECG demonstrated atrial fibrillation, no dynamic ST-T wave abnormalities, nonspecific flattening. Sodium 140, potassium 4.3, chloride 100, CO2 36, BUN is 23, creatinine is 1.1, AST is 40, ALT is 291. Troponin I is 0.06. NT-proBNP is 1645. INR is 1.6. Hemoglobin is 13.3. IMPRESSION: 1. Atrial fibrillation, paroxysmal. At this point in time, I would continue dronedarone and calcium channel blockers for rate control and routine followup with his usual rfid analyst. 2. Acute diastolic heart failure. I would treat it with Lasix. 3. Status post transcatheter aortic valve replacement. 4. Warfarin anticoagulation. He seems to have done well with this, but we will hold it for a thoracentesis. I instructed him to take his Lasix and potassium at least every other day routinely until followup with his usual manager cable. <ELECTRONICALLY SIGNED> By: Nabor Saldivar MD, FACC 04/12/18 1338 1139 [id number] Saldivar MD, FACC /nt
[2018-04-12 15:31] VITALS: BP 97/58
[2018-04-12 20:00] VITALS: BP 90/49
[2018-04-13] VITALS: BP 95/52
[2018-04-13 04:00] VITALS: BP 102/60
--- NOTE | 2018-04-13 04:40 | NUR ---
PATIENT RESTED IN BED, NO ACUTE CHANGES. PATIENT DID NOT SHOW SIGNS OF SOA OR DISTRESS. FALL PRECAUTIONS IN PLACE, CALL LIGHT WITH IN REACH, HOURLY ROUNDING OBSERVED, BED ALARM ON.
[2018-04-13 05:54] LABS: INR 1.1; PROTIME 11.1 Seconds (9.20-11.50)
[2018-04-13 08:25] VITALS: BP 89/47
[2018-04-13 11:38] VITALS: BP 91/52
[2018-04-13 14:05] LABS: HEMATOCRIT 27.2 % (42.0-52.0); MCH 30.4 pg (26.0-34.0); MPV 8.4 fl. (7.2-11.1); NUCLEATED RBCS 0 /100WBC; PLATELET COUNT* 156 thou/uL (150-400); RBC 2.96 mil/uL (4.50-6.00); RDW-CV 15.8 % (10.5-14.5); WBC 13.2 thou/uL (4.0-11.0)
[2018-04-13 14:18] LABS: ALBUMIN 2.4 g/dL (3.4-5.0); CREATININE 0.9 mg/dL (0.6-1.3); MAGNESIUM 1.9 mg/dL (1.8-2.4); POTASSIUM 4.3 mmol/L (3.5-5.1); TOTAL BILIRUBIN 0.3 mg/dL (<0.1-1.0); TOTAL PROTEIN 5.8 g/dL (6.4-8.2)
[2018-04-13 14:55] LABS: ABSOLUTE LYMPHOCYTES 0.4 thou/uL (0.8-5.3); ABSOLUTE NEUTROPHILS 12.8 thou/uL (1.6-8.1); ANISOCYTOSIS Occasional; PLATELET ESTIMATE ADEQUATE
[2018-04-13 15:57] VITALS: BP 87/40
--- NOTE | 2018-04-13 16:18 | NUR ---
PT PROGRESSING TOWARDS GOALS THIS SHIFT. CONTINUES ON CARDIZEM GTT AT 10ML/HR PER DR. MEZA. CARDIOLOGISTS AWARE OF PT'S SOFT BLOOD PRESSURE READINGS. PT MAINTAINING OXYGEN >92% ON 2-3L O2/NC. NO OTHER CONCERNS AT THIS TIME. CLWR. WCTM.
[2018-04-13 20:00] VITALS: BP 107/49
[2018-04-14] VITALS: BP 103/50
--- NOTE | 2018-04-14 00:57 | NUR ---
PATIENT RESTED IN BED, NO ACUTE CHANGES. PATIENT DID NOT SHOW SIGNS OF DISTRESS OR SOA. FALL PRECAUTIONS IN PLACE, CALL LIGHT WITHIN REACH, HOURLY ROUNDING OBSERVED, BED ALARM ON.
[2018-04-14 04:00] VITALS: BP 100/54
[2018-04-14 05:17] LABS: ABSOLUTE EOSINOPHILS 0.2 thou/uL (0.0-0.7); ABSOLUTE LYMPHOCYTES 0.7 thou/uL (0.8-5.3); ABSOLUTE MONOCYTES 0.8 thou/uL (0.0-1.2); ABSOLUTE NEUTROPHILS 11.5 thou/uL (1.6-8.1); BASOPHILS 0.1 %; EOSINOPHILS 1.5 %; HEMATOCRIT 27.1 % (42.0-52.0); HEMOGLOBIN 8.9 gm/dL (14.0-18.0); LYMPHOCYTES 5.6 %; MCH 30.4 pg (26.0-34.0); MCHC 32.8 g/dL (28.0-37.0); MCV 92.8 fL (80.0-100.0); MONOCYTES 5.8 %; MPV 8.2 fl. (7.2-11.1); NUCLEATED RBCS 0 /100WBC; PLATELET COUNT* 162 thou/uL (150-400); RBC 2.92 mil/uL (4.50-6.00); RDW-CV 15.8 % (10.5-14.5); WBC 13.3 thou/uL (4.0-11.0)
[2018-04-14 05:27] LABS: PREALBUMIN 20.6 mg/dL (18.0-35.7)
[2018-04-14 05:31] LABS: CREATININE 0.8 mg/dL (0.6-1.3); POTASSIUM 4.1 mmol/L (3.5-5.1)
[2018-04-14 08:11] VITALS: BP 88/57
[2018-04-14 11:49] VITALS: BP 93/47
--- NOTE | 2018-04-14 15:23 | NUR ---
PT PROGRESSING TOWARDS GOALS THIS SHIFT. PT HAD NO C/O SOA TODAY. ABLE TO AMBULATE IN HALLWAY WITH PHYSICAL THERAPY. PT MAINTAINING OXYGEN SATURATION WITH 2L/NC. UP TO CHAIR FOR MEALS. AT BEDSIDE. CONTINUES ON CARDIZEM GTT. NO OTHER CONCERNS AT THIS TIME. CLWR. WCTM.
[2018-04-14 15:26] VITALS: BP 85/48
[2018-04-14 19:45] VITALS: BP 102/47
--- NOTE | 2018-04-14 23:10 | NUR ---
RECEIVED REPORT AND ASSUMED CARE AT 1900. BP LOW, OTHERWISE VSS. CARDIAC MONITORING IN PLACE. PT DENIES ANY COMPLAINTS OF PAIN. ASSESSMENT COMPLETED CHARTED. PT UP WITH ASSIST, ON 2L NC. BED LOCKED IN LOWEST POSITION, CALL LIGHT WITHIN REACH, BED ALARM ON. MEDICATION ADMIN PER EMAR. WILL CONTINUE TO MONITOR FOR REMAINDER OF THE SHIFT
[2018-04-15] VITALS (8 sets, daily range): BP systolic 91–156; BP diastolic 43–61
[2018-04-15 05:09] LABS: ABSOLUTE EOSINOPHILS 0.1 thou/uL (0.0-0.7); ABSOLUTE LYMPHOCYTES 0.6 thou/uL (0.8-5.3); ABSOLUTE MONOCYTES 0.7 thou/uL (0.0-1.2); ABSOLUTE NEUTROPHILS 11.8 thou/uL (1.6-8.1); BASOPHILS 0.3 %; EOSINOPHILS 0.5 %; HEMOGLOBIN 8.5 gm/dL (14.0-18.0); LYMPHOCYTES 4.7 %; MCH 30.3 pg (26.0-34.0); MCHC 32.7 g/dL (28.0-37.0); MCV 92.6 fL (80.0-100.0); MONOCYTES 5.3 %; MPV 8.2 fl. (7.2-11.1); NUCLEATED RBCS 0 /100WBC; PLATELET COUNT* 161 thou/uL (150-400); POLYS 89.2 %; RDW-CV 16.3 % (10.5-14.5); WBC 13.3 thou/uL (4.0-11.0)
[2018-04-15 05:45] LABS: ALBUMIN 2.4 g/dL (3.4-5.0); CALCIUM 8.2 mg/dL (8.5-10.1); CREATININE 0.8 mg/dL (0.6-1.3); MAGNESIUM 2.1 mg/dL (1.8-2.4); POTASSIUM 4.3 mmol/L (3.5-5.1); TOTAL BILIRUBIN 0.3 mg/dL (<0.1-1.0); TOTAL PROTEIN 5.7 g/dL (6.4-8.2)
--- NOTE | 2018-04-15 10:46 | NUR ---
ASSUMED CARE OF PT THIS AM AROUND 0715- INDEPENDENT JEWELER IN PLACE ORDERED, TRACING A-FIB- UPON ASSESSMENT PT NOTED TO BE RESTING IN BED, WATCHING TV- PT A&O X 4- CONTINENT OF BOWEL AND BLADDER- SBA WITH TRANSFERS FOR SAFETY- LCTA, RESP EVEN AND UN-LABORED- VSS, O2 SAT 98% ON 2L VIA NC-BAD SOFT/ROUND/NON-TENDER, BS X4 QUADS- LAST BM REPORTED X2 DAYS AGO- GOOD PO INTAKE NOTED THIS AM WITH BREAKFAST- IV NOTED TO LEFT HAND INTACT, IV CARDIZEM INFUSSING PRESCIBED AT 10ML/HR-IV BAT GIVEN THIS AM PRESCIBED, NO ADVERSE REACTIONS NOTED- RIGHT SIDE NOTED WITH BANDAGE IN PLACE WITH BRUSING R/T POST THORACENTESIS- PT DENIES ANY C/O PAIN/DISCOMFORT AT THIS TIME- CALL LIGHT AND PERSONAL BELONGINGS WITH IN REACH- HOURLY ROUNDS IN PLACE R/T SAFETY/NEEDS- ALL NEEDS MET AT THIS TIME-WCTM
--- NOTE | 2018-04-15 11:30 | NUR ---
CONTINUE TO FOLLOW, MET WITH PT AND . DISCUSSED DC PLANS AND NEEDS. PT REMAINS ON O2 AT THIS TIME, IS STILL WEAK BUT DOING FAIR IN THERAPY. PT HAS WALKER AT HOME HE USES. HE REPORTS HE IS NORMALLY 'VERY ACTIVE', HAD BEEN COMING TO OUTPT PHYSICAL THERAPY AT [facility] AND WAS PLEASED WITH THAT CARE. PT'S HAS VISION ISSUES AND IS NOT ABLE TO DRIVE, FRIENDS ARE PROVIDING TRANSPORTATION AT THIS TIME. PT NORMALLY DOES DRIVING, ASSISTS WITH MEAL PREP AND IS INDEPENDENT. TALKED WITH HIM ABOUT HH INITIALLY UNTIL STRONGER, HE WAS OPEN TO IT. OPTIONS DISCUSSED, HE WAS CONCERNED ABOUT HAVING THERAPY. CALLED AND FAXED [facility]ERRAL TO [facility] AND HAD LIASON COME OUT TO DISCUSS HH WITH HIM. PT TO GET CHEST TUBE REPLACED, NOT READY FOR DC YET. WILL FOLLOW
--- NOTE | 2018-04-15 13:25 | NUR ---
Nutrition: Pt assessed for LOS. Admitted with HF. Heart Healthy diet ordered. Wt: 197#. Alb 2.4, prealb 20.6. Rx, labs, Hx reviewed. No nutrition concerns at this time. Low risk.
--- NOTE | 2018-04-15 16:38 | NUR ---
PT CURRENTLY OFF UNIT HAVING CHEST TUBE REINSERTED ORDERED THIS SHIFT PER IR- SOLUTIONS EXECUTIVE CLOUD SALES IN PLACE ORDERED, TRACING A-FIB 90-101 THIS SHIFT-CARDIZEM DRIP REMAINS IN PLACE ORDERED, INFUSSING AT 10ML/HR- BP AT 1145 REPORTED TO TO BE 78/39; NOTIFIED WITH ORDERS RECIEVIED AND GIVEN FOR 500CC BOLUS- POST BP AT 1305 NOTED TO BE IMPROVED AT 97/43 HR- 106- IV TO LEFT HAND REMAINS INTACT- GOOD PO INTAKE NOTED WITH MEALS THIS SHIFT- PT MAKES NEEDS KNOWN- ALL NEEDS MET AT THIS TIME-WCTM
--- NOTE | 2018-04-15 22:57 | NUR ---
RECEIVED REPORT AND ASSUMED CARE AT 1900. BP LOW, OTHERWISE VSS. CARDIAC MONITORING IN PLACE. PT DENIES ANY COMPLAINTS OF PAIN. ASSESSMENT COMPLETED CHARTED. PT RESTING IN BED, DRESSING TO R ANTERIOR CHEST TUBE INTACT. DISCUSSED PLAN OF CARE WITH PT, VERBALIZED UNDERSTANDING. PT ON BEDREST POST CHEST TUBE PLACEMENT. ON 2L NC, WITH LOOSE PRODUCTIVE COUGH. BED LOCKED IN LOWEST POSITION, CALL LIGHT WIHTIN REACH, BED ALARM ON. WILL CONTINUE TO MONITOR FOR REMAINDER OF THE SHIFT
[2018-04-16] VITALS (7 sets, daily range): BP systolic 90–113; BP diastolic 45–66
[2018-04-16 05:56] LABS: HEMATOCRIT 26.4 % (42.0-52.0); HEMOGLOBIN 8.6 gm/dL (14.0-18.0); MCH 30.4 pg (26.0-34.0); MCHC 32.7 g/dL (28.0-37.0); MCV 92.9 fL (80.0-100.0); MPV 8.3 fl. (7.2-11.1); NUCLEATED RBCS 0 /100WBC; PLATELET COUNT* 184 thou/uL (150-400); RBC 2.84 mil/uL (4.50-6.00); RDW-CV 16.7 % (10.5-14.5); WBC 11.5 thou/uL (4.0-11.0)
[2018-04-16 06:35] LABS: CALCIUM 8.6 mg/dL (8.5-10.1); CREATININE 0.8 mg/dL (0.6-1.3); POTASSIUM 4.9 mmol/L (3.5-5.1)
[2018-04-16 06:54] LABS: ABSOLUTE LYMPHOCYTES 0.5 thou/uL (0.8-5.3); ABSOLUTE MONOCYTES 0.5 thou/uL (0.0-1.2); ABSOLUTE NEUTROPHILS 10.6 thou/uL (1.6-8.1); PLATELET ESTIMATE ADEQUATE
--- NOTE | 2018-04-16 11:51 | NUR ---
CONTINUE TO FOLLOW, HAD ASKED ABOUT GETTING INFO FOR MEALS ON WHEELS. INFO PACKET GIVEN TO PT. NOT READY FOR DC, HAD CHEST TUBE REPLACED YESTERDAY
--- NOTE | 2018-04-16 17:10 | NUR ---
PT SOMEWHAT PROGRESSING TOWARDS GOALS THIS SHIFT. NOTED THAT PT HAS HAD ABOUT 350 ML OUTPUT ON CHEST TUBE THIS SHIFT COMPARED TO ESTIMATED 700 ML ON PREVIOUS SHIFT. PT SCHEDULED TO HAVE BRONCHOSCOPY SUNDAY. HOLDING LOVENOX AND ASA TOMORROW. PT CONVERTED TO ORAL CARDIZEM THIS SHIFT. TELE AFIB WITH RATE IN THE 90'S. NO OTHER CONCERNS AT THIS TIME. CLWR. WCTM.
[2018-04-17] VITALS: BP 115/66
[2018-04-17 04:00] VITALS: BP 95/53
--- NOTE | 2018-04-17 07:05 | NUR ---
RECEIVED REPORT AND ASSUMED CARE AT 1900. VSS. CARDIAC MONITORING IN PLACE. PT DENIES ANY COMPLAINTS OF PAIN. ASSESSMENT COMPLETED CHARTED. DISCUSSED PLAN OF CARE, VERBALIZED UNDERSTANDING. PT CHEST TUBE INTACT, DRAINING. PT UP SBA, ON 2LNC PRN. HOURLY ROUNDING COMPLETED AND ALL NEEDS MET. NURSING WILL CONTINUE TO MONITOR
--- NOTE | 2018-04-17 08:12 | NUR ---
AT 0300 NURSING NOTICED FLUID POCKET FORMING RIGHT LOWER FLANK, INFERIOR TO DRESSING FOR CHEST TUBE. APPEARED RAISED AND SLIGHTLY FIRM. MARKING MADE AROUNDINITIAL DISCOVERY AREA, PT IN NO APPARENT DISTRESS, NOT SOA, DENIES COMPLAINTS OF PAIN. CHEST TUBE STILL DRAINING, VSS. PASSED ON TO ONCOMING NURSE, NOTIFIED, CXR ORDERED.
--- NOTE | 2018-04-17 09:12 | NUR ---
ASSUMED PT. CARE AND RECEIVED REPORT AT 0730. PT A/OX4, VSS, MONITOR ON TRACING AFIB. PT DENIES CURRENT PAIN/SOB. ON RA @ 97%. CHEST TUBE TO RIGHT AT -20 SUCTION. PT. EXHIBITS COARSE CRACKLES TO LOWER LOBES BILATERALLY. NOTED BY KEVIN RN, AND REASSESS AT SHIFT RAISED AREA, POSSIBLE FLUID POCKET TO RIGHT SIDE JUST BELOW CHEST TUBE DRESSING. AREA ORIGINALLY MARKED BY KEVIN RN TO MONITOR, DOES APPEAR TO HAVE GROWN SLIGHTLY. KEVIN RN CONTACTED IR/RADIOLOGIST TO ASSESS AND NEW ORDER RECEIVED FOR XRAY. FULL ASSESSMENT COMPLETED, REFER TO CHARTING. PT. DENIES ANY CURRENT NEEDS AT THIS TIME. CALL LIGHT IN REACH, WILL CONTINUE WITH PLAN OF CARE.
[2018-04-17 09:15] VITALS: BP 105/42
[2018-04-17 12:00] VITALS: BP 101/56
[2018-04-17 16:00] VITALS: BP 95/50
--- NOTE | 2018-04-17 16:13 | NUR ---
ASSESSED PT. RIGHT SIDE FLUID POCKET WITH DR. ORNELAS AT BEDSIDE. DR. ORNELAS CONTACT DR. ROSARIO TO DISCUSS. NO INTERVENTION NEEDED AT THIS TIME. WANTS PT. TO HAVE ULTRASOUND WITH BRONCH TOMORROW. WILL CONTINUE TO MONITOR.
--- NOTE | 2018-04-17 18:45 | NUR ---
PT. UP IN RECLINER GOOD PORTION OF THE DAY. NO COMPLAINTS OF PAIN/SOB. AWARE OF PLAN FOR BRONCH TOMORROW. DISCUSSED HOLDING BLOOD THINNERS TONIGHT. HOURLY ROUNDING COMPLETED THROUGH OUT THE DAY FOR PT. SAFETY.
[2018-04-17 20:00] VITALS: BP 94/45
[2018-04-18] VITALS: BP 97/50
[2018-04-18 04:00] VITALS: BP 93/52
--- NOTE | 2018-04-18 05:59 | NUR ---
PATIENT REMAINS STABLE THIS SHIFT WITH NO C/O SHORTNESS OF AIR OR PAIN. CHEST TUBE REMAINS IN PLACE TO RIGHT CHEST, -20 SUCTION. OUTPUT SEROUS FLUID, AMOUNT CHARTED. BRONCHOSCOPY AND ABD US FOR TODAY. PATIENT NPO AND VERBALIZES UNDERSTANDING OF PROCEDURE. NO CONCERNS VOICED. HOURLY ROUNDING OBSERVED. CALL LIGHT WITHIN REACH.
[2018-04-18 08:00] VITALS: BP 94/55
--- NOTE | 2018-04-18 10:27 | NUR ---
ASSUMED PT CARE AT 0700, PT SITTING UP IN CHAIR, CHEST TUBE TO RIGHT SIDE AT -20 SUCTION, CONT TO HAVE SMALL POCKET OF FLUID BELOW TUBE SITE, ULTRASOUND TO BE DONE AT SAME TIME BRONCHOSCOPY THIS AM. BP IS SOFT AT 94/55, AFIB TRACING ON MAINTENANCE AIDE, 97%RA, LS CRACKLES TO RIGHT LOWER LOBE, DENIES ANY SOA AT THIS TIME. WILL CONT TO MONITOR
--- NOTE | 2018-04-18 12:47 | OP ---
[address] [address] OPERATIVE REPORT Name: YOLIJESSY Room: [address] IN M.R.#: [id number] Admission: 04/07/18 Attend Phys: Ollie Al MD Discharge: Date of : 31 Report #: [id number] THIS REPORT FOR: //name// CC: Ollie Romero DATE OF SERVICE: 04/18/2018 TYPE OF PROCEDURE: Bronchoscopy, transbronchial biopsies, wash right lower lobe. INDICATION: Persistent infiltrate, history of TB. Consent in the chart. DESCRIPTION OF PROCEDURE: The patient was brought into the bronchoscopy suite. After calling timeout, 1 mg of Versed IV and 25 mcg of fentanyl IV was given through the IV route. After that, the bronchoscope was introduced through the right nostril, 2% lidocaine was used to anesthetize the airways as I advanced the bronchoscope. The vocal cord looks healthy and normal during adduction and abduction. The trachea looks healthy and normal. Alanna also looked normal. I did inspect the left lung first down to segmental bronchi. No endobronchial lesion or increased secretions. After that, right lung was inspected. Right upper lobe, right middle lobe, right lower lobe were inspected. No endobronchial lesion, no secretions, no abnormality. After that, 2 transbronchial biopsies were done from the right lower lobe followed by wash from the right lower lobe with good return. The patient tolerated the procedure well. Estimated blood loss was minimal. The patient was awake after the procedure. The transbronchial biopsies were sent for pathology. The wash was sent for Gram stain culture and sensitivity, AFB stain, culture and sensitivity, fungus stain and sensitivity, silver stain and for cytology. <ELECTRONICALLY SIGNED> By: Judah Campos MD 04/18/18 1247 1141 [id number] Campos MD /nt
--- NOTE | 2018-04-18 13:24 | NUR ---
CONTINUE TO FOLLOW, MET WITH PT'S . SHE IS CONCERNED PT MAY NEED SNF. DISCUSSED OPTIONS. THEY DO NOT WANT [facility] OR [facility]. SHE WILL TALK FURTHER WITH PT, DID SUGGEST WAITING UNTIL CHEST TUBE OUT TO EVAL, THEY WILL CONSIDER OPTIONS
[2018-04-18 16:00] VITALS: BP 90/55
--- NOTE | 2018-04-18 17:47 | NUR ---
PT LYING IN BED, CALL LIGHT IN REACH, FALL PRECAUTIONS IN PLACE, HOURLY ROUNDING COMPLETED. PT HAD BRONCHOSCOPY WITH ULTRASOUND THIS AM, PT TOLERATED WELL. CHEST TUBE TO RIGHT SIDE DRAINING SEROSANGUINOUS DRAINAGE, CHEST TUBE ATRIUM CHANGED THIS SHIFT, OUTPUT DOCUMENTED ORDERED. ONE TIME ORDER FOR DIGOXIN D/T SOFT PRESSURES AND TACHYCARDIC. PT UP WITH STANDBY ASSIST TO URINAL AND BEDSIDE COMMODE, BM THIS SHIFT. DENIES ANY PAIN, SOA, LS CONT TO HAVE CRACKLES IN RIGHT LOWER LOBE.
[2018-04-18 20:00] VITALS: BP 90/50
[2018-04-19] VITALS (7 sets, daily range): BP systolic 64–115; BP diastolic 42–62
[2018-04-19 05:34] LABS: ABSOLUTE LYMPHOCYTES 0.4 thou/uL (0.8-5.3); ABSOLUTE MONOCYTES 0.3 thou/uL (0.0-1.2); ABSOLUTE NEUTROPHILS 11.6 thou/uL (1.6-8.1); HEMATOCRIT 26.8 % (42.0-52.0); HEMOGLOBIN 8.9 gm/dL (14.0-18.0); LYMPHOCYTES 2.9 %; MCH 30.7 pg (26.0-34.0); MCHC 33.2 g/dL (28.0-37.0); MCV 92.4 fL (80.0-100.0); MONOCYTES 2.8 %; MPV 7.9 fl. (7.2-11.1); NUCLEATED RBCS 0 /100WBC; PLATELET COUNT* 233 thou/uL (150-400); POLYS 94.3 %; RDW-CV 16.9 % (10.5-14.5); WBC 12.3 thou/uL (4.0-11.0)
--- NOTE | 2018-04-19 05:40 | NUR ---
PT AWAKE AND ORIENTED X4. MEDICAL LEGAL INVESTIGATOR IN PLACE TRACING AFIB. CHEST TUBE INTACT, CONNECTED TO ATRIUM WITH SEROUSANGUINOUS OUTPUT. INTERMITTENT FLUCTUATIONS NOTED. FLUID ACCUMULATION UNDER THE SKIN ON THE RIGHT LATERAL ABDOMEN NOTED, NO CHANGE IN SIZE SEEN. NOTED REDNESS AND TENDERNESS ON IV SITE AT APPROX. 2300. IV SITE CHANGED. COLD COMPRESS APPLIED OVER THE SITE. PAIN MEDS GIVEN PER MAR. PT VERBALIZED PAIN RELIEF. CALL LIGHT IN REACH. FALL PRECAUTIONS IN PLACE. HOURLY ROUNDING DONE FOR PT SAFETY.
[2018-04-19 05:44] LABS: CALCIUM 8.2 mg/dL (8.5-10.1); CREATININE 0.9 mg/dL (0.6-1.3); POTASSIUM 4.5 mmol/L (3.5-5.1)
--- NOTE | 2018-04-19 09:00 | NUR ---
REC'D REPORT FROM NOC RN, ASSUMED CARE OF PT APPROX 0730. A&OX4, ABLE TO COMMUNICATE NEEDS TO STAFF. SURVIVAL EQUIPMENT REPAIRER IN PLACE, AFIB. O2 SATS >92% ON RA. CHEST TUBE IN PLACE, DRAINING SEROSANGUINEOUS FLUID. ASSESSMENT COMPLETE. VS OBTAINED. CALL LIGHT IN REACH. HOURLY ROUNDING FOR SAFETY AND PT NEEDS.
--- NOTE | 2018-04-19 12:05 | PATH ---
[address] [address] PATHOLOGY RPT PROCEDURE Name: JESSY KENT Room: [address] IN [facility].#: [id number] Admission: 04/07/18 Date of : 31 Discharge: Report #: [id number] Path Case #: [id number] Note [facility] Accession Number: [id number] TESTS RESULT FLAG UNITS REF RANGE LAB Clinician Provided Cytology Information No. of containers..01 Other (Miscellaneous) Source: PLEURAL FLUID DIAGNOSIS: 02 PLEURAL FLUID NEGATIVE FOR MALIGNANCY. LOW CELLULARITY WITH FEW REACTIVE MESOTHELIAL CELLS AND INFLAMMATORY CELLS. THIS INTERPRETATION INCLUDES EVALUATION OF A CELL BLOCK. Signed out by: 02 Levi Dejesus MD, Pathologist NPI- [id number] Performed by: 01 Ivana Corbett, Geology Technician ([facility]) Gross description: 01 7ML, REDDISH YELLOW, CLOUDY /LCS FLAG LEGEND: L-Low Normal,H-High Normal,LL-Alert Low,HH-Alert High <-Panic Low,>-Panic High,A-Abnormal,AA-Critical Abnormal Performed at: [address] [place] [address] Petey Henning MD, [address] [place] [address] [address] [place] [address] Levi Dejesus MD, Specimen Comment: A courtesy copy of this report has been sent to Specimen Comment: [phone]. Specimen Comment: A duplicate report has been generated due to demographic updates. Performed at: [address] [place] [address] [address], [place], [place] [id number] MD Petey Henning MD Phone: [phone]
--- NOTE | 2018-04-19 16:40 | NUR ---
REC'D REPORT FROM PORCELAIN TURNER THAT PT HAS BP BELOW 65 SYSTOLIC AT 1600 . ASSESSED PT WHO STATES HE DOES NOT FEEL ANY SYMPTOMS FROM THE LOW BP. PT IS A&OX4. REASSESSED BP AT 1630, BP IS ABOVE 100 SYSTOLIC. PT CONTINUES TO REPORT NO SYMPTOMS.
--- NOTE | 2018-04-19 17:00 | NUR ---
REC'D REPORT FROM ENFORCEMENT SAFETY OFFICER AND NEEDLE PUNCH MACHINE OPERATOR HELPER THAT PT CALLED OUT FOR ASSISTANCE WHILE THIS NURSE WAS IN ANOTHER PT ROOM. PT REPORTED DIZZYNESS AND DIFFICULTY SEEING. VS OBTAINED AND WERE WNL. REPORTED BP TO THIS NURSE AT THE TIME OF SYMPTOMS 120/65. ASSESSED PT AFTER THIS WAS REPORTED, PT REPORTS HE IS NO LONGER EXPERIENCING DIZZYNESS AND HAS RETURNED TO HIS NORMAL STATE. PT REPORTS THIS EPISODE LASTED JUST A FEW MINUTES. HE REPORTS HE DID NOT LOSE CONSCIOUSNESS. ADVISED PT THAT HE NEEDS STAFF PRESENT IN THE ROOM WHENEVER HE IS NOT IN THE BED OR CHAIR. PT AGREES WITH THIS PLAN. CALL LIGHT WITHIN REACH. FREQUENT CHECKS.
[2018-04-20] VITALS: BP 106/42
[2018-04-20 04:00] VITALS: BP 115/46
[2018-04-20 05:37] LABS: ABSOLUTE LYMPHOCYTES 0.3 thou/uL (0.8-5.3); ABSOLUTE MONOCYTES 0.2 thou/uL (0.0-1.2); ABSOLUTE NEUTROPHILS 10.3 thou/uL (1.6-8.1); BASOPHILS 0.1 %; HEMATOCRIT 27.9 % (42.0-52.0); HEMOGLOBIN 9.3 gm/dL (14.0-18.0); LYMPHOCYTES 2.9 %; MCH 30.9 pg (26.0-34.0); MCHC 33.4 g/dL (28.0-37.0); MCV 92.7 fL (80.0-100.0); MONOCYTES 2.3 %; MPV 7.9 fl. (7.2-11.1); NUCLEATED RBCS 0 /100WBC; PLATELET COUNT* 243 thou/uL (150-400); POLYS 94.7 %; RBC 3.01 mil/uL (4.50-6.00); RDW-CV 17.1 % (10.5-14.5); WBC 10.8 thou/uL (4.0-11.0)
[2018-04-20 05:43] LABS: PROTIME 10.3 Seconds (9.20-11.50)
--- NOTE | 2018-04-20 06:04 | NUR ---
ASSUMED PT CARE AT 1930. PT AWAKE AND ORIENTED X4. DROP MAN IN PLACE, TRACING AFIB. VSS. PT DENIES ANY PAIN. WITH RIGHT CHEST TUBE INTACT WITH SEROUS OUTPUT. O2 SAT IS 96% IN ROOM AIR. CALL LIGHT IN REACH. HOURLY ROUNDING DONE FOR PT SAFETY. FALL PRECATIONS IN PLACE.
[2018-04-20 08:00] VITALS: BP 119/61
[2018-04-20 11:30] VITALS: BP 99/38
--- NOTE | 2018-04-20 12:05 | NUR ---
ASSUMED CARE OF PATIENT THIS AM AT 0730. PATIENT IS ALERT AND ORIENTED X 4. HE DENIES PAIN THIS AM. CHEST TUBE IN PLACE. SMALL AMOUNT OF SEROUS DRAINAGE NOTED. PCXRAY DONE THIS AM. PATIENT ASSISTED UP TO THE CHAIR. HE IS TAKING HIS DIET WELL. TELE SHOWS CHRONIC AFIB WITH A CONTOLLED RATE. WILL CONTINUE TO MONITOR PATIENT SAFETY THROUGHOUT THE DAY. NO FALLS OR INJURY.
[2018-04-20 16:29] VITALS: BP 105/46
[2018-04-20 20:20] VITALS: BP 121/54
[2018-04-21] VITALS: BP 112/54
[2018-04-21 04:00] VITALS: BP 107/50
[2018-04-21 05:06] LABS: HEMATOCRIT 27.3 % (42.0-52.0); HEMOGLOBIN 9.1 gm/dL (14.0-18.0); MCH 30.5 pg (26.0-34.0); MCHC 33.1 g/dL (28.0-37.0); MPV 7.8 fl. (7.2-11.1); NUCLEATED RBCS 0 /100WBC; PLATELET COUNT* 256 thou/uL (150-400); RBC 2.97 mil/uL (4.50-6.00); RDW-CV 17.2 % (10.5-14.5); WBC 10.8 thou/uL (4.0-11.0)
--- NOTE | 2018-04-21 05:06 | NUR ---
PT CARE ASSUMED AT 1930. SAT MAINTAINED IN RA. ALERT AND ORIENTED X4. CALL LIGHT WITHIN REACH AND BED IN LOW POSITION. DENIES SOB AND PAIN. HOURLY ROUNDING DONE FOR PT SAFETY.
[2018-04-21 05:26] LABS: CALCIUM 8.4 mg/dL (8.5-10.1); CREATININE 0.9 mg/dL (0.6-1.3); MAGNESIUM 2.1 mg/dL (1.8-2.4); POTASSIUM 4.1 mmol/L (3.5-5.1)
[2018-04-21 05:28] LABS: PROTIME 10.3 Seconds (9.20-11.50)
[2018-04-21 07:44] LABS: ABSOLUTE NEUTROPHILS 9.8 thou/uL (1.6-8.1); PLATELET ESTIMATE ADEQUATE
[2018-04-21 07:45] LABS: ANISOCYTOSIS 1+
[2018-04-21 08:00] VITALS: BP 100/53
[2018-04-21 15:52] VITALS: BP 90/47
[2018-04-21 20:30] VITALS: BP 108/57
[2018-04-22] VITALS: BP 110/48
[2018-04-22 04:00] VITALS: BP 96/41
[2018-04-22 05:05] LABS: ABSOLUTE BASOPHILS 0.1 thou/uL (0.0-0.2); ABSOLUTE EOSINOPHILS 0.1 thou/uL (0.0-0.7); ABSOLUTE LYMPHOCYTES 0.6 thou/uL (0.8-5.3); ABSOLUTE MONOCYTES 0.8 thou/uL (0.0-1.2); BASOPHILS 0.4 %; EOSINOPHILS 0.5 %; HEMOGLOBIN 9.1 gm/dL (14.0-18.0); LYMPHOCYTES 5.1 %; MCHC 32.5 g/dL (28.0-37.0); MCV 92.2 fL (80.0-100.0); MONOCYTES 6.1 %; MPV 7.7 fl. (7.2-11.1); NUCLEATED RBCS 0 /100WBC; PLATELET COUNT* 287 thou/uL (150-400); POLYS 87.9 %; RBC 3.03 mil/uL (4.50-6.00); RDW-CV 16.7 % (10.5-14.5); WBC 12.5 thou/uL (4.0-11.0)
--- NOTE | 2018-04-22 07:25 | NUR ---
CHANGE OF SHIFT BEDSIDE REPORT GIVEN PATIENT SEEN AT BEDSIDE, IN BED RESTING ASSUMED PATIENT CARE
[2018-04-22 08:00] VITALS: BP 92/45
[2018-04-22 12:38] VITALS: BP 107/47
--- NOTE | 2018-04-22 13:51 | NUR ---
CONTINUE TO FOLLOW, MET WITH PT AND SPOUSE. THEY HAVE DECIDED THAT PT WOULD LIKE TO RETURN HOME AT [place] WITH HH, STILL WANT TO USE [facility]. [facility] UPDATED. CHEST TUBE OUT, ASKED THAT THERAPY SEE PT TO AMBULATE HE HAS ONLY BEEN UP TO CHAIR FOR LAST SEVERAL DAYS. ASKED NURSE TO MOBILIZE PT ALSO. ASKED TO TALK WITH BARREL SCRAPER, YURY CAME AND TALKED WITH THEM. WILL FOLLOW
[2018-04-22 20:30] VITALS: BP 111/52
[2018-04-23] VITALS: BP 113/50; BP 128/67
[2018-04-23 04:08] VITALS: BP 125/74
--- NOTE | 2018-04-23 05:23 | NUR ---
PT CARE ASSUMED AT 1930. SAT MAINTAINED IN RA. CALL LIGHT WITHIN REACH AND BED IN LOW POSITION. DENIES SOB AND PAIN. ALERT AND ORIENTED X4. HOURLY ROUNDING DONE FOR PT SAFETY. DRESSING SITE C/D/I.
[2018-04-23 06:15] LABS: PROTIME 10.7 Seconds (9.20-11.50)
[2018-04-23 06:37] LABS: CALCIUM 8.5 mg/dL (8.5-10.1); CREATININE 0.8 mg/dL (0.6-1.3); POTASSIUM 4.8 mmol/L (3.5-5.1)
--- NOTE | 2018-04-23 07:15 | NUR ---
CHANGE OF SHIFT BEDSIDE REPORT GIVEN PATIENT SEEN AT [facility], IN BED RESTING ASSUMED PATIENT CARE
[2018-04-23 08:00] VITALS: BP 112/56
[2018-04-23 11:47] VITALS: BP 89/40
--- NOTE | 2018-04-23 12:04 | NUR ---
ORDERS NOTED FOR DC HOME WITH HH, SET UP [facility], ALSO SET UP [facility] WITH PT'S PERMISSION. PT HAS WALKER AT HOME. SON WILL PROVIDE TRANSPORT HOME. CALLED AND FAXED REFERRALS TO HH AND [facility]. ANSWERED QUESTIONS.
[2018-04-23] MEDS ORDERED: DIGOXIN250 MCG PO (12:49)
[2018-04-23] MEDS ORDERED: PREDNISONE 10 M10 MG PO (13:09)
--- NOTE | 2018-04-23 13:09 | PATH ---
[address] [place] [address] PATHOLOGY RPT PROCEDURE Name: OCTAVIO SHAW Room: [address] IN .R.#: [id number] Admission: 04/07/18 Date of : 32 Discharge: Report #: [id number] Path Case #: [id number] [facility] Accession Number: [id number] . 01 Material submitted: . RLL BRONCH . 01 Clinical history: . Hypoxia/BRONCH . 02 Diagnosis: RLL Bronch: - Benign pulmonary parenchyma and bronchial mucosa including hyaline cartilage, with mild acute inflammation, negative for granulomas and dysplasia. (DARYA:pit 04/22/2018) QTP/04/22/2018 . 02 Electronically signed: . Levi Dejesus MD, Pathologist NPI- [id number] . 01 Gross description: . The specimen is received in formalin, labeled "Octavio Shaw, RLL (right lower lung)" are 2 fragments of vitale tissue measuring 0.3 x 0.2 x 0.1 cm and 0.2 x 0.2 x 0.1 cm. They are entirely submitted in A1. (SDY; 04/19/2018) SYU/SYU . 02 Pathologist provided ICD-10: J20.9 . 02 CPT . 138570 Specimen Comment: A courtesy copy of this report has been sent to Specimen Comment: [phone], . Specimen Comment: Report sent to DR WELLS / DR WALKER Specimen Comment: A duplicate report has been generated due to demographic updates. Performed at: [address], [place], [place] [id number] MD Petey Henning MD Phone: [phone] Performed at: 02 [facility] [address], [place], [place] [id number] MD Levi Dejesus MD Phone: [phone]
--- NOTE | 2018-04-23 15:00 | NUR ---
discharge to home with h/h dc instructions given, acknowledged, and signed copies given iv sl and heart monitor removed personal belongings returned patient assisted out via wc good condition to waiting car
--- NOTE | 2018-04-25 07:06 | PATH ---
[address] [address] PATHOLOGY RPT PROCEDURE Name: JESSY KENT Room: [address] IN [facility]#: [id number] Admission: 04/07/18 Date of : 32 Discharge: 04/23/18 Report #: [id number] Path Case #: [id number] Note [facility] Accession Number: [id number] TESTS RESULT FLAG UNITS REF RANGE LAB Clinician Provided Cytology Information No. of containers..01 Other (Miscellaneous) Source: RLL BRONCH WASH DIAGNOSIS: 02 RLL BRONCH WASH NEGATIVE FOR MALIGNANT CELLS. BRONCHIAL EPITHELIAL CELLS AND PULMONARY MACROPHAGES (DUST CELLS) ARE PRESENT. SILVER METHENAMINE STAINED SMEARS ARE NEGATIVE FOR PNEUMOCYSTIS JIROVECI. FUNGAL/YEAST ORGANISMS MORPHOLOGICALLY CONSISTENT WITH RAIN SPECIES ARE PRESENT. Signed out by: 02 Levi Dejesus MD, Pathologist NPI- [id number] Performed by: Donna Coleman, Automotive Hardware Engineer ([facility]) Gross description: 01 25ML, RED, CLOUDY /LCS FLAG LEGEND: L-Low Normal,H-High Normal,LL-Alert Low,HH-Alert High <-Panic Low,>-Panic High,A-Abnormal,AA-Critical Abnormal Performed at: [address] [place] [address] Petey Henning MD, [address] [place] [id number] Levi Dejesus MD, Specimen Comment: A courtesy copy of this report has been sent to Specimen Comment: [phone]. Specimen Comment: Report sent to Specimen Comment: A duplicate report has been generated due to demographic updates. Performed at: [address], [place], [place] [id number] MD Petey Henning MD Phone: [phone]
== END 2018-04-23 14:55 | disposition home health service (06) | DRG 177 ==
LOC: M.ERS 03:05 → M.2W 04:38 → M.TBA-ER 04:38 → M.2W 05:01
PROVIDERS: Emergency Medicine; Family Medicine; Internal Medicine; Internal Medicine Cardiovascular Disease; Internal Medicine Critical Care Medicine; Radiology Diagnostic Radiology; ADMIT Internal Medicine
PROC: 0W9930Z Drainage of Right Pleural Cavity with Drainage Device, Percutaneous Approach (ICD-10-PCS; principal; 2018-04-07)
PROC: 0W9930Z Drainage of Right Pleural Cavity with Drainage Device, Percutaneous Approach (ICD-10-PCS; 2018-04-09)
PROC: 30233K1 Transfusion of Nonautologous Frozen Plasma into Peripheral Vein, Percutaneous Approach (ICD-10-PCS; 2018-04-09)
PROC: 0W9930Z Drainage of Right Pleural Cavity with Drainage Device, Percutaneous Approach (ICD-10-PCS; 2018-04-10)
PROC: 0W9930Z Drainage of Right Pleural Cavity with Drainage Device, Percutaneous Approach (ICD-10-PCS; 2018-04-15)
PROC: 0BB68ZX Excision of Right Lower Lobe Bronchus, Via Natural or Artificial Opening Endoscopic, Diagnostic (ICD-10-PCS; 2018-04-18)
PROC: 0BDF8ZX Extraction of Right Lower Lung Lobe, Via Natural or Artificial Opening Endoscopic, Diagnostic (ICD-10-PCS; 2018-04-18)
DX: J15.6 Pneumonia due to other Gram-negative bacteria (principal); J96.21 Acute and chronic respiratory failure with hypoxia; I50.33 Acute on chronic diastolic (congestive) heart failure; J91.8 Pleural effusion in other conditions classified elsewhere; J93.83 Other pneumothorax; J44.0 Chronic obstructive pulmonary disease with (acute) lower respiratory infection; J44.1 Chronic obstructive pulmonary disease with (acute) exacerbation; N39.0 Urinary tract infection, site not specified; T82.838A Hemorrhage due to vascular prosthetic devices, implants and grafts, initial encounter; T85.628A Displacement of other specified internal prosthetic devices, implants and grafts, initial encounter; I11.0 Hypertensive heart disease with heart failure; Y83.8 Other surgical procedures as the cause of abnormal reaction of the patient, or of later complication, without mention of misadventure at the time of the procedure; I35.1 Nonrheumatic aortic (valve) insufficiency; I48.0 Paroxysmal atrial fibrillation; D72.829 Elevated white blood cell count, unspecified; E78.5 Hyperlipidemia, unspecified; Z79.51 Long term (current) use of inhaled steroids; Z79.2 Long term (current) use of antibiotics; Y92.89 Other specified places as the place of occurrence of the external cause; Z79.899 Other long term (current) drug therapy; Z79.01 Long term (current) use of anticoagulants; Z88.2 Allergy status to sulfonamides; Z88.1 Allergy status to other antibiotic agents; Z88.8 Allergy status to other drugs, medicaments and biological substances; Z87.891 Personal history of nicotine dependence

== ENCOUNTER → 2018-05-01 | Outpatient (CLI) | payer MEDICARE, OTHER ==
[~2018-05-01] MED LIST changes: +DIGOXIN250 MCG PO; +POTASSIUM20 PO
[2018-05-01 13:33] LABS: HEMATOCRIT 31.5 % (42.0-52.0); HEMOGLOBIN 10.2 gm/dL (14.0-18.0); MCH 29.2 pg (26.0-34.0); MCHC 32.6 g/dL (28.0-37.0); MCV 89.6 fL (80.0-100.0); MPV 7.4 fl. (7.2-11.1); NUCLEATED RBCS 0 /100WBC; PLATELET COUNT* 292 thou/uL (150-400); RBC 3.51 mil/uL (4.50-6.00); WBC 10.9 thou/uL (4.0-11.0)
[2018-05-01 13:34] LABS: INR 2.1; PROTIME 21.5 Seconds (9.20-11.50)
[2018-05-01 13:59] LABS: ABSOLUTE LYMPHOCYTES 0.1 thou/uL (0.8-5.3); ABSOLUTE MONOCYTES 0.2 thou/uL (0.0-1.2); ABSOLUTE NEUTROPHILS 10.6 thou/uL (1.6-8.1); PLATELET ESTIMATE ADEQUATE
[2018-05-01 14:00] LABS: ANISOCYTOSIS 2+
== END ==
LOC: M.RAD 12:49
PROVIDERS: Registered Nurse
DX: I51.7 Cardiomegaly (principal); I48.91 Unspecified atrial fibrillation; J90 Pleural effusion, not elsewhere classified; J92.9 Pleural plaque without asbestos

== ENCOUNTER → 2018-06-14 | Outpatient (CLI) | payer MEDICARE, OTHER | LOC: M.LAB 16:02 | DX: I48.91 Unspecified atrial fibrillation (principal) ==